=== PATIENT | female | born 1980 | race Caucasian/White ===

== ENCOUNTER 2016-10-25 11:34 | Emergency (ER) | payer MEDICARE, MEDICAID ==
[2016-10-25 11:58] VITALS: BP 125/92
--- NOTE | 2016-10-25 13:09 | UC ---
Lower Extremity/Ankle HPI - HPI Summary HPI Summary: complaint of left ankle pain after twisting it after getting off the toilet yesterday able to ambulate with tenderness last night swollen on lateral side of ankle constant aching pain that radites into her foot resting lessens the pain movement increases the pain has taken tylenol and ibuprofen with minimal relief can't fell from the waist down normally due to spinal surgery - History of Current Complaint Chief Complaint: UCLowerExtremity Stated Complaint: LEFT FOOT/ANKLE INJURY Time Seen by Provider: 10/25/16 12:58 Hx Obtained From: Patient Hx Last Menstrual Period: 10/24/16 - Allergies/Home Medications Allergies/Adverse Reactions: Allergies Allergy/AdvReac Type Severity Reaction Status Date / Time Latex Allergy Hives Verified 07/30/16 13:23 PMH/Surg Hx/FS Hx/Imm Hx Previously Healthy: Yes Endocrine History Of: Denies: Diabetes Cardiovascular History Of: Denies: Hypertension, Pacemaker/ICD GI/ History Of: Denies: Renal Disease Psychological History Of: Reports: Anxiety, Depression - Surgical History Surgical History: Yes Surgery Procedure, Year, and Place: LT HIP - A BABY -. TONSILECTOMY. C SECTION 11/06. LAMINECTOMY 02/05. BACTERIAL WASHOUT 03/08. SPINAL TUMOR REMOVAL 2014 - Family History Known Family History: Positive: None Negative: Cardiac Disease, Hypertension, Diabetes - Social History Occupation: Unemployed Lives: With Family Alcohol Use: None Substance Use Type: None Smoking Status (MU): Never Smoked Tobacco Have You Smoked in the Last Year: No Review of Systems Constitutional: Negative Skin: Negative Eyes: Negative ENT: Negative Respiratory: Negative Cardiovascular: Negative Gastrointestinal: Negative Genitourinary: Negative Motor: Negative Neurovascular: Negative Musculoskeletal: Other: - left ankle paion Neurological: Negative Psychological: Negative All Other Systems Reviewed And Are Negative: Yes Physical Exam Triage Information Reviewed: Yes Appearance: No Pain Distress, Well-Nourished, Obese Vital Signs: Initial Vital Signs Temp 97.7 F 10/25/16 11:52 Pulse 93 10/25/16 11:52 Resp 16 10/25/16 11:52 BP 125/92 10/25/16 11:52 Pulse Ox 100 10/25/16 11:52 Vital Signs Reviewed: Yes Eyes: Positive: Conjunctiva Clear ENT: Positive: Pharynx normal, TMs normal Neck: Positive: No Lymphadenopathy Respiratory: Positive: Lungs clear, Normal breath sounds, No respiratory distress Cardiovascular: Positive: RRR, No Murmur, Pulses Normal Abdomen Description: Positive: Nontender, Soft Bowel Sounds: Positive: Present Musculoskeletal: Positive: Other: - LLE- edema and tenderness inlateral side of ankle. tenderness over 5th metatarsal, pain with inversion Full ROM dorsi/ plantar flexion, inversion & eversion. Mccamey test negative.no step off in Achilles tendon but tendern to palpation Neurological: Positive: Alert Psychological Exam: Normal Skin Exam: Normal Lower Extremity Course/Dx - Differential Dx/Diagnosis Differential Diagnosis/HQI/PQRI: Fracture (Closed), Sprain, Strain Provider Diagnoses: left ankle sprain Discharge - Discharge Plan Condition: Stable Disposition: HOME Patient Education Materials: Ankle Sprain (ED), RICE Therapy (ED) Referrals: Fariha ANG,Malvin Queen [Primary Care Provider] - [facility] [Outside] Additional Instructions: ANKLE SPRAIN What is an Ankle Sprain? An ankle sprain is a partial or complete tearing of the ligaments that support the ankle joint. Most ankle sprains affect the ligaments on the outside of the joint. X-rays will not show ligament injury and are often not needed for simple sprains. Symptoms Might Include: Pain in your ankle, foot, or lower leg area Bruising and/or Swelling Possible deformity (bones not lined up as usual) Treatment Recommendations: You should prop your foot up above the level of your heart for the first 24 to 48 hours. This helps cut down on the pain and swelling. You should put an ice pack wrapped in a towel on the injured area for 15 to 20 minutes every 2 to 3 hours when you are awake for the first 2 to 3 days. A compression dressing, like a Velcro splint or Amarjit wrap, will help give support and cut down on swelling. If the wrap is too tight, it may cause numbness, tingling, paleness, or a cool feeling. If this happens, the wrap should be taken off and put back on looser. Crutches should be used if there is any pain when you put your weight on your foot. You usually only need to use crutches for the first few days. If you have a more severe sprain you might need to use them longer. As the pain gets better , try to walk without the crutches a little at a time until you can walk without any pain. When your sprain starts to get better you should start exercising. Sit with your ankle off the ground and move it around in all directions 4 to 6 times a day as long as it is not painful. When you can walk without crutches, slowly start to increase your activity by walking short distances. Remember not to overdo it. It may take 3 to 4 weeks to completely get better, even for a mild sprain. It can take much longer for more severe sprains. More severe sprains will need a splint. You will need to see a healthcare provider again in the next 2 to 3 days. [id number] anti-inflammatory medicine like ibuprofen (Motrin, Advil) or naproxen (Aleve) may help with both the pain and the swelling in your joints. You should not take these medicines if you have a history of bleeding in your stomach. The healthcare provider may give you a prescription for a narcotic pain medicine to ease the pain. Do not drive or do things that need your full attention after taking this medication. Call Your Doctor or Return Here IF: You have a lot more pain or swelling. If the pain is not getting better in 3 days. If you start to have numbness or tingling in your foot or ankle. If the injured area starts to feel cool to the touch or is pale or bluish in color. If you start to have any other symptoms that worry you.
--- NOTE | 2016-10-25 13:34 | RAD ---
INDICATION: Lateral left foot and ankle pain COMPARISON: None TECHNIQUE: AP, lateral, and oblique views were obtained. FINDINGS: There are mild hammertoe deformities. The bony structures, joint spaces, and soft tissues are otherwise normal for age. IMPRESSION: NO ACUTE BONY FINDINGS.
--- NOTE | 2016-10-25 13:35 | RAD ---
INDICATION: Lateral left foot and ankle pain COMPARISON: None TECHNIQUE: AP, lateral, and oblique views were obtained. FINDINGS: There are small heel spurs. The bony structures, joint spaces, and soft tissues are otherwise normal for age. IMPRESSION: NO ACUTE BONY FINDINGS.
== END 2016-10-25 14:19 | disposition home or self-care (01) ==
LOC: UCEAST 11:34
DX: S93.402A Sprain of unspecified ligament of left ankle, initial encounter (principal); X50.1XXA Overexertion from prolonged static or awkward postures, initial encounter; Y93.89 Activity, other specified; Y92.9 Unspecified place or not applicable; E66.9 Obesity, unspecified
CPT/HCPCS: 99213; G0463

== ENCOUNTER 2017-01-23 14:43 | Emergency (ER) | payer MEDICARE, MEDICAID ==
[2017-01-23 14:52] VITALS: BP 137/96
--- NOTE | 2017-01-23 15:26 | UC ---
Throat Pain/Nasal Torres HPI - HPI Summary HPI Summary: Patient has had increased sore throat for the past week. there is swelling of the right side of the neck, dysphagia. fever. - History of Current Complaint Chief Complaint: UCGeneralIllness Stated Complaint: FEVER,SWOLLEN THROAT Time Seen by Provider: 01/23/17 14:58 Hx Obtained From: Patient Hx Last Menstrual Period: 01/20/17 ?: No Onset/Duration: Sudden Onset, Lasting Weeks Severity: Moderate Cough: None Associated Signs & Symptoms: Positive: Dysphagia, Hoarseness, Fever - Epiglottits Risk Factors Epiglottis Risk Factors: Negative - Allergies/Home Medications Allergies/Adverse Reactions: Allergies Allergy/AdvReac Type Severity Reaction Status Date / Time Latex Allergy Hives Verified 01/23/17 14:52 Home Medications: Home Medications Ibuprofen [Advil] 800 mg PO Q6HR PRN 01/23/17 [History Confirmed 01/23/17] Interferon Beta 1a (NF) [Rebif (NF)] 0.5 ml INJ SEE INSTRUCTIONS 01/23/17 [ History Confirmed 01/23/17] PMH/Surg Hx/FS Hx/Imm Hx Previously Healthy: Yes - Surgical History Surgical History: Yes Surgery Procedure, Year, and Place: LT HIP - A BABY -. TONSILECTOMY. C SECTION 11/06. LAMINECTOMY -LSP TUMOR REMOVED 01/2015. BACTERIAL WASHOUT 03/08 - Family History Known Family History: Positive: None Negative: Cardiac Disease, Hypertension, Diabetes - Social History Alcohol Use: None Substance Use Type: None Smoking Status (MU): Never Smoked Tobacco Have You Smoked in the Last Year: No Review of Systems Constitutional: Negative Skin: Negative Eyes: Negative ENT: Sore Throat Respiratory: Negative Cardiovascular: Negative Gastrointestinal: Negative Genitourinary: Negative Motor: Negative Neurovascular: Negative Musculoskeletal: Negative Neurological: Headache Psychological: Negative All Other Systems Reviewed And Are Negative: Yes Physical Exam Triage Information Reviewed: Yes Appearance: Ill-Appearing, Pain Distress, Obese Vital Signs: Initial Vital Signs Temp 99.0 F 01/23/17 14:48 Pulse 85 01/23/17 14:48 Resp 16 01/23/17 14:48 BP 137/96 01/23/17 14:48 Pulse Ox 97 01/23/17 14:48 Vital Signs Reviewed: Yes Eye Exam: Normal ENT: Positive: Pharyngeal erythema, TMs normal, Tonsillar swelling - right side large than left, Dental Exam: Normal Neck exam: Normal Neck: Positive: Supple, Nontender, Enlarged Nodes @ - right cervical and submandibular Respiratory Exam: Normal Respiratory: Positive: Chest non-tender, Lungs clear, Normal breath sounds Cardiovascular Exam: Normal Cardiovascular: Positive: RRR, No Murmur, Pulses Normal Abdominal Exam: Normal Abdomen Description: Positive: Nontender, No Organomegaly, Soft Bowel Sounds: Positive: Present Musculoskeletal Exam: Normal Neurological Exam: Normal Psychological Exam: Normal Skin Exam: Normal Throat Pain/Nasal Course/Dx - Course Course Of Treatment: hx obtained, exam performed, meds reviewed, rapid strep negative. treated for tonsillitis, recommend follow up in the next 2 days to make sure things are improving - Differential Dx/Diagnosis Provider Diagnoses: tonsillitis Discharge - Discharge Plan Condition: Stable Disposition: HOME Prescriptions: Amoxicillin/Clavulanate TAB* [Augmentin TAB 875*] 875 mg PO BID #20 tab Patient Education Materials: Tonsillitis (ED) Referrals: Brad Wilson MD [Primary Care Provider] - Additional Instructions: 1. Take the medication as prescribed. 2. Increase fluid intake 3. I recommend follow up in the next 2 days to make sure that you are improving. 4. If you develop difficulty breathing report to ER immediately
[2017-01-23] MEDS ORDERED: Amoxicillin/Clavulanate TAB* 875 MG PO ONE (15:29)
[2017-01-23] MEDS ORDERED: methylPREDNISolone 125 MG* 2 ML VIAL IM ONE (15:29)
== END 2017-01-23 15:51 | disposition home or self-care (01) ==
LOC: UCEAST 14:43
DX: J03.90 Acute tonsillitis, unspecified (principal)
CPT/HCPCS: 87651; 96372; 99212; A9270-GY; G0463; J2930

== ENCOUNTER 2018-06-27 05:56 | Day surgery (SDC) | payer MEDICARE, MEDICAID ==
[~2018-06-27 05:56] MED LIST: Buffered Lidocaine 0.9% SYRIN* 5 ML/SYR SYRINGE INTRADERM ONE
[2018-06-27] MEDS ORDERED: Sodium Citrate/Citric Acid* 15 ML UDC PO ONE (06:00)
[2018-06-27] MEDS ORDERED: Scopolamine 1.5 mg* PATCH ONE (06:45)
[2018-06-27] MEDS ORDERED: Dexamethasone IV* 4 MG/ML 1 ML (4 MG) ONE (06:45)
[2018-06-27] MEDS ORDERED: Ondansetron INJ* 2 MG/ML VIAL ONE (06:45)
[2018-06-27] MEDS ORDERED: ceFAZolin 1 GM in Dextrose (*) 1 GM/50 ML BAG IVPB ONE (06:46)
[2018-06-27] MEDS ORDERED: Sodium Citrate/Citric Acid* 15 ML UDC ONE (06:46)
[2018-06-27] MEDS ORDERED: ceFAZolin 1 GM in Dextrose (*) 0 GM/0 ML BAG IVPB ONE (06:46)
[2018-06-27] MEDS ORDERED: ceFAZolin 2 GM PREMIX in ORs 2 GM/50 ML BAG IVPB ONE (06:46)
[2018-06-27] MEDS ORDERED: Lidocaine 1% INJ* 10 MG/ML 30 ML SDV ONE (07:13)
[2018-06-27] MEDS ORDERED: Bupivacaine 0.25% SDV PF* 10 ML VIAL INJ ONE (07:13)
[2018-06-27] MEDS ORDERED: Lidocain 1% EPI 1:100,000 * 30 ML MDV ONE (07:28)
[2018-06-27] MEDS ORDERED: Propofol* 10 MG/ML 20 ML BTL ONE ×2 (07:42→12:08)
[2018-06-27] MEDS ORDERED: Rocuronium* 10 MG/ML VIAL ONE ×2 (07:43→09:51)
[2018-06-27] MEDS ORDERED: fentaNYL* 50 MCG/ML 2 ML VIAL (100 MCG VIAL) ONE ×3 (07:48→12:54)
[2018-06-27] MEDS ORDERED: Midazolam* 1 MG/ML 2 ML VIAL (2 MG) ONE (08:09)
[2018-06-27] MEDS ORDERED: KETAMINE HCL* 50 MG/ML 10 ML VIAL ONE (08:21)
[2018-06-27] MEDS ORDERED: Acetaminophen IV 1GM/100ML * 1,000 MG/100 ML VIAL IVPB ONE (09:58)
[2018-06-27] MEDS ORDERED: DiMENhydriNATE IV* 50 MG/ML VIAL IV PUSH PRN (09:58)
[2018-06-27] MEDS ORDERED: Naloxone* 0.4 MG/ML 1 ML VIAL IV PRN (09:58)
[2018-06-27] MEDS ORDERED: Glycopyrrolate IV* 0.2 MG/ML 1 ML VIAL ONE (11:25)
[2018-06-27] MEDS ORDERED: Neostigmine Methylsulfate* 2 MG/2 ML SYRINGE ONE (11:25)
[2018-06-27] MEDS: fentaNYL* 50 MCG/ML 2 ML VIAL (100 MCG VIAL) IV PRN ×3 (12:36→13:18)
[2018-06-27] MEDS ORDERED: HYDROcodone/ACETAMIN 5-325 MG* 1 TAB ONE (14:09)
[2018-06-27 14:44] VITALS: BP 115/61
== END 2018-06-27 15:21 | disposition home or self-care (01) ==
LOC: OR 05:56
PROVIDERS: ATTEND Plastic Surgery
DX: N62 Hypertrophy of breast (principal); E66.9 Obesity, unspecified; J45.909 Unspecified asthma, uncomplicated; G35 Multiple sclerosis; Z80.3 Family history of malignant neoplasm of breast
CPT/HCPCS: 88305; A9270-GY; A9272; J0690; J1100; J2250; J2405; J2704; J3010; J3490

== ENCOUNTER 2018-08-29 11:20 | Emergency (ER) | payer MEDICARE, MEDICAID ==
--- OUTSIDE RECORDS SUMMARY | 2018-08-29 11:55 | XMS REPORT | Continuity of Care Document ---
:1980 External Reference #:[id number] Author Name CoreyAnil velazquezt Care Team Providers Name Role Phone Alondra Fisher M.D. Primary Care Physician Unavailable Payers Type Date Identification Numbers Payment Provider Subscriber Effective: Policy Number: [id number] Medicare Shani Otoole 2012 Any PayID: [id number] [address] [place] [address] Policy Number: [id number] Medicaid Shani Agarwal Group Name: 1 1 [address] PayID: [id number] [place] [address] Expires: 2010 Policy Number: [id number] [employer] [place] Shani Agarwal PayID: [id number] [address] [address] [place] [address] Effective: 2014 Policy Number: [id number] BS [employer]ets Shani Agarwal Expires: 2015 PayID: [id number] [address] [address] [place] [address] Advance Directives Description No Information Available Problems Date Description Provider Status Onset: 01/06/2015 Relapsing remitting multiple Sheeba Soto M.D. Active sclerosis Onset: 01/06/2015 Chronic retention of urine Sheeba Soto M.D. Active Onset: 01/06/2015 Migraine with aura Sheeba Soto M.D. Active Onset: 01/06/2015 Depressive disorder Sheeba Soto M.D. Active Onset: 01/10/2015 Syringomyelia and syringobulbia Fawad Victor M.D. 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 Active brain and spinal cord Note: Surgery 02/13/15: history of Keldron, complicated by MRSA.; Syringo-hydromyelia, myxopapillary ependymoma, WHO grade 1. Onset: 03/02/2016 Acute retrobulbar neuritis Leighann Villar MD Active Onset: 11/10/2016 Posttraumatic stress disorder Akhil Snow NP Active Onset: 11/10/2016 Anxiety Akhil Snow NP Active Onset: 04/05/2017 Decreased cortisol level Brad Wilson M.D.,FACP Active Note: borderline low AM cortisol Onset: 06/12/2018 Body mass index 40+ - severely Brad Wilson M.D., FACP Active obese Family History Date Family Member(s) Problem(s) Comments General Heart Disease General Diabetes General Mental Illness NOS General Asthma General Cancer Father Alive And Well Mother Asthma Mother Hypertension Mother Heart Murmur valve problems Siblings 2 First Brother Alive And Well First Sister Migraine First Sister Asthma Social History Type Date Description Comments Sex Unknown Marital Status Lives With Family Lives With Mother Lives With 11/12/2014 Son 2 y.o. on Tuesday Occupation Nurse Occupation Unemployed Work Status Not Currently Working Tobacco Use Start: Unknown Never Smoked Cigarettes Smoking Status Reviewed: 08/03/18 Never Smoked Cigarettes ETOH Use 06/12/2018 Denies alcohol use Recreational Drug Use Denies Drug Use Tobacco Use Start: Unknown Patient has never smoked Exercise Type/Frequency Exercises sporadically Allergies, Adverse Reactions, Alerts Date Description Reaction Status Severity Comments 01/06/2015 Latex Rash Active Severe 03/03/2018 Macrobid Allergic asthma, Urticaria Active Severe 11/10/2016 NKDA Inactive Medications Medication Date Status Form Strength Qnty SIG Indications Ordering Provider Doxycycline 08/03 Active Capsules 100mg 20cap 1 cap twice J Hyclate s a day for 10 Fisher, days Flonase Allergy 08/03 Active Suspension 50mcg/Act 9.900 2 sprays in Relief ml each nostril Fisher, twice a day for one week Rebif 04/26 Active Soln 44mcg/0.5 18ml administer 1 Prefill ML injection [place]y, Syringe subcutaneous M.D. ly three times a week Ventolin HFA 03/03 Active Aerosol 108(90Bas 54gm 2 puffs by e) mouth four D. [place], mcg/Act times a day M.D.,FACP as needed Flovent HFA 03/03 Active Aerosol 110mcg/Ac 12uni Take 2 Puffs t ts By Mouth D. [place], Twice A Day M.D.,FACP Propranolol HCL 11/09 Active Caps ER 80mg 90cap 1 by mouth G43.919 Sheeba 24HR s at bedtime Vijay Soto Ondansetron 01/26 Active Tablets 4mg 30tab dissolve one J02.9 Dispers s tablet GARFIELD Trujillo orally every 8 hours as needed for nausea. Rollator 12/07 Active Misc 1unit with 4 G35 s wheels, [place]y, brakes, M.D. basket and seat. dx repeat falls, multiple sclerosis, leg weakness Maxalt 02/07 Active Tablets 10mg 12tab take 1 by G43.101 s mouth as [place]y, needed M.DShanon migraine, may repeat after 2 hours; maximum 2 in 24 hours, max: 2 days a week Ibuprofen Active Cap 200mg 2 caps po bid prn Tizanidine HCL Active Tablets 4mg 90tab take 1 by Sheeba s mouth every [place]y, night at M.D. bedtime Folic Acid Active Tablets 1mg 1 by mouth / every day Calcium Active Capsule 1 cap po Unknown Carbonate/Vit daily in D Vitamin B12 Active Tab 1 tab po daily Lamictal Active Tablets 150mg 1 by mouth /0000 every day Minipress Active Capsules 2mg 2 cap po qhs / Cymbalta Active Caps DR 60mg 1 by mouth / Part every day Wellbutrin XL Active Tablets ER 300mg 1 by mouth 24HR every day Omeprazole Active Capsules DR 20mg 1 by mouth Unknown / daily Vitamin D Active Tablets 5000Units 1 by mouth 0000 every day Vesicare Active Tablets 10mg 1 daily Liothyronine Active Tablets 25mcg 1 in am Unknown Sodium Zinc Active Tablets 50mg 1 qd Trazodone HCL Active Tablets 100mg at bedtime Solu-Medrol 03/15 Hx Solution 1000mg iv in 100ml G35 Rec of normal Cowdery, - saline every M.D. 06/12 day x 3 keep iv in per protocol Doxycycline 03/03 Hx Tablets 100mg 20tab 1 by mouth Brad Fontanez s twice a day Magan Jefferson M.D.,[facility] 03/13 Penicillin V 02/23 Hx Tablets 500mg 28tab four times a Brad Andrews s day for 7 D. Steve, - days Vijay,[facility] 03/02 Acetaminophen-C 08/16 Hx Tablets 300-30mg 30tab 1-2 tab by Brad gaxiolaeindima #3 s mouth 3x a Susana Wilson, - day as Vijay,FACP 11/08 needed Doxycycline 04/05 Hx Tablets 100mg 20tab 1 by mouth Brad Fontanez s twice a day Susana Wilson, Magan Linares,[facility] 04/15 Clindamycin HCL 01/26 Hx Capsules 300mg 40cap one capsule J02.9 Luis s by mouth Ronnie, POULTRY BONER - every 6 09/12 hours for days Lidocaine 01/26 Hx Solution 2% 100un gargle with J02.9 Luis Viscous its 15ml every 4 Ronnie, POULTRY BONER - hours as 04/05 needed for throat pain. Hydrocodone-Amarjit 01/26 Hx Tablets 5-325mg 30tab take 1-2 J02.9 Luis taminophen s tablets Ronnie, POULTRY BONER - every 8 09/12 hours for pain. Augmentin 01/23 Hx Tablets 875-125mg 20tab Twice Daily s - 01/26 Cipro 11/23 Hx Tablets 250mg 10tab 1 tablet by Akhil /2016 s mouth twice [place]an, - a day x's 5 POULTRY BONER Sulfamethoxazol 11/23 Hx Tablets 800-160mg 6tabs take 1 Akhil e/Trimethoprim tablet twice [place], DS - a day for 3 POULTRY BONER Macrobid 11/10 Hx Capsules 100mg 14cap 1 cap by N39.0 s mouth q12 Venezuelan, - hours x 7 POULTRY BONER Solu-Medrol 07/27 Hx Solution 1000mg 100cc infuse in Rec 100ml of [place]y, - normal M.D. 05/11 saline iv over 1 hour everyday x 5 days. dx: multiple sclerosis (g35). may keep in iv per protocol Rebif Rebidose 05/07 Hx Solution 44mcg/0.5 12uni inject sq Auto-Inject ML ts tiw. keep Cowdery, - refrigerated M.D. 04/26 . freezing. discard syringe after 1 use Propranolol HCL 03/08 Hx Caps ER 60mg 90cap Take One G43.919 Jennifer M. ER 24HR s Capsule By Hosea, - Mouth Every M.D. 11/09 Day AT Bedtime Prednisone 03/02 Hx Tablets 20mg 21tab 3qam x3 days G35 s then 2qam x3 MD Jian - days then 07/14 1qam x3 days then 1/2qam x3 days. Take in Am with food. Avonex 02/10 Hx Kit 30mcg 12uni inject ts intramuscula Brittany, - r every week M.D. 03/08 (Pen) Fax /2016 Id# [id number] Ketorolac 12/17 Hx Tablets 10mg 21tab 1 tablet Leighann Tromethamine s every 6 MD Jian - hours as 02/26 needed for headache for 5 days max. May take 2 tabs as first dose. Prednisone 12/01 Hx Tablets 20mg 20tab take 3 po s qam x 3days, Cowdery, - then 2 po M.D. 02/26 qam x3 days then 1 po qam x3 days then 1/2 po qam x3 days (take in am with food) Solu-Medrol 11/24 Hx Solution 1000mg 100cc infuse in Rec 100ml of [place], - normal M.D. 02/26 saline iv over 1 hour everyday x 2 days. dx: optic neuritis. may keep in iv per protocol Gabapentin 01/08 Hx Capsules 300mg 60cap 1 by mouth 782.0 s twice a day. Negin POULTRY BONER - 08/12 Avonex Pen 01/08 Hx Kit 30mcg/0.5 12uni inject ML ts intramuscula Cowdery, - r every week M.D. 02/10 Relpax 01/06 Hx Tablets 40mg 12tab take 1 by 346.02 s mouth as Cowdanayy, - needed M.D. 01/22 migraine, November repeat after 2 hours, maximum two tablets a day, maximum 2 days a week Oxycodone/Aceta 08/17 Hx Tablets 5-325mg 80tab 1 or 2 Mary min s tablests po Mahesh, - every 4-6 M.D. 12/23 hours as needed for pain Lorazepam 08/02 Hx Tablets 1mg 2tabs take one Mary tablet 1 Mahesh, - hour prior M.D. 08/17 to repeat once as needed Omeprazole 00/ Hx Unknown / - 12/23 Metoprolol Hx Unknown Succinate ER / - 12/23 Lamictal Hx Unknown / - 12/23 Trazodone HCL 00 Hx Tab 50mg 1 tab po qhs Unknown /0000 prn - 05/10 Ergocalciferol 00/ Hx Unknown / - 12/23 Inland 00/00 Hx Unknown / - 12/23 Prednisone 00/ Hx Unknown / - 12/23 Hydrocodone-Amarjit Hx Tablets 5-325mg 40tab 1 by mouth Sheeba taminophen / s every 6 [place]y, - hours prn M.D. 02/13 pain Ampyra Hx Tablets ER 10mg 1 twice a Unknown /0000 12HR day - 01/06 Ondansetron 00 Hx Tablets 4mg 30tab 1 tab by Leighann /0000 Dispers s mouth every MD Jian - 6h as needed 06/30 Celebrex 00 Hx Capsules 50mg 1 by mouth Unknown /0000 every day - 01/22 Remeron 00 Hx Tablets 15mg 1 by mouth Unknown /0000 at bedtime - 05/13 Xanax 00 Hx Tablets 0.5mg by mouth Unknown /0000 three times - a day as 08/25 Imitrex Hx Solution 4mg/0.5ML inject at Unknown Statdose System /0000 Auto-Inject the onset of - migraine, 05/13 after 1 hour if needed; max 2/day, max 2days/wk Imitrex 00 Hx Tablets 100mg every 2 Unknown /0000 hours as - needed mdd2 05/13 Bactrim Hx Tablets 400-80mg 2 tab by Unknown /0000 mouth bid - 08/25 Clindamycin HCL 00 Hx Capsules 1000mg 1 tablet by Unknown /0000 mouth tid - 08/22 Lyrica Hx Capsules 50mg 1 by mouth Unknown /0000 three times - a day 11/29 Morphine 00 Hx Tablets 15mg 1 po tid Unknown Sulfate /0000 - 02/26 Hydromorphone Hx T24a 16mg 1 by mouth Unknown HCL ER /0000 every day - 10/31 Keflex Hx Capsules 500mg one tablet Unknown /0000 qd - 06/30 Levothyroxine 00 Hx Tablets 25mcg 1 by mouth Unknown Sodium /0000 every day - 06/30 Cephalexin Hx Capsules 500mg 1 by mouth Unknown /0000 qd - 01/26 Immunizations CPT Code Status Date Vaccine Reaction Lot # [id number] Given 05/15/2018 Influenza Virus Vaccine, Quadrivalent, Split, Preservative Free [id number] Given 08/16/2017 Influenza Virus Vaccine, [id number] Quadrivalent, Split, Preservative Free [id number] Given 11/10/2016 Measles Mumps And Rubella patient tolerated [id number] MMR injection w/ no complaint of pain and no immediate adverse effect Vital Signs Date Vital Result Comment 08/03/2018 10:31am Height 69 inches 5'9" Weight 350.25 lb Heart Rate 83 /min BP Systolic 100 mmHg BP Diastolic 62 mmHg Body Temperature 97.4 F O2 % BldC Oximetry 97 % BMI (Body Mass Index) 51.7 kg/m2 07/28/2018 9:21am Height 69 inches 5'9" Weight 325.00 lb Heart Rate 74 /min BP Systolic 120 mmHg BP Diastolic 88 mmHg BMI (Body Mass Index) 48.0 kg/m2 06/12/2018 11:07am Height 69 inches 5'9" Weight 362.00 lb Heart Rate 79 /min BP Systolic Sitting 155 mmHg automatic wrist cuff BP Diastolic Sitting 100 mmHg automatic wrist cuff BP Systolic Recheck 122 mmHg BP Diastolic Recheck 80 mmHg Body Temperature 97.7 F O2 % BldC Oximetry 94 % BMI (Body Mass Index) 53.5 kg/m2 03/24/2018 11:36am Height 69 inches 5'9" Weight 359.00 lb Heart Rate 72 /min BP Systolic Sitting 128 mmHg BP Diastolic Sitting 84 mmHg Respiratory Rate 16 /min BMI (Body Mass Index) 53.0 kg/m2 03/15/2018 10:16am Height 67.5 inches 5'7.50" Weight 356.00 lb Heart Rate 80 /min BP Systolic Sitting 130 mmHg BP Diastolic Sitting 88 mmHg BMI (Body Mass Index) 54.9 kg/m2 03/03/2018 2:55pm Height 67.5 inches 5'7.50" Weight 355.00 lb Heart Rate 105 /min BP Systolic Sitting 120 mmHg BP Diastolic Sitting 82 mmHg Body Temperature 98.5 F O2 % BldC Oximetry 95 % BMI (Body Mass Index) 54.8 kg/m2 11/09/2017 11:36am Height 67.5 inches 5'7.50" Weight 320.00 lb Heart Rate 74 /min BP Systolic 136 mmHg BP Diastolic 92 mmHg Respiratory Rate 16 /min BMI (Body Mass Index) 49.4 kg/m2 08/16/2017 8:25am Heart Rate 84 /min BP Systolic Sitting 124 mmHg BP Diastolic Sitting 82 mmHg Body Temperature 98.5 F O2 % BldC Oximetry 96 % 05/11/2017 10:56am Height 70 inches 5'10" Weight 347.00 lb Heart Rate 64 /min BP Systolic Sitting 120 mmHg BP Diastolic Sitting 72 mmHg Respiratory Rate 16 /min BMI (Body Mass Index) 49.8 kg/m2 04/05/2017 11:32am Weight 335.00 lb Heart Rate 83 /min BP Systolic Sitting 130 mmHg BP Diastolic Sitting 80 mmHg Body Temperature 99.1 F O2 % BldC Oximetry 94 % 01/26/2017 11:51am Heart Rate 85 /min BP Systolic Sitting 124 mmHg BP Diastolic Sitting 70 mmHg Body Temperature 97.8 F O2 % BldC Oximetry 98 % 12/01/2016 1:37pm Height 67.75 inches 5'7.75" Weight 229.00 lb Heart Rate 72 /min BP Systolic Sitting 116 mmHg BP Diastolic Sitting 80 mmHg Respiratory Rate 14 /min BMI (Body Mass Index) 35.1 kg/m2 11/10/2016 1:22pm Height 67.75 inches 5'7.75" Weight 331.50 lb Heart Rate 76 /min BP Systolic Sitting 124 mmHg BP Diastolic Sitting 92 mmHg Body Temperature 98.9 F O2 % BldC Oximetry 99 % BMI (Body Mass Index) 50.8 kg/m2 11/01/2016 11:12am Height 70 inches 5'10" Weight 238.00 lb Heart Rate 64 /min BP Systolic Sitting 130 mmHg BP Diastolic Sitting 90 mmHg Respiratory Rate 14 /min BMI (Body Mass Index) 34.1 kg/m2 10/29/2016 10:28am Height 70 inches 5'10" Weight 280.00 lb Heart Rate 67 /min BP Systolic 141 mmHg BP Diastolic 94 mmHg Respiratory Rate 18 /min Body Temperature 97.9 F Pain Level 7 BMI (Body Mass Index) 40.2 kg/m2 08/05/2016 11:11am Height 70 inches 5'10" Weight 321.00 lb Heart Rate 88 /min BP Systolic Sitting 116 mmHg BP Diastolic Sitting 84 mmHg Respiratory Rate 14 /min BMI (Body Mass Index) 46.1 kg/m2 07/15/2016 10:48am Height 70 inches 5'10" Weight 321.00 lb Heart Rate 56 /min BP Systolic Sitting 128 mmHg BP Diastolic Sitting 92 mmHg Respiratory Rate 14 /min BMI (Body Mass Index) 46.1 kg/m2 03/08/2016 3:13pm Height 70 inches 5'10" Weight 265.00 lb Heart Rate 72 /min BP Systolic Sitting 120 mmHg BP Diastolic Sitting 86 mmHg Respiratory Rate 14 /min BMI (Body Mass Index) 38.0 kg/m2 03/02/2016 9:03am Height 70 inches 5'10" Weight 265.00 lb Heart Rate 75 /min BP Systolic Sitting 118 mmHg BP Diastolic Sitting 62 mmHg Respiratory Rate 16 /min O2 % BldC Oximetry 98 % BMI (Body Mass Index) 38.0 kg/m2 12/08/2015 9:42am Height 70 inches 5'10" Weight 292.00 lb Heart Rate 80 /min BP Systolic Sitting 140 mmHg BP Diastolic Sitting 88 mmHg Respiratory Rate 16 /min BMI (Body Mass Index) 41.9 kg/m2 08/25/2015 1:22pm Height 70 inches 5'10" Weight 260.00 lb Heart Rate 68 /min BP Systolic Sitting 110 mmHg BP Diastolic Sitting 80 mmHg Respiratory Rate 16 /min BMI (Body Mass Index) 37.3 kg/m2 05/14/2015 4:32pm Height 70 inches 5'10" Weight 265.00 lb Heart Rate 84 /min BP Systolic Sitting 128 mmHg BP Diastolic Sitting 82 mmHg Respiratory Rate 14 /min BMI (Body Mass Index) 38.0 kg/m2 02/07/2015 11:25am Height 70 inches 5'10" Weight 274.00 lb Heart Rate 88 /min BP Systolic Sitting 146 mmHg BP Diastolic Sitting 88 mmHg Respiratory Rate 16 /min BMI (Body Mass Index) 39.3 kg/m2 01/10/2015 10:33am Height 70 inches 5'10" Weight 274.50 lb Heart Rate 76 /min BP Systolic Sitting 124 mmHg BP Diastolic Sitting 88 mmHg Pain Level 6 legs & feet BMI (Body Mass Index) 39.4 kg/m2 01/08/2015 11:35am Height 70 inches 5'10" Weight 240.00 lb Heart Rate 88 /min BP Systolic Sitting 136 mmHg BP Diastolic Sitting 88 mmHg Respiratory Rate 20 /min BMI (Body Mass Index) 34.4 kg/m2 01/08/2015 11:29am Height 70 inches 5'10" 01/06/2015 8:56am Height 70 inches 5'10" Weight 240.00 lb Heart Rate 80 /min BP Systolic Sitting 130 mmHg BP Diastolic Sitting 92 mmHg Respiratory Rate 16 /min BMI (Body Mass Index) 34.4 kg/m2 Results Test Date Facility Test Result H/L Range Note Type & Screen 06/20/2018 [facility] Patient Blood O Positive [address] [place] [address] [phone] Antibody Screen NEGATIVE Laboratory test 06/20/2018 [facility] Free T4 (Free 1.08 ng/dL N 0.61-1.[address] Thyroxine) [place] [address] [phone] T3 Total 131 ng/dL N 87-178 TSH (Thyroid Stim Horm) 2.06 mcIU/mL N 0.34-5.60 Vitamin D Total 25(Oh) 22.6 ng/mL N 20-50 CBC Auto Diff 06/20/2018 [facility] White Blood 6.3 10^3/uL N 3.5-10.[address] [place] [address] [phone] Red Blood Count 4.56 10^6/uL N 4.00-5.40 Hemoglobin 12.1 g/dL N 12.0-16.0 Hematocrit 37 % N 35-47 Mean Corpuscular Volume 82 fL N 80-97 Mean Corpuscular Hemoglobin 27 pg N 27-31 Mean Corpuscular HGB Conc 33 g/dL N 31-36 Red Cell Distribution Width 15 % N 10.5-15 Platelet Count 382 10^3/uL N 150-450 Mean Platelet Volume 7.5 fL N 7.4-10.4 Abs Neutrophils 4.1 10^3/uL N 1.5-7.7 Abs Lymphocytes 1.5 10^3/uL N 1.0-4.8 Abs Monocytes 0.5 10^3/uL N 0-0.8 Abs Eosinophils 0.2 10^3/uL N 0-0.6 Abs Basophils 0 10^3/uL N 0-0.2 Abs Nucleated RBC 0 10^3/uL Granulocyte % 65.1 % Lymphocyte % 24.3 % Monocyte % 7.2 % Eosinophil % 2.9 % Basophil % 0.5 % Nucleated Red Blood Cells % 0.1 Comp Metabolic Panel 03/23/2018 [facility] Sodium 136 mmol/L N 135-[address] [place] [address] [phone] Potassium 4.6 mmol/L N 3.5-5.0 Chloride 102 mmol/L N 101-111 Co2 Carbon Dioxide 29 mmol/L N 22-32 Anion Gap 5 mmol/L N 2-11 Glucose 91 mg/dL N 70-100 Blood Urea Nitrogen 13 mg/dL N 6-24 Creatinine 0.70 mg/dL N 0.51-0.95 BUN/Creatinine Ratio 18.6 N 8-20 Calcium 9.3 mg/dL N 8.6-10.3 Total Protein 6.1 g/dL Low 6.4-8.9 Albumin 3.8 g/dL N 3.2-5.2 Globulin 2.3 g/dL N 2-4 Albumin/Globulin Ratio 1.7 N 1-3 Total Bilirubin 0.60 mg/dL N 0.2-1.0 Alkaline Phosphatase 90 U/L N 34-104 Alt 13 U/L N 7-52 Ast 12 U/L Low 13-39 Egfr Non- 94.7 >60 Egfr 114.6 >60 2 CBC Auto Diff 03/23/2018 [facility] White Blood 9.8 10^3/uL N 3.5-10.[address] [place] [address] [phone] Red Blood Count 4.99 10^6/uL N 4.00-5.40 Hemoglobin 13.3 g/dL N 12.0-16.0 Hematocrit 41 % N 35-47 Mean Corpuscular Volume 82 fL N 80-97 Mean Corpuscular Hemoglobin 27 pg N 27-31 Mean Corpuscular HGB Conc 33 g/dL N 31-36 Red Cell Distribution Width 16 % High 10.5-15 Platelet Count 309 10^3/uL N 150-450 Mean Platelet Volume 8.1 um3 N 7.4-10.4 Abs Neutrophils 6.5 10^3/uL N 1.5-7.7 Abs Lymphocytes 2.5 10^3/uL N 1.0-4.8 Abs Monocytes 0.6 10^3/uL N 0-0.8 Abs Eosinophils 0.1 10^3/uL N 0-0.6 Abs Basophils 0 10^3/uL N 0-0.2 Abs Nucleated RBC 0 10^3/uL Granulocyte % 66.8 % N 38-83 Lymphocyte % 25.6 % N 25-47 Monocyte % 5.9 % N 0-7 Eosinophil % 1.5 % N 0-6 Basophil % 0.2 % N 0-2 Nucleated Red Blood Cells % 0 Liver Function 06/28/2017 [facility] Total Protein 6.6 g/dL N 6.4-8.[address] [place] [address] [phone] Albumin 4.0 g/dL N 3.2-5.2 Globulin 2.6 g/dL N 2-4 Albumin/Globulin Ratio 1.5 N 1-3 Total Bilirubin 0.40 mg/dL N 0.2-1.0 Direct Bilirubin 0.10 mg/dL N 0.03-0.18 Indirect Bilirubin 0.3 mg/dL N 0.3-1.0 Alkaline Phosphatase 104 U/L N 34-104 Alt 14 U/L N 7-52 Ast 16 U/L N 13-39 CBC Auto Diff 01/26/2017 [facility] White Blood 8.2 10^3/uL N 3.5-10.[address] [place] [address] [phone] Red Blood Count 4.38 10^6/uL N 4.0-5.4 Hemoglobin 11.0 g/dL Low 12.0-16.0 Hematocrit 35 % N 35-47 Mean Corpuscular Volume 79 fL Low 80-97 Mean Corpuscular Hemoglobin 25 pg Low 27-31 Mean Corpuscular HGB Conc 32 g/dL N 31-36 Red Cell Distribution Width 16 % High 10.5-15 Platelet Count 357 10^3/uL N 150-450 Mean Platelet Volume 8 um3 N 7.4-10.4 Abs Neutrophils 5.0 10^3/uL N 1.5-7.7 Abs Lymphocytes 2.4 10^3/uL N 1.0-4.8 Abs Monocytes 0.6 10^3/uL N 0-0.8 Abs Eosinophils 0.1 10^3/uL N 0-0.6 Abs Basophils 0.1 10^3/uL N 0-0.2 Abs Nucleated RBC 0.01 10^3/uL N Granulocyte % 61.1 % N 38-83 Lymphocyte % 29.3 % N 25-47 Monocyte % 7.9 % N 1-9 Eosinophil % 1.1 % N 0-6 Basophil % 0.6 % N 0-2 Nucleated Red Blood Cells % 0.1 N Laboratory test 01/26/2017 [facility] Monospot Negative N Negative [address] [place] [address] [phone] Laboratory test 01/17/2017 [facility] TSH (Thyroid 0.79 mcIU/mL N 0.34-5.60 4, [address] Stim Horm) [place] [address] [phone] Free T4 (Free Thyroxine) 0.61 ng/dL N 0.61-1.12 6 Cortisol 7.50 g/dL N 7 Basic Metabolic Panel 01/17/2017 [facility] Sodium 137 mmol/L N 133-[address] [place] [address] [phone] Potassium 4.3 mmol/L N 3.5-5.0 Chloride 104 mmol/L N 101-111 Co2 Carbon Dioxide 26 mmol/L N 22-32 Anion Gap 7 mmol/L N 2-11 Glucose 87 mg/dL N 70-100 Blood Urea Nitrogen 16 mg/dL N 6-24 Creatinine 0.57 mg/dL N 0.51-0.95 BUN/Creatinine Ratio 28.1 High 8-20 Calcium 9.1 mg/dL N 8.6-10.3 Egfr Non- 120.7 N >60 Egfr 155.2 N >60 8 Lipid Profile 01/17/2017 [facility] Triglycerides 72 mg/dL N 9 (Trig/Chol/HDL) [address] [place] [address] [phone] Cholesterol 169 mg/dL N 10 HDL Cholesterol 49.6 mg/dL N 11 LDL Cholesterol 105 mg/dL N 12 CBC Auto Diff 01/17/2017 [facility] White Blood 6.1 10^3/uL N 3.5-10.[address] [place] [address] [phone] Red Blood Count 4.50 10^6/uL N 4.0-5.4 Hemoglobin 11.3 g/dL Low 12.0-16.0 Hematocrit 35 % N 35-47 Mean Corpuscular Volume 79 fL Low 80-97 Mean Corpuscular Hemoglobin 25 pg Low 27-31 Mean Corpuscular HGB Conc 32 g/dL N 31-36 Red Cell Distribution Width 16 % High 10.5-15 Platelet Count 357 10^3/uL N 150-450 Mean Platelet Volume 8 um3 N 7.4-10.4 Abs Neutrophils 4.0 10^3/uL N 1.5-7.7 Abs Lymphocytes 1.5 10^3/uL N 1.0-4.8 Abs Monocytes 0.5 10^3/uL N 0-0.8 Abs Eosinophils 0.1 10^3/uL N 0-0.6 Abs Basophils 0.1 10^3/uL N 0-0.2 Abs Nucleated RBC 0 10^3/uL N Granulocyte % 64.9 % N 38-83 Lymphocyte % 24.2 % Low 25-47 Monocyte % 8.1 % N 1-9 Eosinophil % 1.8 % N 0-6 Basophil % 1.0 % N 0-2 Nucleated Red Blood Cells % 0 N Laboratory test 01/17/2017 [facility] T3 Total 1.75 ng/mL N 0.87-1.[address] [place] [address] [phone] Laboratory test 01/17/2017 [facility] T3 Free 4.20 pg/mL High 2.5-3.[address] [place] [address] [phone] Vitamin D Total 25(Oh) 37.6 ng/mL N 30-50 Copper, Serum 1.59 g/mL Abnormal 0.75-1.45 13 Zinc Serum 1.48 g/mL Abnormal 0.66-1.10 14 Ceruloplasmin 41 mg/dL N 18-53 15 Leukemia/Lymphoma 01/11/2017 [facility] Path Interpretation TNP N Phenot [address] 2-[address] [place] [address] [phone] Path Interpret > 16 Marker TNP N Path Interpret 9-15 Marker (SEE NOTE) N 16 Leukemia/Lymphoma Flow 01/11/2017 [facility] Path Interpretation TNP N [address] [place] [address] [phone] Path Interpret > 16 Marker TNP N Path Interpret 9-15 Marker (SEE NOTE) N 17 Ua Routine 11/10/2016 [facility] Ua Specific [place] 1.020 Ua PH 5 Ua Color yellow Ua Appera clear Ua WBC ++ Ua Protein trace Ua Glucose neg Ua Ketones neg Ua Bilirubin neg Ua Urobilinogen normal Ua Nitrite + Ua Occult Blood trace Urine Culture And 11/10/2016 [facility] Urine SEE RESULT 18 , [address] [place] [address] [phone] [employer] JCV 12/19/2015 [facility] JCV (SEE NOTE) N [address] [place] [address] [employer] [phone] Laboratory test 12/19/2015 [facility] Nmo Igg Negative N Negative [address] [place], [place] [id number] [phone] Creatine Kinase(CK) 35 U/L N 10-223 Laboratory test 11/24/2015 [facility] Partial 33.2 seconds N 26.0-36.[address] [place] [address] PTT [phone] Comp Metabolic 11/24/2015 [facility] Sodium 137 mmol/L N 133- [address] [place] [address] [phone] Potassium 3.5 mmol/L N 3.5-5.0 Chloride 105 mmol/L N 101-111 Co2 Carbon Dioxide 27 mmol/L N 22-32 Anion Gap 5 mmol/L N 2-11 Glucose 112 mg/dL High 70-100 Blood Urea Nitrogen 13 mg/dL N 6-24 Creatinine 0.69 mg/dL N 0.51-0.95 BUN/Creatinine Ratio 18.8 N 8-20 Calcium 9.0 mg/dL N 8.6-10.3 Total Protein 6.9 g/dL N 6.4-8.9 Albumin 4.2 g/dL N 3.2-5.2 Globulin 2.7 g/dL N 2-4 Albumin/Globulin Ratio 1.6 N 1-3 Total Bilirubin 0.50 mg/dL N 0.2-1.0 Alkaline Phosphatase 79 U/L N 34-104 Alt 9 U/L N 7-52 Ast 12 U/L Low 13-39 Egfr Non- 98.0 N >60 Egfr 126.0 N >60 22 CBC Auto Diff 11/24/2015 [facility] White Blood 5.9 10^3/uL N 3.5-10.[address] [place] [address] [phone] Red Blood Count 4.26 10^6/uL N 4.0-5.4 Hemoglobin 11.7 g/dL Low 12.0-16.0 Hematocrit 36 % N 35-47 Mean Corpuscular Volume 83 fL N 80-97 Mean Corpuscular Hemoglobin 27 pg N 27-31 Mean Corpuscular HGB Conc 33 g/dL N 31-36 Red Cell Distribution Width 15 % N 10.5-15 Platelet Count 328 10^3/uL N 150-450 Mean Platelet Volume 7 um3 Low 7.4-10.4 Abs Neutrophils 3.6 10^3/uL N 1.5-7.7 Abs Lymphocytes 1.9 10^3/uL N 1.0-4.8 Abs Monocytes 0.3 10^3/uL N 0-0.8 Abs Eosinophils 0 10^3/uL N 0-0.6 Abs Basophils 0.1 10^3/uL N 0-0.2 Abs Nucleated RBC 0 10^3/uL N Granulocyte % 61.0 % N 38-83 Lymphocyte % 31.9 % N 25-47 Monocyte % 5.4 % N 1-9 Eosinophil % 0.8 % N 0-6 Basophil % 0.9 % N 0-2 Nucleated Red Blood Cells % 0.1 N Inr/Protime 11/24/2015 [facility] Inr 1.00 N 0.89-1.[address] [place] [address] [phone] Laboratory test 11/24/2015 [facility] HCG < 0.60 N [address] mIU/[place] [address] [phone] C Reactive Protein 26.54 mg/L High < 5.00 24 Liver Function 09/03/2015 [facility] Total Protein 6.7 g/dL N 6.4-8.[address] [place] [address] [phone] Albumin 4.2 g/dL N 3.2-5.2 Globulin 2.5 g/dL N 2-4 Albumin/Globulin Ratio 1.7 N 1-3 Total Bilirubin 0.60 mg/dL N 0.2-1.0 Direct Bilirubin 0.10 mg/dL N 0.03-0.18 Indirect Bilirubin 0.5 mg/dL N 0.3-1.0 Alkaline Phosphatase 74 U/L N 34-104 Alt 11 U/L N 7-52 Ast 13 U/L N 13-39 CBC Auto Diff 09/03/2015 [facility] White Blood 7.5 10^3/uL N 3.5-10.[address] [place] [address] [phone] Red Blood Count 4.51 10^6/uL N 4.0-5.4 Hemoglobin 12.2 g/dL N 12.0-16.0 Hematocrit 37 % N 35-47 Mean Corpuscular Volume 82 fL N 80-97 Mean Corpuscular Hemoglobin 27 pg N 27-31 Mean Corpuscular HGB Conc 33 g/dL N 31-36 Red Cell Distribution Width 15 % N 10.5-15 Platelet Count 342 10^3/uL N 150-450 Mean Platelet Volume 8 um3 N 7.4-10.4 Abs Neutrophils 5.4 10^3/uL N 1.5-7.7 Abs Lymphocytes 1.6 10^3/uL N 1.0-4.8 Abs Monocytes 0.3 10^3/uL N 0-0.8 Abs Eosinophils 0.1 10^3/uL N 0-0.6 Abs Basophils 0.1 10^3/uL N 0-0.2 Abs Nucleated RBC 0 10^3/uL N Granulocyte % 72.1 % N 38-83 Lymphocyte % 21.9 % Low 25-47 Monocyte % 4.3 % N 1-9 Eosinophil % 0.7 % N 0-6 Basophil % 1.0 % N 0-2 Nucleated Red Blood Cells % 0 N Laboratory test 01/06/2015 [facility] Vitamin D 20.7 ng/mL Low 30-[address] Total 25(Oh) [place], [place] [id number] [phone] Urine Culture And Sensitivities SEE RESULT BELOW 25 Urinalysis Profile 01/06/2015 [facility] Urine Color Yellow N [address] [place] [address] [phone] Urine Appearance Cloudy N Urine Specific [place] 1.030 N 1.010-1.030 Urine pH 6.0 N 5-9 Urine Urobilinogen Positive Abnormal Negative Urine Ketones Trace Abnormal Negative Urine Protein 1+(30 mg/dL) Abnormal Negative Urine Leukocytes Trace Abnormal Negative Urine Blood 1+ Abnormal Negative Urine Nitrite Negative N Negative Urine Bilirubin Negative N Negative Urine Glucose Negative N Negative Urine White Blood Cell Trace(0-5/hpf) N Absent Urine Red Blood Cell Trace(0-2/hpf) N Absent Urine Bacteria Absent N Absent Urine Squamous Epithelial Cell Present Abnormal Absent CBC Auto Diff 01/06/2015 [facility] White Blood 8.2 10^3/uL N 4.8-10.[address] [place] [address] [phone] Red Blood Count 4.45 10^6/uL N 4.0-5.4 Hemoglobin 13.0 g/dL N 12.0-16.0 Hematocrit 40 % N 35-47 Mean Corpuscular Volume 91 fL N 80-97 Mean Corpuscular Hemoglobin 29 pg N 27-31 Mean Corpuscular HGB Conc 32 g/dL N 31-36 Red Cell Distribution Width 13 % N 10.5-15 Platelet Count 425 10^3/uL N 150-450 Mean Platelet Volume 8 um3 N 7.4-10.4 Abs Neutrophils 5.6 10^3/uL N 1.5-7.7 Abs Lymphocytes 2.0 10^3/uL N 1.0-4.8 Abs Monocytes 0.4 10^3/uL N 0-0.8 Abs Eosinophils 0.1 10^3/uL N 0-0.6 Abs Basophils 0 10^3/uL N 0-0.2 Abs Nucleated RBC 0 10^3/uL N Granulocyte % 68.8 % N 38-83 Lymphocyte % 24.3 % Low 25-47 Monocyte % 5.3 % N 1-9 Eosinophil % 1.1 % N 0-6 Basophil % 0.5 % N 0-2 Nucleated Red Blood Cells % 0.1 N Comp Metabolic Panel 01/06/2015 [facility] Sodium 139 mmol/L N 133-[address] [place] [address] [phone] Potassium 4.4 mmol/L N 3.5-5.0 Chloride 103 mmol/L N 101-111 Co2 Carbon Dioxide 30 mmol/L N 22-32 Anion Gap 6 mmol/L N 2-11 Glucose 83 mg/dL N 70-100 Blood Urea Nitrogen 13 mg/dL N 6-24 Creatinine 0.76 mg/dL N 0.51-0.95 BUN/Creatinine Ratio 17.1 N 8-20 Calcium 9.6 mg/dL N 8.6-10.3 Total Protein 6.5 g/dL N 6.4-8.9 Albumin 4.1 g/dL N 3.2-5.2 Globulin 2.4 g/dL N 2-4 Albumin/Globulin Ratio 1.7 N 1-3 Total Bilirubin 0.40 mg/dL N 0.2-1.0 Alkaline Phosphatase 77 U/L N 34-104 Alt 14 U/L N 7-52 Ast 14 U/L N 13-39 Egfr Non- 87.6 N >60 Egfr 112.7 N >60 26 1 HYPERTROPHY OF BREAST 2 Because ethnic data is not always readily available, this report includes an eGFR for both -Americans and non- Americans. The National Kidney Disease Education Program (NKDEP) does not endorse the use of the MDRD equation for patients that are not between the ages of 18 and 70, are , have extremes of body size, muscle mass, or nutritional status, or are non- or non-. According to the National Kidney Foundation, irrespective of diagnosis, the stage of the disease is based on the level of kidney function: Stage Description GFR(mL/min/1.73 m(2)) 1 Kidney damage with normal or decreased GFR 90 2 Kidney damage with mild decrease in GFR 60-89 3 Moderate decrease in GFR 30-59 4 Severe decrease in GFR 15-29 5 Kidney failure <15 (or dialysis) 3 Would you like an EBV if Monospot is Negative?: N 4 FASTING 10 HOUR 5 FASTING 10 HOUR 6 FASTING 10 HOUR 7 AM 8.7-22.4 PM <10 8 Because ethnic data is not always readily available, this report includes an eGFR for both -Americans and non- Americans. The National Kidney Disease Education Program (NKDEP) does not endorse the use of the MDRD equation for patients that are not between the ages of 18 and 70, are , have extremes of body size, muscle mass, or nutritional status, or are non- or non-. According to the National Kidney Foundation, irrespective of diagnosis, the stage of the disease is based on the level of kidney function: Stage Description GFR(mL/min/1.73 m(2)) 1 Kidney damage with normal or decreased GFR 90 2 Kidney damage with mild decrease in GFR 60-89 3 Moderate decrease in GFR 30-59 4 Severe decrease in GFR 15-29 5 Kidney failure <15 (or dialysis) 9 Desirable <150 Borderline high 150-199 High 200-499 Very High >500 10 Desirable <200 Borderline high 200-239 High >239 11 Low <40 Desirable: 40-60 High: >60 12 Desirable: <100 mg/dL Near Optimal: 100-129 mg/dL Borderline High: 130-159 mg/dL High: 160-189 mg/dL Very High: >189 mg/dL 13 ADDITIONAL INFORMATION This test was developed and its performance characteristics determined by [facility] in a manner consistent with CLIA requirements. This test has not been cleared or approved by the U.S. Food and Drug Administration. Test Performed by: [facility] [place] [id number] ADDITIONAL INFORMATION This test was developed and its performance characteristics determined by [facility] in a manner consistent with CLIA requirements. This test has not been cleared or approved by the U.S. Food and Drug Administration. Test Performed by: [facility] - [address] [address] 15 Adults: Males: 18-36 mg/dL Females: 18-53 mg/dL Pediatrics: Males (mg/dL) Females (mg/dL) 0-30 Days 8-25 3-28 31 Days-11 Month 15-48 15-43 1-3 Years 25-56 29-54 4-6 Years 29-56 26-54 7-9 Years 25-52 23-48 10-12 Years 21-51 21-48 13-15 Years 20-50 21-46 16-18 Years 20-45 22-50 The pediatric ranges are derived from the following criteria: Inderjit WELSH, Maria Luisa PORTILLO, Eleanor Faye et al Pediatric reference ranges for Qztx-8-Hxhothxavmxto and ceruloplasmin. Clin. Chem 1997; 43:S1999 Pediatric Reference Ranges, 2nd., SF Inderjitet al. editors. [employer], [place], [place] 1997. Test Performed at: [facility], [address] [place] [address] Krish Mello MD, FCAP Test Performed by: [facility] [address] [place] [address] 16 FINAL DIAGNOSIS: Specimen Source: Flow cytometry immunophenotypic analysis: No immunophenotypic abnormalities detected. Interpretative data: Lymphocytes: B-cells: Percent of lymphocytes with no evidence of light chain restriction or other immunophenotypic abnormality. T-cells/NK cells: No aberrant population detected. Markers tested: CD3, CD5, CD7, CD10, CD19, CD20, CD23, CD45, kappa surface light chains, lambda surface light chains, 7-AAD. Quality Assessment: Acceptable Viability: Acceptable Viable lymphocytes (7-AAD): 98% Specimen received within validated guidelines. A Ling-Giemsa stained slide prepared from the flow cytometry specimen was examined for quality purposes. Electronically signed by: Sudarshan Rojas MD 01/12/17 1535 Technical component performed by: [place] [address] [employer] Machine Tender: Allen Barbour II, MD, PhD. 17 FINAL DIAGNOSIS: Specimen Source: Flow cytometry immunophenotypic analysis: No immunophenotypic abnormalities detected. Interpretative data: Lymphocytes: B-cells: Percent of lymphocytes with no evidence of light chain restriction or other immunophenotypic abnormality. T-cells/NK cells: No aberrant population detected. Markers tested: CD3, CD5, CD7, CD10, CD19, CD20, CD23, CD45, kappa surface light chains, lambda surface light chains, 7-AAD. Quality Assessment: Acceptable Viability: Acceptable Viable lymphocytes (7-AAD): 98% Specimen received within validated guidelines. A Ling-Giemsa stained slide prepared from the flow cytometry specimen was examined for quality purposes. Electronically signed by: Sudarshan Rojas MD 01/12/17 1535 Technical component performed by: [address] [address] [employer] Tender: Allen Barbour II, MD, PhD. 18 [id number] 19 SEE RESULT BELOW Name: SHANI WHITNEY : [address]: Akhil Snow NP Acct: [id number] Unit: [id number] AGE: 36 Location: [facility] Re11/10/16 SEX: F Status: REG REF SPEC: [id number] AMY: 11/10/16-[address]: Akhil Snow NP REQ: [id number] RECD: 11/10/16 STATUS: RES _ SOURCE: URINE SPDESC: ORDERED: Urine Culture COMMENTS: [id number] Urine Source: Random Procedure Result Reported Site Urine Culture Preliminary 11/11/16- 141 ML Organism 1 ENTEROBACTER CLOACAE [place] Count >100,000 (Many) CFU/ML * ML - [facility] ([facility]) . END OF REPORT * ML=Testing performed at Main Lab DEPARTMENT OF PATHOLOGY, [address] [place] [address] Sudarshan Rojas M.D. Director [facility] # [id number] 20 TEST PROCEDURE TEST RESULTS STRATIFY JCV(TM) AB WITH REFLEX TO INHIBITION ASSAY JCV Antibody FINAL RSLT: POSITIVE INTERPRETATION: Indeterminate: Low level reactivity detected, see Inhibition Assay result to follow for the final antibody result. Positive: Antibodies to FELIPE virus (JCV) detected indicating the patient has been exposed to JCV at an undetermined time. Negative: Antibodies to JCV not detected. The STRATIFY JCV Antibody Test is an enzyme-linked immunoabsorbent assay (LUIS) designed to detect JCV antibodies to help identify individuals who have been exposed to the virus. Samples with low level reactivity in the detection assay are retested in a confirmation (inhibition) assay to confirm presence or absence of JCV-specific antibodies. The analytical performance characteristics of this assay have been determined by [employer]. The modifications have not been cleared or approved by the FDA. This assay has been validated pursuant to the CLIA regulations and is used for clinical purposes. Test performed at: [facility] [facility] [address] [place] [address] Director: Rodolfo Vee MD 21 Recommend repeat testing in 6 months if clinical suspicion is high. Negative result can occur in the setting of immunosuppression. Test Performed by: [address] [address] [employer] Tender: Allen Barbour II, M.D., Ph.D. 22 Because ethnic data is not always readily available, this report includes an eGFR for both -Americans and non- Americans. The National Kidney Disease Education Program (NKDEP) does not endorse the use of the MDRD equation for patients that are not between the ages of 18 and 70, are , have extremes of body size, muscle mass, or nutritional status, or are non- or non-. According to the National Kidney Foundation, irrespective of diagnosis, the stage of the disease is based on the level of kidney function: Stage Description GFR(mL/min/1.73 m(2)) 1 Kidney damage with normal or decreased GFR 90 2 Kidney damage with mild decrease in GFR 60-89 3 Moderate decrease in GFR 30-59 4 Severe decrease in GFR 15-29 5 Kidney failure <15 (or dialysis) 23 <5.0 Negative 5.0 - 25.0 Indeterminate (Repeat testing recommended after 72 hours) >25.0 Positive Perimenopausal women can display HCG levels of up to 20 mIU/mL 24 Acute inflammation: >10.00 25 SEE RESULT BELOW Name: SHANI WHITNEY : [address]: Sheeba Soto MD Acct: [id number] Unit: [id number] AGE: 35 Location: LAB Re01/06/15 SEX: F Status: REG REF SPEC: [id number] AMY: 01/06/15-105[facility] DR: Sheeba Soto MD REQ: [id number] RECD: 01/06/15-1244 STATUS: [facility] DR: Malvin Fried MD _ SOURCE: URINE [facility]: ORDERED: Urine Culture Procedure Result Verified Site Urine Culture Final 01/08/15- 1051 ML No Growth Day 2 (<1,000 CFU/mL) * ML - MAIN LAB ([facility]) . END OF REPORT * ML=Testing performed at Main Lab DEPARTMENT OF PATHOLOGY, [address] [place] [address] Sudarshan Rojas M.D. Director [facility] # [id number] 26 Because ethnic data is not always readily available, this report includes an eGFR for both -Americans and non- Americans. The National Kidney Disease Education Program (NKDEP) does not endorse the use of the MDRD equation for patients that are not between the ages of 18 and 70, are , have extremes of body size, muscle mass, or nutritional status, or are non- or non-. According to the National Kidney Foundation, irrespective of diagnosis, the stage of the disease is based on the level of kidney function: Stage Description GFR(mL/min/1.73 m(2)) 1 Kidney damage with normal or decreased GFR 90 2 Kidney damage with mild decrease in GFR 60-89 3 Moderate decrease in GFR 30-59 4 Severe decrease in GFR 15-29 5 Kidney failure <15 (or dialysis) Procedures Date Code Description Status 06/12/2018 90835 EKG Tracing & Interpretation Completed 08/24/2016 [id number] Diabetic Retinal Eye Exam Completed 12/17/2015 [id number] Diabetic Retinal Eye Exam Completed 12/02/2015 [id number] Diabetic Retinal Eye Exam Completed 07/13/2013 20302 Rad Exam; Hip Unilat Comp Completed 07/13/2013 93243 Rad Exam; Pelvis Completed 01/16/2010 35949 Rad Exam; Knee Comp Completed Encounters Type Date Location Provider Dx Diagnosis Office Visit 06/12/2018 [facility] Internal Brad Meza Z01.818 Encounter for other 11:20a Trung Wilson M.D.,FACP preprocedural Rd examination N62 Hypertrophy of breast G35 Multiple sclerosis E03.9 Hypothyroidism, unspecified E55.9 Vitamin D deficiency, unspecified Z68.43 Body mass index (BMI) 50-59.9, adult Office Visit 03/24/2018 11:00a [facility]ie [facility] Vijay sclerosis 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 Office Visit 03/15/2018 10:00a [facility]hospital[facility] M.Susana sclerosis G43.709 Chronic migraine w/o aura, not intractable, w/o stat migr H53.8 Other visual disturbances R53.83 Other fatigue R29.6 Repeated falls R53.1 Weakness Office Visit 03/03/2018 [facility] Internal Brad Meza J45.41 Moderate 3:00p Trung Wilson M.D.,FACP persistent asthma Rd with (acute) exacerbation Office Visit 11/09/2017 Edie Harper Multiple sclerosis 11:30a Neurologic MLalitha Services Of [facility] G43.709 Chronic migraine w/o aura, not intractable, w/o stat migr R29.6 Repeated falls 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 Office Visit 08/16/2017 8:10a [facility] Internal Brad Meza S22.31xA Fracture of Trung Wilson M.D.,FACP one rib, right May side, init for clos fx Z23 Encounter for immunization Office Visit 05/11/2017 11:00a [facility] Sheeba Soto, G35 Multiple [facility] Vijay sclerosis 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 G43.709 Chronic migraine w/o aura, not intractable, w/o stat migr 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 Office Visit 04/05/2017 11:30a [facility] Internal Brad Meza J20.9 Acute bronchitis, Trung Wilson M.D.,FACP unspecified May Office Visit 01/26/2017 11:40a [facility] Internal Luis Trujillo, [employer] J02.9 Acute Medicine - pharyngitis, May unspecified Office Visit 12/01/2016 1:30p [facility] Sheeba Soto, G35 Multiple [facility] Vijay sclerosis R29.6 Repeated falls R59.0 Localized enlarged lymph nodes Office Visit 11/10/2016 1:40p [facility] Internal Akhil Snow, N39.0 Urinary tract Medicine - [place] POUL[employer] BONER infection, site Rd not specified R30.0 Dysuria Z00.00 Encntr for general adult medical exam w/o abnormal findings R63.5 Abnormal weight gain Z13.1 Encounter for screening for diabetes mellitus Z13.220 Encounter for screening for lipoid disorders Z23 Encounter for immunization Office Visit 11/01/2016 [facility] Sheeba Soto, S93.402A Sprain of 11:30a Neurologic Vijay unspecified Services [facility] ligament of left ankle, init encntr G35 Multiple sclerosis R29.6 Repeated falls G43.919 Migraine, unsp, intractable, without status migrainosus E55.9 Vitamin D deficiency, unspecified M62.81 Muscle weakness (generalized) Office Visit 10/29/2016 10:00a Orthopedic Chase S93.402A Sprain of Services Of Vijay Sweet unspecified C.M.A. ligament of left ankle, init encntr Office Visit 08/05/2016 11:00a [place] Sheeba Irizarry Multiple Neurologic Vijay Soto sclerosis Services Of [facility] H53.8 Other visual disturbances Office Visit 07/15/2016 10:30a [facility] Edie Bush [facility] Vijay sclerosis G43.919 Migraine, unsp, intractable, without status migrainosus R29.6 Repeated falls H53.8 Other visual disturbances E55.9 Vitamin D deficiency, unspecified Office Visit 03/08/2016 3:15p [facility] Edie Bush [facility] Vijay sclerosis 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, right eye R29.6 Repeated falls G95.0 Syringomyelia and syringobulbia G43.919 Migraine, unsp, intractable, without status migrainosus Office Visit 03/02/2016 9:00a [facility] Edie Mahoney [facility] sclerosis 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, right eye Office Visit 12/08/2015 Neurohospitalist Sheeba Soto H46.8 Other optic 9:30a Clinic MLalitha neuritis G35 Multiple sclerosis G95.0 Syringomyelia and syringobulbia R29.6 Repeated falls R53.1 Weakness Office Visit 11/24/2015 Neurohospitalist Leighann 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 Sclerosis 346.02 Migraine W/Aura,W/Out Mention Of Intractable Migraine 782.0 Skin Sensation Disturbance 728.85 Spasm Muscle Office Visit 08/17/2013 10:15a Orthopedic Mary Aragon, 724.5 Backache Unspec Services Of C.M.A. M.D. 719.45 Pain Joint Pelvic Region & Thigh Office Visit 07/13/2013 2:45p Orthopedic Services Mary Aragon, 719.45 Pain Joint Of C.M.A. M.D. Pelvic Region & Thigh 724.5 Backache Unspec 733.49 Aseptic Necrosis Bone Other Office Visit 03/04/2010 1:00p Orthopedic Tarah, 844.9 Sprains & Services Of Lamin Qureshi Knee C.M.A. R.S.A.-O & Leg Unspec Office Visit 02/18/2010 1:00p Orthopedic Tarah 844.9 Sprains & Services Of Lamin Qureshi Knee C.M.A. R.S.A.-O & Leg Unspec Office Visit 01/28/2010 2:15p Orthopedic Tarah 844.9 Sprains & Services Of Lamin Qureshi Knee C.M.A. R.S.A.-O & Leg Unspec Office Visit 01/16/2010 2:00p Orthopedic Rut Chacon PA 844.9 Sprains & Services Of Strains Knee C.M.A. & Leg Unspec 836.0 Dislocation Knee Tear Of Medial Cartilage Or Meniscus Caleb Plan of Treatment Future Appointment(s):10/27/2018 3:00 pm - Sheeba Soto M.D. at [facility]08/03/2018 - Alondra Fisher MDJ01.90 Acute sinusitis, unspecifiedNew Medication:Doxycycline Hyclate 100 mg - 1 cap twice a day for 10 daysFlonase Allergy Relief 50 mcg/Act - 2 sprays in each nostril twice a day for one weekComments:Take Mucinex-D, do saline rinsing with neti pot, drink lots of fluidsReferral:Ric Albarran MD, Otolaryngology
[2018-08-29] MEDS ORDERED: Ciprofloxacin TAB* 500 MG PO ONE (12:05)
[2018-08-29] MEDS ORDERED: DOXYcycline CAP(*) 100 MG PO ONE (12:05)
--- NOTE | 2018-08-29 12:16 | UC ---
Skin Complaint HPI - HPI Summary HPI Summary: Patient is a 38-year-old female with hx of bilateral breast reduction on presenting with left wound dehiscence near the areola. Patient noticed the wound opening last evening as it began to drain green/white purulent material in her bra. Also noted pain with warmth and redness at this time. Patient noted pain after son had jumped on her breast yesterday, did not notice redness or discharge prior to this event. Has taken tylenol for relief. Admits to intermittent fevers and diarrhea earlier this week, at times 101-102, mostly in the evening. Denies SOB, palpitations, dizziness, fatigue, or chest pain. Breast reduction performed by Dr. Rodríguez, who has been notified of wound opening.Patient has hx of MS and MRSA on her back. Denies hx of diabetes. - History of Current Complaint Chief Complaint: EDFever Time Seen by Provider: 08/29/18 11:33 Stated Complaint: POSSIBLE INFECTIONS Hx Obtained From: Patient Hx Last Menstrual Period: 01/20/17 Onset/Duration: Sudden Onset Skin Exposure Onset/Duration: Hours Ago Onset Severity: Moderate Current Severity: Moderate Pain Intensity: 6 Pain Scale Used: 0-10 Numeric Location: Diffuse - lower left breast and areolar region Character: Pain, Redness Alleviating Factor(s): OTC Meds - tylenol Associated Signs & Symptoms: Positive: Drainage, Tenderness Related History: Trauma - Allergy/Home Medications Allergies/Adverse Reactions: Allergies Allergy/AdvReac Type Severity Reaction Status Date / Time Latex, Natural Rubber Allergy Hives Verified 08/29/18 11:31 nitrofurantoin Allergy Hives/Diff. Verified 08/29/18 11:31 [From Macrobid] Breathing/I tching Tree Nuts Allergy Rash Verified 08/29/18 11:31 Home Medications: Home Medications Ibuprofen TAB* [Motrin TAB* 800 MG] 800 mg PO Q6H PRN 08/29/18 [History Confirmed 08/29/18] Propranolol TAB* [Inderal TAB*] 80 mg PO QPM 08/29/18 [History Confirmed ] Rizatriptan ODT (NF) [Maxalt-TUFTER (NF)] 5 mg PO DAILY PRN 08/29/18 [History Confirmed 08/29/18] Solifenacin(NF) [Vesicare(NF)] 10 mg PO QPM 08/29/18 [History Confirmed 08/29/18 ] lamoTRIgine TAB(*) [LaMICtal TAB(*)] 150 mg PO BEDTIME 08/29/18 [History Confirmed 08/29/18] tiZANidine TAB* [Zanaflex TAB*] 4 mg PO QPM 08/29/18 [History Confirmed 08/29/18 ] PMH/Surg Hx/FS Hx/Imm Hx Previously Healthy: Yes Neurological History: Other - Multiple sclerosis - Surgical History Surgical History: Yes Surgery Procedure, Year, and Place: LT HIP - A BABY -. TONSILECTOMY. C SECTION 11/06. LAMINECTOMY -LSP TUMOR REMOVED 01/2015. LSP BACTERIAL WASHOUT - Family History Known Family History: Positive: None Negative: Cardiac Disease, Hypertension, Diabetes - Social History Alcohol Use: Rare Alcohol Amount: 1 per month Substance Use Type: None Smoking Status (MU): Never Smoked Tobacco Have You Smoked in the Last Year: No Review of Systems All Other Systems Reviewed And Are Negative: Yes Constitutional: Positive: Fever - intermittent for the past week, at times 101- 102, mostly in the evening, Chills Skin: Positive: Other - left wound dehiscance at lateral areola with pain, redness, heat Eyes: Positive: Negative ENT: Positive: Negative Respiratory: Positive: Negative Cardiovascular: Positive: Negative Gastrointestinal: Positive: Negative Genitourinary: Positive: Negative Neurovascular: Positive: Decreased Sensation - diminished sensation in bilateral LE due to MS Musculoskeletal: Positive: Negative Neurological: Positive: Negative Is Patient Immunocompromised?: Yes - MS Physical Exam Triage Information Reviewed: Yes Appearance: Well-Appearing, Pain Distress, Obese Vital Signs: Initial Vital Signs Temp 97.9 F 08/29/18 11:28 Pulse 84 08/29/18 11:28 Resp 16 08/29/18 11:28 BP 131/71 08/29/18 11:28 Pulse Ox 96 08/29/18 11:28 ENT: Positive: Normal ENT inspection, Hearing grossly normal Neck: Positive: Supple, Nontender, No Lymphadenopathy Respiratory: Positive: Chest non-tender, Lungs clear, Normal breath sounds Cardiovascular: Positive: RRR, No Murmur, Pulses Normal Abdominal Exam: Normal Abdomen Description: Positive: Nontender, Soft Bowel Sounds: Positive: Present Musculoskeletal Exam: Normal Musculoskeletal: Positive: Strength Intact Neurological: Positive: Alert Skin: Positive: Significant Lesion(s) - left lateral areola with approx. 1 cm x 0.75 cm ulceration with scant blood and purulent drainage., Other - Area of erythema to the lower left breast approximately the size of hand Course/Dx - Course Course Of Treatment: Nurse's note reviewed. Patient presented to the ED with left breast wound dehiscance following breast reduction on 06/27/2018. Open lesion presented near the left lateral areola with discharge, pain, heat, and redness noted last evening. Patient notes probable trauma to the area yesterday. Approximately 1 cm x 0.75 cm open lesion with scant blood and purulent drainage noted on exam with large region of erythema to the left lower breast. Patient is afebrile upon arrival to the ed without signs of sepsis. Dr. Rodríguez was present and consulted during physical exam. Wound cultures pending. Discussed with patient outpatient antibiotic treatment with ciprofloxacin and doxycyclin, and promt follow-up tomorrow with Dr. Rodríguez to monitor improvement. Will tailor antibiotic treatment as necessary when wound cultures are returned. - Differential Diagnoses - Skin Complaint Differential Diagnoses: Abscess, Cellulitis, Other - wound dehiscance - Diagnoses Provider Diagnosis: Wound dehiscence, Mastitis Discharge - Sign-Out/Discharge Documenting (check all that apply): Patient Departure Patient Received Moderate/Deep Sedation with Procedure: No - Discharge Plan Condition: Stable Disposition: HOME Prescriptions: Ciprofloxacin TAB* [Cipro 500 MG TAB*] 500 mg PO BID #14 tab Patient Education Materials: Wound Dehiscence (ED) Referrals: Alondra Fisher MD [Primary Care Provider] - Additional Instructions: Please follow up with Dr. Rodríguez Call office to make an appt Ciprofloxacin for wound If you receive a phone call this afternoon - it will mean this is MRSA positive and you will need to be placed on doxycycline as well Silvadene over the wound - Billing Disposition and Condition Condition: STABLE Disposition: Home
[2018-08-29] MEDS ORDERED: Silver Sulfadiazine 1%* 20 GM TOPICAL ONE (12:40)
[2018-08-29 13:33] VITALS: BP 118/79
== END 2018-08-29 13:45 | disposition home or self-care (01) ==
LOC: ED 11:20
DX: T81.31XA Disruption of external operation (surgical) wound, not elsewhere classified, initial encounter (principal); R50.9 Fever, unspecified; N61.0 Mastitis without abscess; Z98.86 Personal history of breast implant removal
CPT/HCPCS: 87070; 87205; 99283; A9270-GY

== ENCOUNTER 2019-09-03 10:51 | Inpatient (IN) | payer MEDICARE, MEDICAID ==
[2019-09-03] MEDS ORDERED: Morphine INJ* 10 MG/ML 1 ML CARPUJECT IV ONE (11:26)
--- OUTSIDE RECORDS SUMMARY | 2019-09-03 11:49 | XMS REPORT | Continuity of Care Document ---
:1980 External Reference #:[id number] Author Name Luis Trujillo NP (transmitted by agent of provider Kayleigh Goodwin) Address [address], [address] [place] [id number] Care Team Providers Name Role Phone [facility] - Care Team Information Pals Nurse Clinic/Center Sergio Angeles M.D. - Neurology Care Team Information Pals Nurse Jessica Delong MD - Psychiatry Care Team Information Pals Nurse Alondra Fisher M.D. - Family Medicine Care Team Information Pals Nurse [phone] Sheeba Soto MD - Neurology Care Team Information Pals Nurse [phone] Problems Active Problems Provider Date Neurogenic bowel Ashok Avila MD Onset: 02/16/2015 Note: ever since her back surgery numbness and tingling from the waist down and less sensation of defecation; straight caths 5 to 7 times a day (has not needed antibiotics since methenamine) Relapsing remitting multiple sclerosis Sheeba Soto M.D. Onset: 01/06/2015 Chronic retention of urine Sheeba Soto M.D. Onset: 01/06/2015 Note: straight caths 7x a day; many infections until methenamine per Dr Hull Migraine with aura Sheeba Soto M.D. Onset: 01/06/2015 Depressive disorder Sheeba Soto M.D. 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 Acute retrobulbar neuritis Leighann Villar MD Onset: 03/02/2016 Posttraumatic stress disorder Akhil Snow NP Onset: 11/10/2016 Note: has seen Dr Dozier for depression and PTSD since 2017 Anxiety Akhil Snow NP Onset: 11/10/2016 Decreased cortisol level Brad Wilson M.D.,FACP Onset: 04/05/2017 Note: borderline low AM cortisol Body mass index 40+ - severely obese Brad Wilson M.D.,FACP Onset: Social History Type Date Description Comments Sex Unknown Tobacco Use Start: Unknown Never Smoked Cigarettes Smoking Status Reviewed: 07/16/19 Never Smoked Cigarettes ETOH Use 06/12/2018 Denies alcohol use Recreational Drug Use Denies Drug Use Tobacco Use Start: Unknown Patient has never smoked Exercise Type/Frequency Exercises sporadically 30 minute walk daily and physical therapy exercises Allergies, Adverse Reactions, Alerts Active Allergies Reaction Severity Comments Date Latex Rash Severe 01/06/2015 Macrobid Allergic asthma, Urticaria Severe 03/03/2018 Tape 08/25/2018 Ciprofloxacin 08/25/2018 Inactive Allergies NKDA 11/10/2016 Medications Active Medications SIG Qnty Indications Ordering Date Provider Levofloxacin one by mouth daily 10tabs J18.9 Luis Trujillo NP 07/16/2019 500mg for 10 days Tablets Guaifenesin-Codeine 5-10 milliliters 237ml J18.9 Luis Trujillo NP 07/16/2019 every 6 hours as 100-10mg/5ML needed Solution Propranolol HCL ER 1 by mouth every 90caps G43.919 Sheeba Soto, 2018 night at bedtime M.D. 120mg Caps ER 24HR Ferrous Sulfate one by mouth once a 30tabs Alondra Fisher MD 04/24/2019 day, with food and 325mg Tablets vitamin c tablet at same time Fibercon one to two tablets 60tabs Ashok Hernandez 03/22/2019 625mg daily MD [place] Tablets Miralax 17 grams by mouth 200GMS Ashok Hernandez 03/22/2019 Powder every day as needed - MD [place] 1 capful every other day as needed Oxycodone HCL 1/2-1 tab by mouth 60tabs G89.4 Alondra Fisher MD 12/13/2018 10mg every 6 hours as Tablets needed for pain Methenamine take 1 tablet by 180tabs Z87.440 Tony Meza 10/18/2018 Hippurate mouth twice a day Vijay Hull 1gm Tablets Flonase Allergy 2 sprays in each 9.900ml J01.90 Alondra Fisher MD 08/03/2018 Relief nostril twice a day 50mcg/Act for one week Suspension Rebif administer 1 18ml Sheeba Soto, 04/26/2018 44mcg/0.5ML injection M.DShanon Soln Prefill subcutaneously three Syringe times a week Flovent HFA Take 2 Puffs By Mouth 12units Selena Phillips MD 03/03/2018 Twice A Day 110mcg/Act Aerosol Ventolin HFA 2 puffs by mouth four 54gm Brad Meza 03/03/2018 times a day as needed Vijay Wilson,FACP 108(90Base) mcg/Act Aerosol Ondansetron dissolve one tablet 60tabs J02.9 Sheeba Soto, 01/26/2017 4mg orally every 8 hours M.D. Tablets Dispers as needed for nausea. Rollator with 4 wheels, 1units G35 Sheeba Soto, 12/08/2015 [facility] brakes, basket and M.D. seat. dx repeat falls, multiple sclerosis, leg weakness Maxalt take 1 by mouth as 12tabs G43.101 Sheeba Soto, 02/07/2015 10mg Tablets needed migraine, may M.D. repeat after 2 hours; maximum 2 in 24 hours, max: 2 days a week Myrbetriq Take 1 Tablet By Unknown 25mg Mouth Every Day Tablets ER 24HR Trazodone HCL at bedtime Unknown 100mg Tablets Zinc 1 qd Unknown 50mg Tablets Liothyronine Sodium 1 in am Unknown 25mcg Tablets Vesicare 1 daily Unknown 10mg Tablets Vitamin D 1 by mouth every day Unknown 5000Units Tablets Omeprazole 1 by mouth daily Unknown 20mg Capsules DR Wellbutrin XL 1 by mouth every day Unknown 300mg Tablets ER 24HR Cymbalta 1 by mouth every day Unknown 60mg Caps DR Breann Minipress 2 cap po qhs Unknown 2mg Capsules Lamictal 1 by mouth every day Unknown 150mg Tablets Vitamin B12 1 tab po daily Unknown Tab Calcium 1 cap po daily Unknown Carbonate/Vitamin D Capsule Folic Acid 1 by mouth every day Unknown 1mg Tablets Tizanidine HCL take 1 by mouth every 90tabs Sheeba Soto, 4mg night at bedtime M.D. Tablets Ibuprofen 2 caps po bid prn Unknown 200mg Cap History Medications Solu-Medrol in 100 milliliters 3units H46.8 Sheeba Soto, 04/18/2019 - 1000mg normal saline iv, M.D. 05/22/2019 Solution Rec at 100ml/hour; every day for three days dx code g 35 Immunizations CPT Code Status Date Vaccine Reaction Lot # [id number] Given 05/03/2019 Influenza Virus Vaccine, Quadrivalent, Split, Im Use [id number] Given 05/15/2018 Influenza Virus Vaccine, Quadrivalent, Split, Preservative Free [id number] Given 08/16/2017 Influenza Virus Vaccine, [id number] Quadrivalent, Split, Preservative Free [id number] Given 11/10/2016 Measles Mumps And Rubella patient tolerated [id number] MMR injection w/ no complaint of pain and no immediate adverse effect Vital Signs Date Vital Result Comment 07/16/2019 4:13pm Height 70 inches 5'10" Weight 368.38 lb Heart Rate 91 /min BP Systolic 118 mmHg BP Diastolic 76 mmHg Body Temperature 97.6 F O2 % BldC Oximetry 95 % BMI (Body Mass Index) 52.9 kg/m2 06/12/2019 9:37am Height 70 inches 5'10" Weight 375.00 lb Heart Rate 79 /min BP Systolic Sitting 133 mmHg Lue lg cuff BP Diastolic Sitting 88 mmHg Lue lg cuff O2 % BldC Oximetry 97 % BMI (Body Mass Index) 53.8 kg/m2 Results Test Acquired Date Facility Test Result H/L Range Note CBC Auto 06/12/2019 [facility] White Blood 6.4 10^3/uL Normal 3.5-10.[address] [place] [address] [phone] Red Blood Count 4.66 10^6/uL Normal 3.70-4.87 Hemoglobin 12.1 g/dL Normal 12.0-16.0 Hematocrit 38 % Normal 35-47 Mean Corpuscular Volume 81 fL Normal 80-97 Mean Corpuscular Hemoglobin 26 pg Low 27-31 Mean Corpuscular HGB Conc 32 g/dL Normal 31-36 Red Cell Distribution Width 16 % High 10-15 Platelet Count 393 10^3/uL Normal 150-450 Mean Platelet Volume 7.6 fL Normal 7.4-10.4 Abs Neutrophils 3.7 10^3/uL Normal 1.5-7.7 Abs Lymphocytes 1.9 10^3/uL Normal 1.0-4.8 Abs Monocytes 0.5 10^3/uL Normal 0-0.8 Abs Eosinophils 0.2 10^3/uL Normal 0-0.6 Abs Basophils 0.1 10^3/uL Normal 0-0.2 Abs Nucleated RBC 0.0 10^3/uL Granulocyte % 58.8 % Lymphocyte % 30.2 % Monocyte % 7.5 % Eosinophil % 2.4 % Basophil % 1.1 % Nucleated Red Blood Cells % 0.1 Laboratory 06/12/2019 [facility] TSH (Thyroid 2.90 Normal 0.34 -5.60 test finding [address] Stim Horm) mcIU/mL [place], [place] [id number] [phone] Free T4 (Free Thyroxine) 0.97 ng/dL Normal 0.61-1.12 Vitamin B12 06/12/2019 [facility] Vitamin B12 511 pg/mL Normal 180-914 [address] Folate [address] [place] [address] [phone] Folic Acid (Folate) > 20.00 ng/mL >3.99 Iron & Iron Binding 06/12/2019 [facility] Iron 35 g/dL Low 50-[address] [place] [address] [phone] Unsaturated Iron Binding < 457 g/dL Total Iron Binding Capacity 472 g/dL High 250-450 % Iron Saturation 7 % Low 15-55 Laboratory test 06/12/2019 [facility] Ferritin 35.6 ng/mL Normal 11-[address] [place] [address] [phone] Transferrin 337 mg/dL Normal 203-362 CBC Auto 04/18/2019 [facility] White Blood 6.5 10^3/uL Normal 3.5-10.[address] [place] [address] [phone] Red Blood Count 4.50 10^6/uL Normal 3.70-4.87 Hemoglobin 11.7 g/dL Low 12.0-16.0 Hematocrit 36 % Normal 35-47 Mean Corpuscular Volume 79 fL Low 80-97 Mean Corpuscular Hemoglobin 26 pg Low 27-31 Mean Corpuscular HGB Conc 33 g/dL Normal 31-36 Red Cell Distribution Width 16 % High 10-15 Platelet Count 356 10^3/uL Normal 150-450 Mean Platelet Volume 7.4 fL Normal 7.4-10.4 Abs Neutrophils 4.4 10^3/uL Normal 1.5-7.7 Abs Lymphocytes 1.4 10^3/uL Normal 1.0-4.8 Abs Monocytes 0.6 10^3/uL Normal 0-0.8 Abs Eosinophils 0.2 10^3/uL Normal 0-0.6 Abs Basophils 0.1 10^3/uL Normal 0-0.2 Abs Nucleated RBC 0.0 10^3/uL Granulocyte % 67.1 % Lymphocyte % 21.0 % Monocyte % 8.5 % Eosinophil % 2.4 % Basophil % 1.0 % Nucleated Red Blood Cells % 0.0 Comp Metabolic 04/18/2019 [facility] Sodium 138 mmol/L Normal 135-[address] [place] [address] [phone] Potassium 4.3 mmol/L Normal 3.5-5.0 Chloride 104 mmol/L Normal 101-111 Co2 Carbon Dioxide 29 mmol/L Normal 22-32 Anion Gap 5 mmol/L Normal 2-11 Glucose 93 mg/dL Normal 70-100 Blood Urea Nitrogen 14 mg/dL Normal 6-24 Creatinine 0.66 mg/dL Normal 0.51-0.95 BUN/Creatinine Ratio 21.2 High 8-20 Calcium 9.1 mg/dL Normal 8.6-10.3 Total Protein 6.7 g/dL Normal 6.4-8.9 Albumin 3.8 g/dL Normal 3.2-5.2 Globulin 2.9 g/dL Normal 2-4 Albumin/Globulin Ratio 1.3 Normal 1-3 Total Bilirubin 0.30 mg/dL Normal 0.2-1.0 Alkaline Phosphatase 95 U/L Normal 34-104 Alt 14 U/L Normal 7-52 Ast 15 U/L Normal 13-39 Egfr Non- 100.8 >60 Egfr 121.9 >60 2 Lipid Profile 02/20/2019 [facility] Triglycerides 67 mg/dL 3, 4 (Trig/Chol/HDL) [address] [place] [address] [phone] Cholesterol 168 mg/dL 5 HDL Cholesterol 49.8 mg/dL 6 LDL Cholesterol 105 mg/dL 7 Laboratory test 02/20/2019 [facility] Glucose 85 mg/dL Normal 70-100 [address] [place] [address] [phone] Thyroid Panel 02/20/2019 [facility] Free T4 0.58 Low 0.61- 1.[address] (Free ng/[place] [address] Thyroxine) [phone] Thyroxine 5.88 g/dL Low 6.09-12.23 10 TSH (Thyroid Stim Horm) 0.91 mcIU/mL Normal 0.34-5.60 11 CBC Auto 02/20/2019 [facility] White Blood 8.3 10^3/uL Normal 3.5-10.[address] [place] [address] [phone] Red Blood Count 4.74 10^6/uL Normal 3.70-4.87 Hemoglobin 12.1 g/dL Normal 12.0-16.0 Hematocrit 37 % Normal 35-47 Mean Corpuscular Volume 78 fL Low 80-97 Mean Corpuscular Hemoglobin 26 pg Low 27-31 Mean Corpuscular HGB Conc 33 g/dL Normal 31-36 Red Cell Distribution Width 17 % High 10-15 Platelet Count 394 10^3/uL Normal 150-450 Mean Platelet Volume 7.4 fL Normal 7.4-10.4 Abs Neutrophils 5.2 10^3/uL Normal 1.5-7.7 Abs Lymphocytes 2.3 10^3/uL Normal 1.0-4.8 Abs Monocytes 0.6 10^3/uL Normal 0-0.8 Abs Eosinophils 0.1 10^3/uL Normal 0-0.6 Abs Basophils 0.0 10^3/uL Normal 0-0.2 Abs Nucleated RBC 0.0 10^3/uL Granulocyte % 62.3 % Lymphocyte % 27.9 % Monocyte % 7.8 % Eosinophil % 1.5 % Basophil % 0.5 % Nucleated Red Blood Cells % 0.0 Comp Metabolic 02/20/2019 [facility] Sodium 139 mmol/L Normal 135-[address] [place] [address] [phone] Potassium 4.5 mmol/L Normal 3.5-5.0 Chloride 104 mmol/L Normal 101-111 Co2 Carbon Dioxide 27 mmol/L Normal 22-32 Anion Gap 8 mmol/L Normal 2-11 Glucose 84 mg/dL Normal 70-100 Blood Urea Nitrogen 12 mg/dL Normal 6-24 Creatinine 0.70 mg/dL Normal 0.51-0.95 BUN/Creatinine Ratio 17.1 Normal 8-20 Calcium 9.5 mg/dL Normal 8.6-10.3 Total Protein 6.6 g/dL Normal 6.4-8.9 Albumin 4.1 g/dL Normal 3.2-5.2 Globulin 2.5 g/dL Normal 2-4 Albumin/Globulin Ratio 1.6 Normal 1-3 Total Bilirubin 0.50 mg/dL Normal 0.2-1.0 Alkaline Phosphatase 95 U/L Normal 34-104 Alt 15 U/L Normal 7-52 Ast 15 U/L Normal 13-39 Egfr Non- 94.2 >60 Egfr 113.9 >60 12 Varicella 02/20/2019 [facility] Varicella-Zoster IgG Positive 13 Zoster Igg AB [address] [place] [address] [phone] Varicella IgG Antibody Index 2.1 14 1 Normal Range 180 to 914 Indeterminate Range 145 to 180 Deficient Range <145 2 Because ethnic data is not always [...] 5 Kidney failure <15 (or dialysis) 3 FASTING 10 HOUR 4 Desirable: <150 Borderline High: 150-199 High: 200-499 Very High: >500 5 Desirable: <200 Borderline High: 200-239 High: >239 6 Low: <40 Desirable: 40-60 High: >60 7 Desirable: <100 Near Optimal: 100-129 Borderline High: 130-159 High: 160-189 Very High: >189 8 FASTING 10 HOUR 9 FASTING 10 HOUR 10 FASTING 10 HOUR 11 FASTING 10 HOUR 12 Because ethnic data is not always readily [...] 15-29 5 Kidney failure <15 (or dialysis) 13 Results suggest response to immunization or prior exposure to the virus. REFERENCE VALUE Vaccinated: Positive (>=1.1 AI) Unvaccinated: Negative (<=0.8 AI) 14 Test Performed by: [facility] [place] [facility] [place] [address] [place] [id number] Procedures Date Code Description Status 08/24/2016 833675143 Diabetic Retinal Eye Exam Completed 12/17/2015 459675705 Diabetic Retinal Eye Exam Completed 12/02/2015 888975179 Diabetic Retinal Eye Exam Completed Medical Devices Description No Information Available Encounters Type Date Location Provider Dx Diagnosis Office Visit 06/12/2019 [facility] Internal Jennifer Mccord, R53.83 Other fatigue 9:30a Medicine - Ccmob D64.9 Anemia, unspecified E03.9 Hypothyroidism, unspecified R29.6 Repeated falls S59.912A Unspecified injury of left forearm, initial encounter Office Visit 06/07/2019 2:00p [facility] Tony Meza Z87.440 Personal history For Infectious Vijay Hull of urinary Diseases (tract) infections R33.9 Retention of urine, unspecified Office Visit 05/23/2019 3:30p [facility] Sheeba Soto, G35 M[facility] With [facility] M.D. sclerosis G43.709 Chronic migraine w/o aura, not intractable, w/o stat migr 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 Office Visit 04/18/2019 9:30a [facility] Sheeba Soto, G35 Merged With [facility] M.D. sclerosis H46.8 Other optic neuritis 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 G43.709 Chronic migraine w/o aura, not intractable, w/o stat migr Office 03/22/2019 [facility] Gastroenterology Ashok Hernandez K59.00 Constipation, Visit 3:45p MD [place] unspecified K59.2 Neurogenic bowel, not elsewhere classified E66.9 Obesity, unspecified G89.4 Chronic pain syndrome G35 Multiple sclerosis Assessments Date Code Description Provider 07/16/2019 J18.9 Pneumonia, unspecified organism Luis Trujillo, [employer] 06/12/2019 R53.83 Other fatigue Jennifer Mccord MD 06/12/2019 D64.9 Anemia, unspecified Jennifer Mccord MD 06/12/2019 E03.9 Hypothyroidism, unspecified Jennifer Mccord MD 06/12/2019 R29.6 Repeated falls Jennifer Mccord MD 06/12/2019 S59.912A Unspecified injury of left forearm, Jennifer Mccord MD initial encounter 06/07/2019 Z87.440 Personal history of urinary (tract) Tony Hull M.D. infections 06/07/2019 R33.9 Retention of urine, unspecified Tony Hull M.D. 05/23/2019 G35 Multiple sclerosis Sheeba Soto M.D. 05/23/2019 G43.709 Chronic migraine without aura, not Sheeba Soto M.D. intractable, without status migrainosus 05/23/2019 Z86.03 Personal history of neoplasm of Sheeba Soto M.D. uncertain behavior 04/18/2019 G35 Multiple sclerosis Sheeba Soto M.D. 04/18/2019 H46.8 Other optic neuritis Sheeba Soto M.D. 04/18/2019 Z86.03 Personal history of neoplasm of Sheeba Soto M.D. uncertain behavior 04/18/2019 G43.709 Chronic migraine without aura, not Sheeba Soto M.D. intractable, without status migrainosus 03/22/2019 K59.00 Constipation, unspecified Ashok Avila MD 03/22/2019 K59.2 Neurogenic bowel, not elsewhere Ashok Avila MD classified 03/22/2019 E66.9 Obesity, unspecified Ashok Avila MD 03/22/2019 G89.4 Chronic pain syndrome Ashok Avila MD 03/22/2019 G35 Multiple sclerosis Ashok Avila MD Plan of Treatment Future Appointment(s):08/01/2019 10:30 am - Sheeba Soto M.D. at [facility]12/21/2019 8:40 am - Alondra Fisher MD at [facility] Internal Medicine-Hjyqkkrle93/23/2019 - Luis Trujillo, NPJ18.9 Pneumonia, unspecified organismNew Medication:Levofloxacin 500 mg - one by mouth daily for 10 daysGuaifenesin-Codeine 100-10 mg/5ML - 5-10 milliliters every 6 hours as neededNew Xrays:Chest PA & Lat 2 VWS, Ordered: 07/16/19Comments:Start the levofloxacin once daily.Use the cough medication at night to rest. If your symptoms are worsening or not improving at all over the next few days go to the ER.Follow up:JANE: [facility]. Functional Status Description No Information Available Mental Status Description No Information Available Referrals Description No Information Available
[2019-09-03] MEDS ORDERED: Morphine 4 MG/ML VIAL (1 ml) 4 MG/ML VIAL IV ONE (12:00)
[2019-09-03] MEDS ORDERED: Propofol* 10 MG/ML 20 ML BTL IV PUSH ONE (12:54)
[2019-09-03] MEDS ORDERED: fentaNYL* 50 MCG/ML 2 ML VIAL (100 MCG VIAL) IV SLOW PU ONE ×2 (13:16→15:10)
[2019-09-03] MEDS ORDERED: Propofol* 0 ML ONE (13:28)
--- NOTE | 2019-09-03 13:28 | ED ---
ED Sedation - Procedural Sedation/Analgesia Sedation Course: RT Present, Emergency Airway Equipment Available, Informed Consent Obtained, Time Out Completed, End-tidal Capnography Utilized Adverse Reactions Experienced by Patient: None Mallampati Classification: Class III ASA Classification: Class III: Severe Systemic Disease Diagnosis: Left ankle displaced fracture Pre-Procedural Heart: S1 and S2 Pre-Procedural Lungs: Clear Auscultation Comment/Plan of Care: Propofol was used for conscious sedation Provider Procedure Attestation: With My Signature Below, I Attest to have Personally Reviewed and Agree with the Pre-Sedation History and Pre-Service Assessment Update Cleared for Moderate Sedation: Yes Pre-Procedural Diagnosis: Left ankle displaced fracture Post-Procedural Diagnosis: Left ankle displaced fracture Procedure: Procedural sedation for ankle fracture reduction Estimated Blood Loss: None Specimen(s): None Findings: None Implants/Tubes/Drains Placed: None - Attestation Statements Document Initiated by Scribe: Yes Documenting Scribe: Sindy Silva Provider For Whom Scribe is Documenting (Include Credential): Clay Garcia MD Scribe Attestation: Sindy Robison, scribed for Clay Garcia MD on 09/05/19 at 0241. Scribe Documentation Reviewed: Yes Provider Attestation: The documentation as recorded by the Sindy richards accurately reflects the service I personally performed and the decisions made by , Clay Garcia MD Status of Scribe Document: Viewed
[2019-09-03] MEDS ORDERED: Ondansetron INJ* 2 MG/ML VIAL IV PRN (15:27)
[2019-09-03] MEDS ORDERED: Ondansetron ODT TAB* 4 MG PO PRN (15:27)
[2019-09-03] MEDS ORDERED: diPHENhydraMINE PO* 25 MG PO PRN (15:27)
[2019-09-03] MEDS ORDERED: diPHENhydraMINE IV* 50 MG/ML 1 ml VIAL (BENADRYL) IV PRN (15:27)
[2019-09-03] MEDS ORDERED: oxyCODONE TAB* 5 MG TAB PO PRN ×2 (15:27→15:54)
[2019-09-03] MEDS ORDERED: Magnesium Hydroxide LIQ* 30 ML UDC PO PRN (15:27)
[2019-09-03] MEDS ORDERED: Albuterol HFA INHALER* 8 gm MDI INH PRN ×2 (15:32→19:41)
[2019-09-03] MEDS ORDERED: Ondansetron TAB* 4 MG PO PRN (15:32)
[2019-09-03] MEDS ORDERED: Famotidine IV* 10 MG/ML 2 ML (20 mg) IV ONE (15:52)
[2019-09-03] MEDS ORDERED: Levalbuterol 0.63MG/3ML NEB* UNIT OF USE INH ONE ×2 (15:52→16:35)
[2019-09-03] MEDS ORDERED: Ondansetron ODT TAB* 4 MG PO ONE ×2 (15:52)
[2019-09-03] MEDS ORDERED: Buffered Lidocaine 1% SYRIN* 1 ML/SYRINGE INTRADERM ONE (15:52)
[2019-09-03] MEDS ORDERED: Dexamethasone IV* 4 MG/ML 1 ML (4 MG) IV SLOW PU ONE (15:52)
[2019-09-03] MEDS ORDERED: PROCHLORPERAZINE INJ 5 MG/ML 2 ML VIAL IV PRN ×2 (15:54→19:41)
[2019-09-03] MEDS ORDERED: HYDROmorphone INJ1* 1 MG/ML SYRINGE IV PRN ×2 (15:54→19:41)
[2019-09-03] MEDS ORDERED: Naloxone* 0.4 MG/ML 1 ML VIAL IV PRN ×2 (15:54→19:41)
[2019-09-03] MEDS ORDERED: DiMENhydriNATE IV* 50 MG/ML VIAL IV PUSH PRN ×2 (15:54→19:41)
[2019-09-03] MEDS ORDERED: fentaNYL* 50 MCG/ML 2 ML VIAL (100 MCG VIAL) IV PRN (15:54)
[2019-09-03] MEDS ORDERED: Rizatriptan 10 MG TAB PO SCH (16:00)
[2019-09-03] MEDS ORDERED: INTERFERON BETA SUBCUT SCH ×2 (16:00→17:00)
[2019-09-03] MEDS ORDERED: Lactated Ringers 1000 ML Bag* 1,000 ML IV SCH ×3 (16:00→17:00)
[2019-09-03] MEDS ORDERED: KETAMINE HCL* 50 MG/ML 10 ML VIAL ONE (16:10)
[2019-09-03] MEDS ORDERED: Midazolam* 1 MG/ML 5 ML VIAL (5 MG) ONE (16:10)
[2019-09-03] MEDS ORDERED: fentaNYL* 50 MCG/ML 5 ML VIAL (250 MCG VIAL) ONE (16:10)
--- NOTE | 2019-09-03 16:14 | PN ---
Progress Note - Progress Note Date of Service: 09/03/19 Note: See dictated report for full details. Patient has a left trimalleolar ankle fracture dislocation unable to be adequately closed reduced. It will require ORIF or exfix tonight by Dr. Castaneda. The patient is in agreement to this. Preop eval ordered cbc, bmp, inr, t&s, cxr, ekg. Of note she has MS with neuropahy waist distally, MRSA hx s/p spine surgery in 2014, neurogenic bladder requiring self straight cath 5-7x/day.
[2019-09-03 16:17] LABS: ABS Basophils 0.1 10^3/ul (0-0.2); ABS Eosinophils 0.1 10^3/ul (0-0.6); ABS Lymphocytes 1.6 10^3/ul (1.0-4.8); ABS Monocytes 0.6 10^3/ul (0-0.8); ABS Neutrophils 6.7 10^3/ul (1.5-7.7); Eosinophil % 1.3 %; Hematocrit 36 % (35-47); Lymphocyte % 17.8 %; Mean Corpuscular HGB Conc 33 g/dL (31-36); Mean Corpuscular Hemoglobin 27 pg (27-31); Mean Corpuscular Volume 80 fL (80-97); Mean Platelet Volume 7.2 fL (7.4-10.4); Platelet Count 357 10^3/uL (150-450); Red Cell Distribution Width 16 % (10-15); White Blood Count 9.1 10^3/uL (3.5-10.8)
[2019-09-03 16:19] LABS: INR 1.14 (0.82-1.09)
[2019-09-03] MEDS ORDERED: Dexamethasone IV* 4 MG/ML 1 ML (4 MG) ONE (16:34)
[2019-09-03] MEDS ORDERED: Famotidine IV* 10 MG/ML 2 ML (20 mg) ONE (16:35)
[2019-09-03] MEDS ORDERED: Ondansetron ODT TAB* 4 MG ONE (16:35)
--- NOTE | 2019-09-03 16:39 | ED ---
Lower Extremity - HPI Summary HPI Summary: This patient is a 39-year-old female presenting to the ED with a left ankle injury. Patient states she tripped over a snow bank, falling forward and twisting her left ankle. She felt a "pop" and has been intense was 10 pain since then. Unable to ambulate. Obvious deformity to the left lower extremity. Denies any pain to the knee or to the hip. Denies any other pain, trauma or hitting her head. Denies LOC. She was able to call the ambulance who transported her here for further evaluation. Denies any numbness or tingling. - History of Current Complaint Chief Complaint: EDExtremityLower Stated Complaint: LEFT FRACTURED ANKLE PER EMS Time Seen by Provider: 09/03/19 10:55 Hx Obtained From: Patient Hx Last Menstrual Period: 01/20/17 Mechanism Of Injury: Fall From A Standing Position Onset of Pain: Immediate Onset/Duration: Minutes Severity Initially: Severe Severity Currently: Severe Pain Intensity: 4 Pain Scale Used: 0-10 Numeric Timing: Constant Location: Is Discrete @ - left ankle Character Of Pain: Aching, Throbbing Associated Signs And Symptoms: Positive: Bruising. Negative: Swelling, Redness Aggravating Factor(s): Standing, Ambulation Alleviating Factor(s): Nothing Able to Bear Weight: No - Allergies/Home Medications Allergies/Adverse Reactions: Allergies Allergy/AdvReac Type Severity Reaction Status Date / Time Latex, Natural Rubber Allergy Hives Verified 09/03/19 11:03 nitrofurantoin Allergy Hives/Diff. Verified 09/03/19 11:03 [From Macrobid] Breathing/I tching Tree Nuts Allergy Rash Verified 09/03/19 11:03 Home Medications: Home Medications Bupropion XL* [Wellbutrin XL *] 300 mg PO DAILY 09/03/19 [History Confirmed 05/13] Calcium Carbonate/Vitamin D3 [Calcium/Vitamin D] 1 cap PO DAILY 09/03/19 [ History Confirmed 09/03/19] Calcium Polycarbophil TAB* [Fibercon TAB*] 625 - 1,250 mg PO DAILY 09/03/19 [ History Confirmed 09/03/19] Cholecalciferol TAB* [Vitamin D TAB*] 5,000 units PO DAILY 09/03/19 [History Confirmed 09/03/19] Cyanocobalamin TAB* [Vitamin B12 TAB*] 500 mcg PO DAILY 09/03/19 [History Confirmed 09/03/19] Dalfampridine [Dalfampridine ER] 10 mg PO BID 09/03/19 [History Confirmed ] Ferrous Sulfate TAB* 325 mg PO DAILY 09/03/19 [History Confirmed 09/03/19] Fluticasone NASAL SPRAY 50MCG* [Flonase NASAL SPRAY 50MCG*] 2 spray BOTH NARES BID 09/03/19 [History Confirmed 09/03/19] Folic Acid TAB* [Folvite TAB*] 1 mg PO DAILY 09/03/19 [History Confirmed ] Ibuprofen TAB* [Advil TAB*] 400 mg PO BID PRN 09/03/19 [History Confirmed ] Liothyronine TAB* [Cytomel TAB*] 25 mcg PO DAILY 09/03/19 [History Confirmed 05/13] Methenamine Hippurate TAB* [Hiprex TAB*] 1 gm PO BID 09/03/19 [History Confirmed 09/03/19] Omeprazole CAP (NF) [Prilosec CAP* 20 MG] 20 mg PO DAILY 09/03/19 [History Confirmed 09/03/19] Ondansetron TAB* [Zofran 4 MG Tab*] 4 mg PO Q8H PRN 09/03/19 [History Confirmed 09/03/19] Polyethylene Glycol 3350* [Miralax (17 GM DOSE ASHWINI)] 17 gm PO DAILY PRN [History Confirmed 09/03/19] oxyCODONE TAB* [Roxycodone TAB 5 mg*] 5 - 10 mg PO Q6H PRN 09/03/19 [History Confirmed 09/03/19] PMH/Surg Hx/FS Hx/Imm Hx Previously Healthy: Yes Endocrine/Hematology History: Denies: Hx Diabetes Cardiovascular History: Denies: Hx Hypertension, Hx Pacemaker/ICD Respiratory History: Reports: Hx Asthma - since childhhod Denies: Other Respiratory Problems/Disorders GI History: Reports: Other GI Disorders - bowel regime after spinal surgery History: Reports: Other Problems/Disorders - self cath 6 x per day Denies: Hx Dialysis, Hx Renal Disease Musculoskeletal History: Reports: Other Musculoskeletal History - hip dusplasia , tumor removed from back benign Sensory History: Denies: Hx Hearing Aid Comment Only: Hx Contacts or Glasses - WEARS GLASSES. Opthamlomology History: Comment Only: Hx Contacts or Glasses - WEARS GLASSES. Neurological History: Reports: Hx Headaches - r/t ms, Hx Migraine - 3 per month , Other Neuro Impairments/Disorders - MS Psychiatric History: Reports: Hx Anxiety, Hx Depression Denies: Hx Panic Disorder - Surgical History Surgery Procedure, Year, and Place: 06/2018 BREAST REDUCTION. LT HIP - A BABY -. TONSILECTOMY. C SECTION 11/06. LAMINECTOMY -LSP TUMOR REMOVED 01/2015. LSP BACTERIAL WASHOUT 03/08 Hx Anesthesia Reactions: Yes - wakes up slow - Immunization History Hx Pertussis Vaccination: No Immunizations Up to Date: Yes Infectious Disease History: No Infectious Disease History: Reports: Hx of Known/Suspected MRSA - SPINE 02/2015 Denies: Traveled Outside the [place] in Last 30 Days - Family History Known Family History: Positive: None Negative: Cardiac Disease, Hypertension, Diabetes - Social History Occupation: Unemployed Lives: Alone Alcohol Use: None Alcohol Amount: 1 per month Hx Substance Use: No Substance Use Type: Reports: None Smoking Status (MU): Never Smoked Tobacco Have You Smoked in the Last Year: No Review of Systems Negative: Fever, Chills, Fatigue, Skin Diaphoresis Negative: Palpitations, Chest Pain Negative: Shortness Of Breath, Cough Genitourinary: Negative Positive: no symptoms reported, see HPI Positive: Arthralgia All Other Systems Reviewed And Are Negative: Yes Physical Exam Triage Information Reviewed: Yes Vital Signs On Initial Exam: Initial Vitals Temp Pulse Resp BP Pulse Ox 98.8 F 81 20 166/95 97 09/03/19 11:00 09/03/19 11:00 09/03/19 11:00 09/03/19 11:09/03/19 11:00 Vital Signs Reviewed: Yes Appearance: Positive: Well-Appearing, Well-Nourished Skin: Positive: Warm, Skin Color Reflects Adequate Perfusion Head/Face: Positive: Normal Head/Face Inspection Eyes: Positive: Conjunctiva Clear Neck: Positive: Supple, No Lymphadenopathy Respiratory/Lung Sounds: Positive: Clear to Auscultation, Breath Sounds Present Cardiovascular: Positive: Pulses are Symmetrical in both Upper and Lower Extremities Musculoskeletal: Positive: Pain @ - left ankle with deformity Neurological: Positive: Speech Normal Psychiatric: Positive: Affect/Mood Appropriate Procedures - Sedation Patient Received Moderate/Deep Sedation with Procedure: Yes Are You The Provider Who Administered The Sedation: [place] of Provider Whom Sedated Patient: Clay Garcia - see separate note Diagnostics - Vital Signs Vital Signs Temp Pulse Resp BP Pulse Ox 09/03/19 16:22 98.0 F 76 18 105/102 99 09/03/19 15:48 150/102 09/03/19 15:18 73 159/86 99 09/03/19 15:16 25 09/03/19 14:47 77 145/89 99 09/03/19 14:17 75 149/86 97 09/03/19 14:00 74 99 09/03/19 13:45 75 129/77 100 09/03/19 13:43 24 09/03/19 13:40 74 109/64 99 09/03/19 13:34 78 133/101 100 09/03/19 13:32 82 132/89 100 09/03/19 13:30 79 142/99 100 09/03/19 13:20 77 157/122 100 09/03/19 13:02 86 146/105 96 09/03/19 13:00 83 99 09/03/19 12:03 80 129/97 99 09/03/19 12:01 80 100 09/03/19 11:40 20 09/03/19 11:32 85 130/100 100 09/03/19 11:03 87 99 09/03/19 11:02 85 166/95 98 09/03/19 11:00 98.8 F 81 20 166/95 97 - Laboratory Lab Results: Lab Results 09/03/19 09/03/19 09/03/19 Range/Units 15:52 16:01 16:01 WBC 9.1 (3.5-10.8) 10^3/uL RBC 4.50 (3.70-4.87) 10^6 /uL Hgb 12.0 (12.0-16.0) g/dL Hct 36 (35-47) % MCV 80 (80-97) fL MCH 27 (27-31) pg MCHC 33 (31-36) g/dL RDW 16 H (10-15) % Plt Count 357 (150-450) 10^3/uL MPV 7.2 L (7.4-10.4) fL Neut % (Auto) 73.1 % Lymph % (Auto) 17.8 % [place] % (Auto) 7.1 % Eos % (Auto) 1.3 % Baso % (Auto) 0.7 % Absolute Neuts (auto) 6.7 (1.5-7.7) 10^3/ul Absolute Lymphs (auto) 1.6 (1.0-4.8) 10^3/ul Absolute Monos (auto) 0.6 (0-0.8) 10^3/ul Absolute Eos (auto) 0.1 (0-0.6) 10^3/ul Absolute Basos (auto) 0.1 (0-0.2) 10^3/ul Absolute Nucleated RBC 0.0 10^3/ul Nucleated RBC % 0.0 INR (Anticoag Therapy) 1.14 H (0.82-1.09) Blood Type O Positive Antibody Screen Pending Result Diagrams: 09/03/19 16:01 Lab Statement: Any lab studies that have been ordered have been reviewed, and results considered in the medical decision making process. Lower Extremity Course/Dx - Course Course Of Treatment: Physical examination, there is obvious deformity to the left ankle. Slight tint to the medial ankle with ecchymosis. Slight swelling noted. No pain to the LLE otherwise. Severe pain to the bilateral sides of the ankle. Pt was given 100 mg fentanyl en route. Given another 75mg on arrival and subsequently givne 8mg morphine. This without much effect. Xray obtained which shows comminuted fracture of the ankle. Discussed with patient the need for reduction. Patient refuses without sedation. Dr. Garcia to provide sedation. The ankle was distracted and reduced to the best position. Pt did not tolerate well and continued to move the extremity. Plaster splint applied with extra padding to the ankle. Reduced tinting. Follow up xrays shows improvement with continued posterior and lateral dislocated talus. CT obtained per orthopedics - discussed case with Dr. Sherman who will take to the OR. - Diagnoses Differential Diagnosis/HQI/PQRI: Positive: Fracture (Closed), Other - dislocation Provider Diagnoses: Trimalleolar fracture of ankle, closed Discharge ED - Sign-Out/Discharge Documenting (check all that apply): Patient Departure - Discharge Plan Condition: Fair Disposition: ADMITTED TO [facility] Referrals: Alondra Fisher MD [Primary Care Provider] - - Billing Disposition and Condition Condition: FAIR Disposition: Admitted to [facility]
[2019-09-03] MEDS ORDERED: HYDROmorphone INJ1* 1 MG/ML SYRINGE ONE (16:54)
[2019-09-03 17:00] LABS: BUN/Creatinine Ratio 14.3 (8-20); Calcium 9.4 mg/dL (8.6-10.3); EGFR African American 128.7 (>60); EGFR Non-African American 106.3 (>60); Potassium 4.1 mmol/L (3.5-5.0)
[2019-09-03] MEDS ORDERED: Vancomycin(*) 1,500 MG in NS 0.9% 250 ML* 250 ML IVPB ONE (17:00)
[2019-09-03] MEDS ORDERED: Rizatriptan 10 MG TAB PO PRN (17:00)
--- NOTE | 2019-09-03 18:18 | HP ---
AMENDED REPORT NOW INCLUDES DESIGNATED COSIGNER - ESIGNED BEFORE ADJUSTMENTS ADMISSION HISTORY AND PHYSICAL: DATE OF ADMISSION: 09/03/19 ATTENDING ORTHOPEDIC PROVIDER: Dr. Shen Castaneda.* (DICTATED BY SOPHIA STATON) PRIMARY CARE PHYSICIAN: Dr. Fisher. NEUROLOGIST: Dr. Soto. CHIEF COMPLAINT: Left ankle fracture dislocation. HISTORY OF PRESENT ILLNESS: The patient is a 39-year-old female who suffered a mechanical fall earlier today resulting in a left trimalleolar ankle fracture dislocation with attempted reduction under conscious sedation in the emergency room, though with insufficient reduction. Injury occurred while the patient was walking over a snowbank. She misstepped and fell to the ground. She has neuropathy from the waist distally due to diagnosis of MS and spinal tumor removal in 2014 which left her with severely decreased sensation distal to the waist. Today, she has 9/10 pain in the left ankle. Ankle is splinted. Pain radiates up to leg. She has no pain elsewhere. She did not hit her head or lose consciousness when she fell. Pain is sharp and severe, worsen with any movement. Her past medical history is significant for multiple sclerosis with associated neurogenic bladder and fecal incontinence, migraines and depression. She has no history of heart attack, stroke, blood clot. She has had surgery in the past which she has tolerated well without any problems with anesthesia. She has been n.p.o. since this morning at 0900 when she had unsweetened iced tea and seltzer. She has not eaten anything since last night. PAST MEDICAL HISTORY: Depression, migraines, multiple sclerosis, neurogenic bladder, fecal incontinence. MEDICATIONS: Medication reconciliation is underway by nurses. DRUG ALLERGIES: MACROBID which causes boils. CIPRO which interacts with MS medications, not a true allergy. LATEX and ADHESIVE TAPE. SOCIAL HISTORY: The patient lives with her mother and her son. She is on disability due to MS. She is a former nurse. At baseline, she walks without an assistive device, though she is supposed to be using a walker. She does not smoke, drink alcohol or use any drugs. REVIEW OF SYSTEMS: General: No fever, chills, recent illness. HEENT: No headache or change in vision. Denies any head trauma. Cardio: No chest pain. No history of FL. Respiratory: No history of shortness of breath. GI: No abdominal pain, nausea, vomiting, diarrhea. : No dysuria. The patient does have a neurogenic bladder. She straight caths 5 to 7 times per day. Musculoskeletal: Positive pain in the left ankle. No other musculoskeletal pain. Neuro: Neuropathy from the waist down due to MS and status post spinal tumor removal in 2015. PHYSICAL EXAMINATION GENERAL: Obese female, appears well, in no acute distress. VITAL SIGNS: Temperature 98.8, pulse rate 81, respiratory rate 20, oxygen saturation 97%, blood pressure 166/95. HEENT: Normocephalic, atraumatic. Extraocular movements are intact. RESPIRATORY: Clear to auscultation bilaterally. CARDIAC: S1, S2. No irregular rhythm. No murmur. ABDOMEN: Obese abdomen, nondistended, nontender. Bowel sounds normoactive. MUSCULOSKELETAL: Bilateral upper extremities and right lower extremity with skin envelope intact. Able to flex and extend all joints actively without any pain. She is nontender to palpation. Negative log roll at the right hip. Left lower extremity: She has a lower leg splint on the knee in place. She is nontender to palpation throughout the exposed portion of the extremity though she does have some severe neuropathy. The skin envelope is intact. She has very little sensation from waist distally which is baseline. She reports inability to wiggle her toes which is a change from baseline though there is very slight movement at MTPs and no pain with passive stretch. Exposed portion of calf is compressible Toes are warm and well perfused. Capillary refill less than 2 seconds distally. DIAGNOSTIC STUDIES/LAB DATA: Trimalleolar fracture of the left ankle with posterior dislocation of the talus. Chest x-ray and EKG are underway. Laboratory studies: CBC, BMP, INR have all been ordered and type and screen have all been ordered. ASSESSMENT: Closed left trimalleolar ankle fracture dislocation. PLAN: The patient will be on bedrest. She will be nonweightbearing on the left lower extremity, keep that extremity elevated on at least 4 pillows and ice until time of surgery to help reduce swelling. I have ordered an EKG, chest x-ray, preop labs. Dr. Castaneda will be taking her to the operating room for an ORIF versus an ex-fix of the left ankle. RCRI score is 0 as this is not high risk surgery, The patient has no history of ischemic heart disease, no congestive heart failure, no cerebrovascular disease, no preop treatment with insulin. Creatinine done in March of 2019 was 0.66. She will have a repeat creatinine today prior to surgery. As she has a hx MRSA recommend vanco as preop abx. SOPHIA STATON [id number]/[facility] #: [id number] [facility]
[2019-09-03] MEDS ORDERED: Sugammadex * 500 MG/5 ML VIAL IV PUSH ONE (19:16)
[2019-09-03] MEDS ORDERED: Propofol* 10 MG/ML 20 ML BTL ONE (19:19)
[2019-09-03] MEDS ORDERED: Lidocaine 2% PF * 5 ML VIAL ONE (19:20)
[2019-09-03] MEDS: fentaNYL* 50 MCG/ML 2 ML VIAL (100 MCG VIAL) IV PRN ×2 (19:50→20:01)
[2019-09-03] MEDS ORDERED: Vancomycin per Pharmacy* NOTE FOLLOW UP SCH (20:00)
[2019-09-03] MEDS ORDERED: oxyCODONE TAB* 5 MG TAB ONE (20:05)
[2019-09-03] MEDS: oxyCODONE TAB* 5 MG TAB PO PRN ×2 (20:06→20:15)
[2019-09-03] MEDS ORDERED: fentaNYL* 50 MCG/ML 2 ML VIAL (100 MCG VIAL) ONE (20:25)
[2019-09-03] MEDS ORDERED: Methenamine Hippurate TAB* 1 GM TAB PO SCH (21:00)
[2019-09-03] MEDS ORDERED: Fluticasone HFA 110 mcg(NF) MDI INH SCH (21:00)
[2019-09-03] MEDS ORDERED: DALFAMPRIDINE 10 MG PO SCH (21:00)
[2019-09-03] MEDS ORDERED: Fluticasone NASAL SPRAY 50MCG* 16 gm SPRAY BTL BOTH NARES SCH (21:00)
[2019-09-03] MEDS ORDERED: Propranolol TAB* 80 MG PO SCH (21:00)
[2019-09-03] MEDS: traMADol TAB* 50 MG PO PRN (22:41)
[2019-09-03] MEDS: Cyclobenzaprine TAB* 10 MG PO PRN (22:41)
[2019-09-03] MEDS: Docusate CAP* 100 MG PO SCH (22:41)
[2019-09-03] MEDS: traZODone TAB* 50 MG TAB PO SCH (22:41)
[2019-09-03] MEDS: Propranolol TAB* 80 MG PO SCH (22:43)
[2019-09-03] MEDS: Magnesium Hydroxide LIQ* 30 ML UDC PO SCH (22:45)
[2019-09-03] MEDS: Methenamine Hippurate TAB* 1 GM TAB PO SCH (22:46)
[2019-09-03] MEDS: DALFAMPRIDINE 10 MG PO SCH (22:47)
[2019-09-03] MEDS: Acetaminophen TAB* 325 MG PO SCH (22:50)
[2019-09-03] MEDS: Mometasone 220 MCG MDI INH SCH (22:53)
[2019-09-03] MEDS: Fluticasone NASAL SPRAY 50MCG* 16 gm SPRAY BTL BOTH NARES SCH (22:55)
[2019-09-03] MEDS: Morphine INJ* 2 MG/ML 1 ML SYRINGE (TWO MG - NEW SYRINGE VERSION) IV PRN (23:21)
[2019-09-03] MEDS: Vancomycin(*) 1,500 MG in NS 0.9% 250 ML* 250 ML IVPB SCH (23:37)
[2019-09-04] MEDS: oxyCODONE TAB* 5 MG TAB PO PRN ×5 (01:49→21:35)
--- NOTE | 2019-09-04 02:13 | OP ---
DATE OF OPERATION: 09/03/19 - ROOM #339 DATE OF : 84 SURGEON: Shen Castaneda MD INDUSTRIAL ECOLOGIST: SOPHIA Umanzor. A physician financial planning assistant was required for the length of the procedure for patient positioning, instrumentation, and manipulation. ANESTHESIOLOGIST: Dr. Maciel Keith. ANESTHESIA: General anesthesia. PRE-OP DIAGNOSIS: Left ankle trimalleolar fracture dislocation. POST-OP DIAGNOSIS: Left ankle trimalleolar fracture dislocation. OPERATIVE PROCEDURE: Closed relocation and external fixation of left ankle trimalleolar fracture dislocation. INDICATIONS: The patient is a 39-year-old woman with multiple sclerosis with some baseline neuropathy, along with a history of surgery for neoplasm about the spine, who has an elevated BMI, who misstepped earlier on the day of surgery and felt a snap, pain and deformity to the left ankle and presented to the emergency room at [facility] with a grossly dislocated left ankle with trimalleolar fracture fragments visible. Under conscious sedation, reduction maneuver was attempted in the emergency room , but was unsuccessful. CT scan was obtained which demonstrated posterior medial and lateral malleolus fractures. Met the patient and her mother in preoperative holding. Discussed the significance of this injury, especially with regards to infection and wound breakdown, but discussing all standard risks and potential complications of surgery. The risks are certainly heightened given the patient's history of neuropathy and history of multiple prior postoperative infections throughout the body including spine and breasts. Discussed 2 potential treatments this evening, either definitive open reduction and internal fixation of all 3 of the malleoli or possibly just of the posterior and lateral malleoli. Alternatively, closed reduction or relocation followed by external fixation. Discussed that this decision would be made based on the integrity of the soft tissues. ANTIBIOTICS: Vancomycin 1.5 g IV. IV FLUIDS: See Anesthesia note. POSITIONING: Supine. [id number] TIME: Approximately 50 minutes. TOURNIQUET TIME: Zero minutes. SPECIMEN: None. IMPLANTS: Synthes large external fixator set, 2 pins placed bicortical on the tibia shaft and 1 pin placed in the calcaneus. COMPLICATIONS: None. ESTIMATED BLOOD LOSS: Minimal. DESCRIPTION OF PROCEDURE: In preoperative holding, the patient signed a written consent. Operative extremity was marked in the preoperative holding. The patient was taken back to the operating room and placed supine on the operating room table. Sedated and intubated. The patient was strapped down well to the table. A Contreras catheter was placed. The left ankle splint was removed. Soft tissues were inspected. There appeared to be much ecchymosis and swelling about the medial ankle. There was no clear skin compromise. Relocated the ankle and reassessed. Medial skin was not appropriate for surgery. That was instantly appreciated. However, I considered performing the posterolateral approach for posterior and lateral plates. However, there was ecchymosis or some subtle blue coloration of the skin about the posterolateral ankle and therefore, I decided that it would be safer to allow these soft tissues to declare themselves and to only proceed with definitive fixation and open incision when I could be more certain of the status of the soft tissues. Therefore, decision was to proceed in the supine position with closed reduction and external fixation. A mini time-out had been performed prior to the first closed reduction maneuver with C-arm demonstrating excellent reduction through closed means. The left lower extremity was prepped and draped after a tourniquet was applied to the left thigh. The tourniquet was never elevated. A large blanket bump was placed under the left hemipelvis to bring that left lower extremity into neutral. Formal surgical time-out was performed. I brought C-arm in. I determined how far proximal, the proximal most component of fixation, for definitive surgery would go and I moved well proximal to that area and made a liz in the skin just medial to the anterior ridge of the tibial shaft. Spread with a hemostat down to bone. Drilled from anterior to posterior with a 3.5- mm drill bicortically and then placed my ex-fix pin bicortically. Lateral x-ray view showed it to be just through the second cortex. I used a guide to then determine where I would drill next and drilled and then placed a second pin. I next moved down to the foot. Eyeballed the correct position medially for my pin. Confirmed it with radiograph. Made a skin incision and spread through the subcutaneous tissue to bone and placed my pin from medial to lateral through the posteroinferior calcaneus. Applied external fixator, set all appropriate rods and capture devices. Performed reduction maneuver. This was more difficult than it typically is likely because of how unstable this fracture was. The talus really wanted to displace posteriorly, but we countered that tendency and obtained excellent reduction of fracture fragments and excellent relocation of ankle joint. We tightened all hardware. We put together a kick stand for the inferior aspect of the external fix device. Again, we confirmed full tightening of all components of the external fixator. I placed Xeroform, then 4x4s, then Kerlix, then Amarjit bandage about the ex-fix. Dropped drape and brought the patient to the PACU. DISPOSITION: The patient will be admitted to the orthopedic service postoperatively. She will be on strict elevation, multiple pillows, such as 8- pillow elevation to minimize the soft tissue edema that is incurred. We will continue her prophylactically on vancomycin given the presence of external fixator pins and the patient's history of a MRSA infection postoperatively after another unrelated procedure. Just as a precaution, we will get an Infectious Disease consult. According to the patient's mother, Dr. Hull is well aware of the patient given her history of infections and her neuropathy. Our plan will be to operate, definitively, open reduction and internal fixation trimalleolar facture, when the soft tissues are appropriate for this. I told the family that this could be anywhere from 2 days from now to 2 weeks from now or 2-1/2 weeks from now depending on the status of the soft tissues, the amount of swelling, the wrinkling of the skin, and the formation of any blisters. X- rays in the PACU show anatomic or near anatomic reduction of fracture fragments in ankle, which should help the swelling be kept to a minimum. I should state that in preoperative holding, the patient to move her toes much. I thought this was likely due to pain. She had moved them in the ER according to other members of our team. The toes have been warm and well perfused and I palpated her dorsalis pedis pulse in the preop. In the PACU, the patient's toes were again warm and well perfused. She is able to flex and extend the great toe, but did not do so with the lesser toes. Sensation was noted to be intact and similar to the right foot, by the patient, although it is decreased as compared to other body parts, which is her baseline. [id number]/[facility] #: [id number] [facility]
[2019-09-04] MEDS: Acetaminophen TAB* 325 MG PO SCH ×3 (04:40→22:02)
[2019-09-04] MEDS: traMADol TAB* 50 MG PO PRN ×3 (04:41→16:09)
[2019-09-04] MEDS: Liothyronine TAB* 25 MCG PO SCH (04:42)
[2019-09-04] MEDS: Cyclobenzaprine TAB* 10 MG PO PRN ×3 (04:42→16:09)
[2019-09-04 05:15] LABS: Hematocrit 36 % (35-47); Hemoglobin 12.2 g/dL (12.0-16.0); Mean Platelet Volume 6.9 fL (7.4-10.4); Platelet Count 315 10^3/uL (150-450)
[2019-09-04 05:31] LABS: BUN/Creatinine Ratio 10.6 (8-20); Calcium 8.8 mg/dL (8.6-10.3); EGFR African American 121.9 (>60); EGFR Non-African American 100.8 (>60); Potassium 4.3 mmol/L (3.5-5.0)
[2019-09-04 05:43] LABS: Vancomycin Trough 13.4 mcg/mL
[2019-09-04] MEDS: Ketorolac INJ* 30 MG/ML 1 ML VIAL IV PRN ×3 (08:39→19:55)
[2019-09-04] MEDS: Vancomycin(*) 1,500 MG in NS 0.9% 250 ML* 250 ML IVPB SCH ×2 (08:44→17:17)
[2019-09-04] MEDS: Docusate CAP* 100 MG PO SCH ×2 (08:45→21:35)
[2019-09-04] MEDS: Pantoprazole TAB * 40 MG TAB PO SCH (08:46)
[2019-09-04] MEDS: Calcium/Vitamin D TAB 250/125* TAB PO SCH (08:46)
[2019-09-04] MEDS: BuPROPion XL* 300 MG TAB.XL PO SCH (08:46)
[2019-09-04] MEDS: DULoxetine DR CAP* 60 MG CAP.DR PO SCH (08:46)
[2019-09-04] MEDS: Ferrous Sulfate TAB* 325 MG PO SCH (08:46)
[2019-09-04] MEDS: Cholecalciferol TAB* 1000 UNITS PO SCH (08:46)
[2019-09-04] MEDS: Folic Acid TAB* 1 MG PO SCH (08:46)
[2019-09-04] MEDS: Vitamin THERAPEUTIC TAB PO SCH (08:47)
[2019-09-04] MEDS: Cyanocobalamin TAB* 500 MCG PO SCH (08:47)
[2019-09-04] MEDS: lamoTRIgine TAB(*) 100 MG PO SCH (08:47)
[2019-09-04] MEDS: Methenamine Hippurate TAB* 1 GM TAB PO SCH ×2 (08:48→21:38)
[2019-09-04] MEDS: SOLIFENACIN 10 MG PO SCH (08:48)
[2019-09-04] MEDS: Magnesium Hydroxide LIQ* 30 ML UDC PO SCH ×2 (08:51→21:35)
[2019-09-04] MEDS: Fluticasone NASAL SPRAY 50MCG* 16 gm SPRAY BTL BOTH NARES SCH ×2 (08:53→21:47)
[2019-09-04] MEDS: Calcium Polycarbophil TAB* 625 MG PO SCH (08:53)
[2019-09-04] MEDS ORDERED: VITAMIN D3 PO SCH (09:00)
[2019-09-04] MEDS ORDERED: DULoxetine DR CAP* 60 MG CAP.DR PO SCH (09:00)
[2019-09-04] MEDS ORDERED: Cholecalciferol TAB* 1000 UNITS PO SCH (09:00)
[2019-09-04] MEDS ORDERED: Cyanocobalamin TAB* 500 MCG PO SCH (09:00)
[2019-09-04] MEDS ORDERED: Solifenacin(NF) 10 MG TAB PO SCH (09:00)
[2019-09-04] MEDS ORDERED: BuPROPion XL* 150 MG TAB.XL PO SCH (09:00)
[2019-09-04] MEDS ORDERED: lamoTRIgine TAB(*) 100 MG PO SCH (09:00)
[2019-09-04] MEDS ORDERED: Mirabegron (NF) 25 MG TAB PO SCH (09:00)
[2019-09-04] MEDS ORDERED: CALCIUM CARBONATE PO SCH (09:00)
[2019-09-04] MEDS ORDERED: Calcium Polycarbophil TAB* 625 MG PO SCH (09:00)
[2019-09-04] MEDS ORDERED: Heparin VIAL(*) 5000 UNITS/ML VIAL (FIVE THOUSAND) IV SCH (09:00)
[2019-09-04] MEDS ORDERED: Liothyronine TAB* 25 MCG PO SCH (09:00)
[2019-09-04] MEDS ORDERED: ZINC 50 MG PO SCH (09:00)
[2019-09-04] MEDS: Heparin VIAL(*) 5000 UNITS/ML VIAL (FIVE THOUSAND) SUBCUT SCH ×3 (09:14→21:41)
[2019-09-04] MEDS: INTERFERON BETA SUBCUT SCH (11:12)
[2019-09-04] MEDS: DALFAMPRIDINE 10 MG PO SCH ×2 (11:12→21:49)
[2019-09-04] MEDS: ZINC 50 MG PO SCH (11:13)
[2019-09-04] MEDS: Mirabegron (NF) 25 MG TAB PO SCH (11:13)
[2019-09-04] MEDS: Morphine INJ* 2 MG/ML 1 ML SYRINGE (TWO MG - NEW SYRINGE VERSION) IV PRN (11:24)
--- NOTE | 2019-09-04 12:33 | PN ---
Progress Note - Progress Note Date of Service: 09/04/19 SOAP: Subjective: []Pt seen and examined at bedside today. Her pain left ankle is better controlled but still present. Objective: []Gen: NAD, appears well LLE: pin care with 1:1 saline and peroxide completed, redressed with xeroform, kerlix, tg. Pin sites CDI no discharge or erythema. Skin without blistering. Moderate to severe swelling of ankle without wrinkling, all compartments of lower leg remain compressible. Able to f/e MTPs of digits 1-2. Lacks sensation throughout LE which is baseline. Foot and toes warm and well perfused cap refill less than two seconds distally, DP2+. + tender over proximal fibula Calves supple without palpable cords Assessment: []POD 1 sp ex-fix L ankle trimalleolar fracture dislocation Plan: []NWB LLE Heparin DVT prophylaxis, will stop midnight prior to surgery Keep leg on 8 pillows with ice to reduce swelling ID consulted for abx mgmt due to hx MRSA without active infection. She is currently on vancomycin Tentative plan is for surgery Tuesday Laboratory Last Values WBC 9.1 10^3/uL (3.5-10.8) 09/03/19 16:01 RBC 4.50 10^6 /uL (3.70-4.87) 09/03/19 16:01 Hgb 12.2 g/dL (12.0-16.0) 09/04/19 05:05 Hct 36 % (35-47) 09/04/19 05:05 MCV 80 fL (80-97) 09/03/19 16:01 MCH 27 pg (27-31) 09/03/19 16:01 MCHC 33 g/dL (31-36) 09/03/19 16:01 RDW 16 % (10-15) H 09/03/19 16:01 Plt Count 315 10^3/uL (150-450) 09/04/19 05:05 MPV 6.9 fL (7.4-10.4) L 09/04/19 05:05 Neut % (Auto) 73.1 % 09/03/19 16:01 Lymph % (Auto) 17.8 % 09/03/19 16:01 Harney % (Auto) 7.1 % 09/03/19 16:01 Eos % (Auto) 1.3 % 09/03/19 16:01 Baso % (Auto) 0.7 % 09/03/19 16:01 Absolute Neuts (auto) 6.7 10^3/ul (1.5-7.7) 09/03/19 16:01 Absolute Lymphs (auto) 1.6 10^3/ul (1.0-4.8) 09/03/19 16:01 Absolute Monos (auto) 0.6 10^3/ul (0-0.8) 09/03/19 16:01 Absolute Eos (auto) 0.1 10^3/ul (0-0.6) 09/03/19 16:01 Absolute Basos (auto) 0.1 10^3/ul (0-0.2) 09/03/19 16:01 Absolute Nucleated RBC 0.0 10^3/ul 09/03/19 16:01 Nucleated RBC % 0.0 09/03/19 16:01 INR (Anticoag Therapy) 1.14 (0.82-1.09) H 09/03/19 16:01 Sodium 137 mmol/L (135-145) 09/04/19 05:05 Potassium 4.3 mmol/L (3.5-5.0) 09/04/19 05:05 Chloride 104 mmol/L (101-111) 09/04/19 05:05 Carbon Dioxide 27 mmol/L (22-32) 09/04/19 05:05 Anion Gap 6 mmol/L (2-11) 09/04/19 05:05 BUN 7 mg/dL (6-24) 09/04/19 05:05 Creatinine 0.66 mg/dL (0.51-0.95) 09/04/19 05:05 Est GFR ( Amer) 121.9 (>60) 09/04/19 05:05 Est GFR (Non-Af Amer) 100.8 (>60) 09/04/19 05:05 BUN/Creatinine Ratio 10.6 (8-20) 09/04/19 05:05 Glucose 189 mg/dL (70-100) H 09/04/19 05:05 Calcium 8.8 mg/dL (8.6-10.3) 09/04/19 05:05 Vancomycin Trough 13.4 mcg/mL 09/04/19 05:05 Blood Type O Positive 09/03/19 15:52 Antibody Screen Negative 09/03/19 15:52 Vital Signs Temp 98.4 F 09/04/19 11:23 Pulse 82 09/04/19 11:23 Resp 20 09/04/19 11:24 BP 130/64 09/04/19 11:23 Pulse Ox 91 09/04/19 11:23 Intake & Output 09/03/19 09/04/19 09/04/19 18:59 06:59 18:59 Intake Total 2280 360 Output Total 2350 600 Balance -70 -240 Weight 380 lb 9.6 oz 380 lb Intake: IV Fluids 1800 LR 1800 Oral 480 360 Output: Contreras 2350 600 <Crystal Mcclendon - Last Filed: 09/04/19 12:33> - Progress Note SOAP: Subjective: Pain reduced. Baseline has some alerted lower extremity sensation since her lumbar spine surgery. Objective: LLE - Left ankle ex-fix in place - Much swelling ankle, and some early bruising medial ankle - Can flex/extend great toe, but no flexion/extension lesser toes - Sensation intact plantar dorsal foot, but reduced laterally X-rays in PACU show near-anatomic reduction of trimall fracture lines and ankle joint Assessment: POD 1 ex-fix of L ankle trimall fracture dislocation Plan: - Continue extreme (8 pillow) elevation - We will follow the ankle exam to determine timing of ORIF definitive surgery. Could be 3-10 days from now. - Discussed case with ID service - History of MRSA infected spine hardware. For now, we will use as prophylaxis Vancomycin. - DVT prophylaxis heparin. <Shen Castaneda - Last Filed: 09/04/19 19:30>
--- NOTE | 2019-09-04 15:08 | CONS ---
CONSULTATION REPORT: DATE OF CONSULT: 09/04/19 PRIMARY CARE PROVIDER: Dr. Alondra Fisher. PROVIDER REQUESTING CONSULTATION: SOPHIA Umanzor CONSULTING SERVICE: Infectious Disease. PROVIDER: Nancy Luna NP ATTENDING PROVIDER: Dr. Tony Hull.* (DCTATE BY NANCY LUNA, [employer]) REASON FOR CONSULT: History of MRSA, now with an external fixator in place. IMPRESSION: 1. Left ankle trimalleolar dislocated fracture. Status post closed reduction and external fixator placement, postop day #1. She is afebrile. No leukocytosis yesterday. She is currently receiving vancomycin per orthopedics. 2. Recurrent urinary tract infections. In the setting of a neurogenic bladder after back surgery and secondary to multiple sclerosis. The patient follows with Dr. Hull outpatient regarding this. She is currently on Hiprex and has not had recurrent urinary tract infections since starting the medication. 3. History of methicillin-resistant Staphylococcus aureus infection. This occurred after a back surgery for a tumor in the past. 4. Multiple sclerosis. 5. Morbid obesity. RECOMMENDATIONS/PLAN: Continue vancomycin for now, trough goal 10-15. We will continue to followup along, final recommendations based on clinical course. HISTORY OF PRESENT ILLNESS: Ms. Agarwal is a 39-year-old female with past medical history significant for depression, migraines, multiple sclerosis, neurogenic bladder and morbid obesity, who presented to the hospital after a mechanical fall resulting in a left trimalleolar ankle dislocated fracture. She was unable to have closed reduction under conscious sedation in the emergency room due to insufficient reduction. She was taken to the operating room by Dr. Castaneda last night and underwent a closed reduction with placement of an external fixator and has been on vancomycin. The patient states that she has been in her usual health with the exception in the past week that she has felt as though she has had intermittent fevers and she has a son who is ill with similar symptoms. While in the hospital, she has been afebrile, although she did feel feverish last evening. She has no leukocytosis. She denies any chills, joint pain, muscle pain other than left ankle pain secondary to her fracture, recent travel , urinary symptoms, though she has decreased sensation below the waist secondary to neuropathy from her multiple sclerosis. She reports some intermittent nausea. She does have baseline neurogenic bladder and straight caths at home. PAST MEDICAL HISTORY: 1. Depression. 2. Migraine. 3. Multiple sclerosis. 4. Neurogenic bladder. 5. Fecal incontinence. 6. Neuropathy from the waist down. 7. Recurrent urinary tract infections. 8. PTSD. PAST SURGICAL HISTORY: 1. Status post bilateral reduction mammoplasty. 2. Status post excision of the back; laminectomy; hydromyelia, myxopapillary ependymoma, WHO grade 1. 3. Status post I and D of her back. 4. Status post hip dysplasia surgery as a child. 5. Status post tonsillectomy. 6. Status post section. MEDICATIONS: Home medications: 1. Ibuprofen 400 mg by mouth twice daily as needed for pain. 2. Tizanidine 4 mg by mouth daily at bedtime. 3. Folic acid 1 mg by mouth daily. 4. Calcium/vitamin D 1 capsule by mouth daily. 5. Lamictal 150 mg by mouth daily. 6. Minipress 4 mg by mouth at bedtime. 7. Vitamin B12 500 mcg by mouth daily. 8. Duloxetine 600 mg by mouth daily. 9. Bupropion XL 300 mg by mouth daily. 10. Omeprazole 20 mg by mouth daily. 11. Vitamin D 5000 units by mouth daily. 12. VESIcare 10 mg by mouth daily. 13. Trazodone 100 mg by mouth at bedtime. 14. Zinc 50 mg by mouth daily. 15. Cytomel 25 mcg by mouth daily. 16. Mirabegron 25 mg by mouth daily. 17. Dalfampridine 10 mg by mouth twice daily. 18. Rizatriptan 10 mg by mouth once as needed for headaches. 19. Zofran 4 mg by mouth every 8 hours as needed for nausea. 20. Interferon beta-1a 0.5 mL injection 3 times weekly. 21. Flovent HFA inhaler 110 mcg 2 puffs inhalation twice daily. 22. Albuterol HFA inhaler 2 puffs inhalation 4 times daily as needed for shortness of breath or wheeze. 23. Fluticasone 50 mcg 2 sprays to both nares twice daily. 24. Oxycodone 5 to 10 mg by mouth every 6 hours as needed for pain. 25. Hiprex 1 g by mouth twice daily. 26. MiraLAX 17 g by mouth daily as needed for constipation. 27. FiberCon 625 to 1250 mg by mouth daily. 28. Ferrous sulfate 325 mg by mouth daily. 29. Propranolol 120 mg by mouth daily at bedtime. Hospital medications: 1. Acetaminophen 975 mg by mouth every 8 hours. 2. Albuterol HFA inhaler 2 puffs inhalation 4 times daily as needed for shortness of breath or wheeze. 3. Dulcolax suppository 10 mg per rectum daily as needed for constipation. 4. Bupropion 300 mg by mouth daily. 5. FiberCon 625 mg by mouth daily. 6. Os-Sam D 1 tablet by mouth daily. 7. Vitamin D 5000 units by mouth daily. 8. Vitamin B12 500 mcg by mouth daily. 9. Cyclobenzaprine 10 mg by mouth every 6 hours as needed for muscle spasms. 10. Benadryl 25 mg IV or p.o. every 6 hours as needed for itching. 11. Colace 100 mg by mouth twice daily. 12. Cymbalta 60 mg by mouth daily. 13. Ferrous sulfate 325 mg by mouth daily. 14. Flonase nasal spray 50 mcg 2 sprays to both nares twice daily. 15. Folic acid 1 mg by mouth daily. 16. Heparin sodium 5000 units subcutaneous every 8 hours. 17. Interferon beta-1a 44 mcg subcutaneous on Tuesday, Tuesday, . 18. Toradol 30 mg IV every 6 hours as needed for pain. 19. Lactated Ringer's 100 mL intravenously an hour. 20. Lactulose 30 mL by mouth twice daily as needed for constipation. 21. Lamictal 150 mg by mouth daily. 22. Cytomel 25 mcg by mouth daily. 23. Milk of magnesia 30 mL by mouth twice daily until bowel movement, followed by 30 mL by mouth every 6 hours as needed for constipation. 24. Hiprex 1 g by mouth twice daily. 25. Mirabegron 25 mg by mouth daily. 26. Asmanex 220 mcg 2 puffs inhalation at bedtime. 27. Morphine sulfate 2 mg IV every 2 hours as needed for pain. 28. Multivitamin 1 tablet by mouth daily. 29. Dalfampridine 10 mg by mouth twice daily. 30. Zinc 50 mg by mouth daily. 31. Zofran 4 mg IV or p.o. every 6 hours as needed for nausea. 32. Oxycodone 5 to 10 mg by mouth every 4 hours as needed for pain. 33. Pantoprazole 40 mg by mouth daily. 34. MiraLAX 17 g by mouth daily as needed for constipation. 35. Minipress 4 mg by mouth at bedtime. 36. Propranolol 120 mg by mouth daily. 37. Rizatriptan 10 mg by mouth daily as needed for migraine. 38. VESIcare 10 mg by mouth daily. 39. Tramadol 50 mg by mouth every 6 hours as needed for pain. 40. Trazodone 100 mg by mouth daily at bedtime. 41. Vancomycin 1500 mg IV every 8 hours. ALLERGIES: LATEX; NITROFURANTOIN caused hives, difficulty breathing, and itching; TREE NUTS; and CIPRO, adverse effects due to interaction with medications. FAMILY HISTORY: Reports both grandmothers with a history of recurrent/ resistant infections. Paternal grandpas and mother with a history of heart disease. Maternal grandmother with a history of diabetes. Maternal grandmother with a history of multiple cancers. Father with a history of heart disease. SOCIAL HISTORY: Denies alcohol, tobacco, or recreational drug use. REVIEW OF SYSTEMS: I performed a 10-point review of systems. All the pertinent positives and negatives are mentioned in the history of present illness. The remaining review of systems are negative. PHYSICAL EXAM: Vital Signs: Temperature 97.7, heart rate 66, respiratory rate 16, O2 sat 96% on room air, blood pressure 132/58. General Appearance: The patient appears to be in no acute distress, lying in bed. Head: Normocephalic , atraumatic. EENT: Extraocular movements are intact. No subconjunctival hemorrhage. Moist mucous membranes. Neurological: Alert and oriented. Moves all extremities. Cardiovascular: Regular rate and rhythm. S1 and S2 present. No murmurs, rubs, or gallops heard. Respiratory: No accessory muscle use. The lungs are clear to auscultation bilaterally. Abdomen: Bowel sounds present. Abdomen is soft, obese, and nontender. Extremities: No lower extremity edema. Musculoskeletal: No clubbing or cyanosis. Exhibits equal strength in all extremities. Psychological: Calm and cooperative. Skin: No rashes or abnormalities seen on the exposed skin. She does have an external fixator in place to the left lower extremity, covered in an Amarjit wrap dressing. DIAGNOSTIC STUDIES/LAB DATA: Sodium 137, potassium 4.3, chloride 104, CO2 of 27 , BUN 7, creatinine 0.66, glucose 189. CBC from yesterday: White blood cell count 9.1, hemoglobin 12.6, hematocrit 36, platelet count 357. Please see impression and recommendations outlined above. Recommendations have been discussed with SOPHIA Umanzor. Thank you for asking us to see Ms. Agarwal in consultation. The case has been reviewed with my attending, Dr. Tony Hull, who agrees with the plan. Reviewed by ZAID LEIVA-Angel 09/05/19 1646 [id number]/[facility] #: [id number] MTDD
[2019-09-04] MEDS ORDERED: Vancomycin Trough Check NOTE FOLLOW UP ONE (15:30)
[2019-09-04] MEDS: Mometasone 220 MCG MDI INH SCH (18:37)
[2019-09-04] MEDS: traZODone TAB* 50 MG TAB PO SCH (21:35)
[2019-09-04] MEDS: Propranolol TAB* 80 MG PO SCH (21:40)
[2019-09-04] MEDS: tiZANidine TAB* 2 MG PO PRN (23:22)
[2019-09-05] MEDS: Vancomycin(*) 1,500 MG in NS 0.9% 250 ML* 250 ML IVPB SCH ×3 (00:31→16:02)
[2019-09-05] MEDS: Ketorolac INJ* 30 MG/ML 1 ML VIAL IV PRN ×2 (05:33→17:36)
[2019-09-05] MEDS: Heparin VIAL(*) 5000 UNITS/ML VIAL (FIVE THOUSAND) SUBCUT SCH ×3 (05:33→22:32)
[2019-09-05] MEDS: Liothyronine TAB* 25 MCG PO SCH (05:33)
[2019-09-05] MEDS: Acetaminophen TAB* 325 MG PO SCH ×3 (05:34→22:32)
[2019-09-05] MEDS ORDERED: NS 0.9% 250 ML* 250 ML ONE ×2 (09:00→15:55)
[2019-09-05] MEDS: Fluticasone NASAL SPRAY 50MCG* 16 gm SPRAY BTL BOTH NARES SCH ×2 (09:11→21:54)
[2019-09-05] MEDS: BuPROPion XL* 300 MG TAB.XL PO SCH (09:12)
[2019-09-05] MEDS: Folic Acid TAB* 1 MG PO SCH (09:12)
[2019-09-05] MEDS: DULoxetine DR CAP* 60 MG CAP.DR PO SCH (09:12)
[2019-09-05] MEDS: Calcium Polycarbophil TAB* 625 MG PO SCH (09:12)
[2019-09-05] MEDS: Cholecalciferol TAB* 1000 UNITS PO SCH (09:12)
[2019-09-05] MEDS: Vitamin THERAPEUTIC TAB PO SCH (09:13)
[2019-09-05] MEDS: Cyanocobalamin TAB* 500 MCG PO SCH (09:13)
[2019-09-05] MEDS: Pantoprazole TAB * 40 MG TAB PO SCH (09:13)
[2019-09-05] MEDS: Calcium/Vitamin D TAB 250/125* TAB PO SCH (09:13)
[2019-09-05] MEDS: Docusate CAP* 100 MG PO SCH ×2 (09:13→22:09)
[2019-09-05] MEDS: Ferrous Sulfate TAB* 325 MG PO SCH (09:13)
[2019-09-05] MEDS: lamoTRIgine TAB(*) 100 MG PO SCH (09:15)
[2019-09-05] MEDS: SOLIFENACIN 10 MG PO SCH (09:15)
[2019-09-05] MEDS: Methenamine Hippurate TAB* 1 GM TAB PO SCH ×2 (09:16→21:53)
[2019-09-05] MEDS: Mirabegron (NF) 25 MG TAB PO SCH (09:17)
[2019-09-05] MEDS: ZINC 50 MG PO SCH (09:17)
[2019-09-05] MEDS: DALFAMPRIDINE 10 MG PO SCH ×2 (09:18→22:09)
[2019-09-05] MEDS: Magnesium Hydroxide LIQ* 30 ML UDC PO SCH ×2 (09:19→21:52)
[2019-09-05] MEDS: Cyclobenzaprine TAB* 10 MG PO PRN ×2 (10:11→16:00)
[2019-09-05] MEDS: traMADol TAB* 50 MG PO PRN (12:25)
[2019-09-05] MEDS: oxyCODONE TAB* 5 MG TAB PO PRN ×3 (14:24→21:52)
--- NOTE | 2019-09-05 15:31 | PN ---
Progress Note - Progress Note Date of Service: 09/05/19 SOAP: Subjective: []Pt seen and examined at bedside. Her ankle pain is improving, does have some shooting nerve pain into the plantar aspect of the foot which is something she gtes at baseline but seems to be aggravated by elevating the leg. Objective: []Gen: NAD, appears well LLE: pin care with 1:1 saline and peroxide completed, redressed with xeroform, kerlix, tg. Pin sites CDI no discharge or erythema. Skin without blistering. Moderate swelling of ankle without wrinkling, improved from yesterday, all compartments of lower leg remain compressible. Significant ecchymosis of medial and also lateral ankle, though less so on the lateral side. Able to f/e MTPs of digits 1-2 with improved ease from yesterday. Lacks sensation throughout LE which is baseline. Foot and toes warm and well perfused cap refill less than two seconds distally, DP2+. Calves supple without palpable cords Assessment: []POD 2 sp ex-fix L ankle trimalleolar fracture dislocation Plan: []NWB LLE Heparin DVT prophylaxis, will stop midnight prior to surgery Keep leg on 8 pillows with ice to reduce swelling. Ok to elevate RLE as well as patient feels this would be more comfortable. 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 She is currently on vancomycin Tentative plan is for surgery Tuesday Vital Signs Temp 97.0 F 09/05/19 12:00 Pulse 65 09/05/19 12:00 Resp 15 09/05/19 14:24 BP 119/65 09/05/19 12:00 Pulse Ox 94 09/05/19 12:00 Intake & Output 09/04/19 09/05/19 09/05/19 18:59 06:59 18:59 Intake Total 1341 1500 1030 Output Total 750 450 400 Balance 591 1050 630 Intake: IV Fluids 336 LR 336 IVPB 285 580 Vancomycin 285 580 Oral 601 457 7972 Output: Contreras 750 450 400 Other: # Bowel Movements 0 0 Laboratory Last Values WBC 9.1 10^3/uL (3.5-10.8) 09/03/19 16:01 RBC 4.50 10^6 /uL (3.70-4.87) 09/03/19 16:01 Hgb 12.2 g/dL (12.0-16.0) 09/04/19 05:05 Hct 36 % (35-47) 09/04/19 05:05 MCV 80 fL (80-97) 09/03/19 16:01 MCH 27 pg (27-31) 09/03/19 16:01 MCHC 33 g/dL (31-36) 09/03/19 16:01 RDW 16 % (10-15) H 09/03/19 16:01 Plt Count 315 10^3/uL (150-450) 09/04/19 05:05 MPV 6.9 fL (7.4-10.4) L 09/04/19 05:05 Neut % (Auto) 73.1 % 09/03/19 16:01 Lymph % (Auto) 17.8 % 09/03/19 16:01 Grundy % (Auto) 7.1 % 09/03/19 16:01 Eos % (Auto) 1.3 % 09/03/19 16:01 Baso % (Auto) 0.7 % 09/03/19 16:01 Absolute Neuts (auto) 6.7 10^3/ul (1.5-7.7) 09/03/19 16:01 Absolute Lymphs (auto) 1.6 10^3/ul (1.0-4.8) 09/03/19 16:01 Absolute Monos (auto) 0.6 10^3/ul (0-0.8) 09/03/19 16:01 Absolute Eos (auto) 0.1 10^3/ul (0-0.6) 09/03/19 16:01 Absolute Basos (auto) 0.1 10^3/ul (0-0.2) 09/03/19 16:01 Absolute Nucleated RBC 0.0 10^3/ul 09/03/19 16:01 Nucleated RBC % 0.0 09/03/19 16:01 INR (Anticoag Therapy) 1.14 (0.82-1.09) H 09/03/19 16:01 Sodium 137 mmol/L (135-145) 09/04/19 05:05 Potassium 4.3 mmol/L (3.5-5.0) 09/04/19 05:05 Chloride 104 mmol/L (101-111) 09/04/19 05:05 Carbon Dioxide 27 mmol/L (22-32) 09/04/19 05:05 Anion Gap 6 mmol/L (2-11) 09/04/19 05:05 BUN 7 mg/dL (6-24) 09/04/19 05:05 Creatinine 0.66 mg/dL (0.51-0.95) 09/04/19 05:05 Est GFR ( Amer) 121.9 (>60) 09/04/19 05:05 Est GFR (Non-Af Amer) 100.8 (>60) 09/04/19 05:05 BUN/Creatinine Ratio 10.6 (8-20) 09/04/19 05:05 Glucose 189 mg/dL (70-100) H 09/04/19 05:05 Calcium 8.8 mg/dL (8.6-10.3) 09/04/19 05:05 Vancomycin Trough 15.5 mcg/mL 09/04/19 15:53 Blood Type O Positive 09/03/19 15:52 Antibody Screen Negative 09/03/19 15:52 <Crystal Mcclendon - Last Filed: 09/05/19 15:31> - Progress Note SOAP: S: Patient's LLE was dropped during a transfer today and since then increased pain. Otherwise, she is doing well. O: Ex-fix was still tight. I tighten it a bit more with a wrench. Left ankle no wrinkling lateral. Bruising medial. No blisters. Still some palsy of the toes, which is new from her fracture dislocation. She is able to flex and extend great toe but not lesser toes. Sensation decreased over lateral foot. No change since yesterday. A/P: Discussed patient timeline to surgery ORIF. In order to minimize risk of infection and wound breakdown, we need to wait until there is some wrinkling. More likely to be next week. Since reduction of fractures is anatomic or nearly anatomic, there is no clear current indication to surgically explore for nerve injury. <Shen Castaneda - Last Filed: 09/05/19 18:57>
[2019-09-05] MEDS: Mometasone 220 MCG MDI INH SCH (17:37)
[2019-09-05] MEDS: traZODone TAB* 50 MG TAB PO SCH (21:52)
[2019-09-05] MEDS: Propranolol TAB* 80 MG PO SCH (21:54)
[2019-09-06] MEDS: Vancomycin(*) 1,500 MG in NS 0.9% 250 ML* 250 ML IVPB SCH ×2 (00:27→08:36)
[2019-09-06] MEDS: Cyclobenzaprine TAB* 10 MG PO PRN (02:34)
[2019-09-06] MEDS: oxyCODONE TAB* 5 MG TAB PO PRN ×3 (02:34→21:43)
[2019-09-06] MEDS: Liothyronine TAB* 25 MCG PO SCH (06:02)
[2019-09-06] MEDS: Acetaminophen TAB* 325 MG PO SCH ×3 (06:02→22:18)
[2019-09-06] MEDS: Heparin VIAL(*) 5000 UNITS/ML VIAL (FIVE THOUSAND) SUBCUT SCH ×3 (06:02→22:19)
[2019-09-06] MEDS: Methenamine Hippurate TAB* 1 GM TAB PO SCH ×2 (08:36→21:46)
[2019-09-06] MEDS: SOLIFENACIN 10 MG PO SCH (08:36)
[2019-09-06] MEDS: Fluticasone NASAL SPRAY 50MCG* 16 gm SPRAY BTL BOTH NARES SCH ×2 (08:37→21:50)
[2019-09-06] MEDS: Ferrous Sulfate TAB* 325 MG PO SCH (08:38)
[2019-09-06] MEDS: Docusate CAP* 100 MG PO SCH ×2 (08:38→21:44)
[2019-09-06] MEDS: Cholecalciferol TAB* 1000 UNITS PO SCH (08:38)
[2019-09-06] MEDS: Folic Acid TAB* 1 MG PO SCH (08:38)
[2019-09-06] MEDS: BuPROPion XL* 300 MG TAB.XL PO SCH (08:38)
[2019-09-06] MEDS: Magnesium Hydroxide LIQ* 30 ML UDC PO SCH ×2 (08:38→21:46)
[2019-09-06] MEDS: Cyanocobalamin TAB* 500 MCG PO SCH (08:39)
[2019-09-06] MEDS: DULoxetine DR CAP* 60 MG CAP.DR PO SCH (08:39)
[2019-09-06] MEDS: Calcium Polycarbophil TAB* 625 MG PO SCH (08:39)
[2019-09-06] MEDS: Pantoprazole TAB * 40 MG TAB PO SCH (08:40)
[2019-09-06] MEDS: lamoTRIgine TAB(*) 100 MG PO SCH (08:40)
[2019-09-06] MEDS: Calcium/Vitamin D TAB 250/125* TAB PO SCH (08:54)
[2019-09-06] MEDS: Mirabegron (NF) 25 MG TAB PO SCH (09:12)
[2019-09-06] MEDS: DALFAMPRIDINE 10 MG PO SCH ×2 (09:12→21:43)
[2019-09-06] MEDS: Vitamin THERAPEUTIC TAB PO SCH (09:13)
[2019-09-06] MEDS: ZINC 50 MG PO SCH (10:21)
[2019-09-06] MEDS: INTERFERON BETA SUBCUT SCH (10:21)
--- NOTE | 2019-09-06 11:57 | PN ---
Progress Note - Progress Note Date of Service: 09/06/19 SOAP: Subjective: []Pt seen at bedside. Her pain is controlled today. Denies CP, SOB, dizziness, nausea. Has been working to move her toes, takes a great deal of concentration but able to move L 1st and 2nd digit, unable to move 3-5. Dr Castaneda tightened nuts on ex-fix last night. Objective: []Gen: NAD, appears well LLE: pin care with 1:1 saline and peroxide completed, redressed with xeroform, kerlix, tg. Pin sites CDI no discharge or erythema. Skin without blistering. Moderate swelling of ankle without wrinkling, unchanged from yesterday, all compartments of lower leg remain compressible. Significant ecchymosis of medial ankle. Able to f/e MTPs of digits 1-2 with improved ease from yesterday. Lacks sensation throughout LE which is baseline. Foot and toes warm and well perfused cap refill less than two seconds distally, DP2+. Calves supple without palpable cords Assessment: []POD 3 sp ex-fix L ankle trimalleolar fracture dislocation Plan: []NWB LLE Heparin DVT prophylaxis, will stop midnight prior to surgery Keep leg on 8 pillows ( elevated as high as she can tolerate) with ice to reduce swelling. Ok to elevate RLE as well as patient feels this would be more comfortable. 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 She is currently on vancomycin Tentative plan is for surgery Tuesday vs next week, will discuss plan with Dr Castaneda today Vital Signs Temp 98.6 F 09/06/19 11:13 Pulse 64 09/06/19 11:13 Resp 16 09/06/19 11:13 BP 118/70 09/06/19 11:13 Pulse Ox 98 09/06/19 11:13 Intake & Output 09/05/19 09/06/19 09/06/19 18:59 06:59 18:59 Intake Total 1350 1155 1019 Output Total 400 750 500 Balance 950 405 519 Intake: IV Fluids 50 29 NS (0.9%) 50 29 IVPB 270 255 250 Vancomycin 270 255 250 Oral 1030 900 740 Output: Urine 500 Contreras 400 750 Laboratory Last Values WBC 9.1 10^3/uL (3.5-10.8) 09/03/19 16:01 RBC 4.50 10^6 /uL (3.70-4.87) 09/03/19 16:01 Hgb 12.2 g/dL (12.0-16.0) 09/04/19 05:05 Hct 36 % (35-47) 09/04/19 05:05 MCV 80 fL (80-97) 09/03/19 16:01 MCH 27 pg (27-31) 09/03/19 16:01 MCHC 33 g/dL (31-36) 09/03/19 16:01 RDW 16 % (10-15) H 09/03/19 16:01 Plt Count 315 10^3/uL (150-450) 09/04/19 05:05 MPV 6.9 fL (7.4-10.4) L 09/04/19 05:05 Neut % (Auto) 73.1 % 09/03/19 16:01 Lymph % (Auto) 17.8 % 09/03/19 16:01 Pierce % (Auto) 7.1 % 09/03/19 16:01 Eos % (Auto) 1.3 % 09/03/19 16:01 Baso % (Auto) 0.7 % 09/03/19 16:01 Absolute Neuts (auto) 6.7 10^3/ul (1.5-7.7) 09/03/19 16:01 Absolute Lymphs (auto) 1.6 10^3/ul (1.0-4.8) 09/03/19 16:01 Absolute Monos (auto) 0.6 10^3/ul (0-0.8) 09/03/19 16:01 Absolute Eos (auto) 0.1 10^3/ul (0-0.6) 09/03/19 16:01 Absolute Basos (auto) 0.1 10^3/ul (0-0.2) 09/03/19 16:01 Absolute Nucleated RBC 0.0 10^3/ul 09/03/19 16:01 Nucleated RBC % 0.0 09/03/19 16:01 INR (Anticoag Therapy) 1.14 (0.82-1.09) H 09/03/19 16:01 Sodium 137 mmol/L (135-145) 09/04/19 05:05 Potassium 4.3 mmol/L (3.5-5.0) 09/04/19 05:05 Chloride 104 mmol/L (101-111) 09/04/19 05:05 Carbon Dioxide 27 mmol/L (22-32) 09/04/19 05:05 Anion Gap 6 mmol/L (2-11) 09/04/19 05:05 BUN 7 mg/dL (6-24) 09/04/19 05:05 Creatinine 0.66 mg/dL (0.51-0.95) 09/04/19 05:05 Est GFR ( Amer) 121.9 (>60) 09/04/19 05:05 Est GFR (Non-Af Amer) 100.8 (>60) 09/04/19 05:05 BUN/Creatinine Ratio 10.6 (8-20) 09/04/19 05:05 Glucose 189 mg/dL (70-100) H 09/04/19 05:05 Calcium 8.8 mg/dL (8.6-10.3) 09/04/19 05:05 Vancomycin Trough 15.5 mcg/mL 09/04/19 15:53 Blood Type O Positive 09/03/19 15:52 Antibody Screen Negative 09/03/19 15:52
[2019-09-06] MEDS ORDERED: SUMAtriptan TAB* 25 MG PO PRN (13:33)
[2019-09-06] MEDS: Ketorolac INJ* 30 MG/ML 1 ML VIAL IV PRN (14:29)
[2019-09-06] MEDS: Mometasone 220 MCG MDI INH SCH (17:41)
[2019-09-06] MEDS: traZODone TAB* 50 MG TAB PO SCH (21:44)
[2019-09-06] MEDS: Propranolol TAB* 80 MG PO SCH (21:45)
[2019-09-06] MEDS: Vancomycin(*) 1,000 MG in NS 0.9% 250 ML* 250 ML IV SCH (22:17)
[2019-09-07] MEDS: Vancomycin(*) 1,000 MG in NS 0.9% 250 ML* 250 ML IV SCH ×3 (06:10→22:48)
[2019-09-07] MEDS: Heparin VIAL(*) 5000 UNITS/ML VIAL (FIVE THOUSAND) SUBCUT SCH ×3 (06:11→22:48)
[2019-09-07] MEDS: Acetaminophen TAB* 325 MG PO SCH ×3 (06:11→22:48)
[2019-09-07] MEDS: Liothyronine TAB* 25 MCG PO SCH (06:17)
[2019-09-07] MEDS: oxyCODONE TAB* 5 MG TAB PO PRN ×3 (07:33→22:56)
[2019-09-07] MEDS: Fluticasone NASAL SPRAY 50MCG* 16 gm SPRAY BTL BOTH NARES SCH ×2 (08:50→20:58)
[2019-09-07] MEDS: Magnesium Hydroxide LIQ* 30 ML UDC PO SCH ×2 (08:53→20:54)
[2019-09-07] MEDS: Cholecalciferol TAB* 1000 UNITS PO SCH (08:54)
[2019-09-07] MEDS: Methenamine Hippurate TAB* 1 GM TAB PO SCH ×2 (08:54→20:59)
[2019-09-07] MEDS: SOLIFENACIN 10 MG PO SCH (08:54)
[2019-09-07] MEDS: Cyclobenzaprine TAB* 10 MG PO PRN ×2 (08:55→15:57)
[2019-09-07] MEDS: Calcium Polycarbophil TAB* 625 MG PO SCH (08:55)
[2019-09-07] MEDS: Docusate CAP* 100 MG PO SCH ×2 (08:56→20:58)
[2019-09-07] MEDS: BuPROPion XL* 300 MG TAB.XL PO SCH (08:56)
[2019-09-07] MEDS: Vitamin THERAPEUTIC TAB PO SCH (08:56)
[2019-09-07] MEDS: Ferrous Sulfate TAB* 325 MG PO SCH (08:57)
[2019-09-07] MEDS: Folic Acid TAB* 1 MG PO SCH (08:57)
[2019-09-07] MEDS: Calcium/Vitamin D TAB 250/125* TAB PO SCH (08:57)
[2019-09-07] MEDS: DULoxetine DR CAP* 60 MG CAP.DR PO SCH (08:57)
[2019-09-07] MEDS: Pantoprazole TAB * 40 MG TAB PO SCH (08:57)
[2019-09-07] MEDS: Cyanocobalamin TAB* 500 MCG PO SCH (08:58)
[2019-09-07] MEDS: lamoTRIgine TAB(*) 100 MG PO SCH (08:58)
[2019-09-07] MEDS: DALFAMPRIDINE 10 MG PO SCH ×2 (09:11→20:58)
[2019-09-07] MEDS: Mirabegron (NF) 25 MG TAB PO SCH (09:11)
[2019-09-07 11:21] LABS: EGFR African American 110.3 (>60); EGFR Non-African American 91.1 (>60)
[2019-09-07] MEDS: Polyethylene Glycol 3350* 17 GM PACKET PO PRN (13:53)
--- NOTE | 2019-09-07 15:24 | PN ---
Progress Note - Progress Note Date of Service: 09/07/19 SOAP: Subjective: [Pt seen at bedside. Her pain is controlled today. Denies CP, SOB, dizziness, nausea. Has been working to move her toes, takes a great deal of concentration but able to move L 1st and 2nd digit, unable to move 3-5. Objective: []Gen: NAD, appears well LLE: pin care with 1:1 saline and peroxide completed, redressed with xeroform, kerlix, tg. Pin sites CDI no discharge or erythema. Skin without blistering. Moderate swelling of ankle without wrinkling, unchanged from yesterday, all compartments of lower leg remain compressible. Significant ecchymosis of medial ankle. Able to f/e MTPs of digits 1-2 with improved ease from yesterday. Lacks sensation throughout LE which is baseline. Foot and toes warm and well perfused cap refill less than two seconds distally, DP2+. One of the kickstand bolts medially is pushing into skin. Dr. Castaneda will assess later today. Calves supple without palpable cords Vital Signs Temp 98.3 F 09/07/19 12:03 Pulse 78 09/07/19 12:03 Resp 16 09/07/19 14:47 BP 122/68 09/07/19 12:03 Pulse Ox 90 09/07/19 12:03 Intake & Output 09/06/19 09/07/19 09/07/19 18:59 06:59 18:59 Intake Total 1019 975 415 Output Total 2300 1450 950 Balance -4055 -055 -067 Intake: IV Fluids 29 30 NS (0.9%) 29 30 IVPB 250 255 265 Vancomycin 250 255 265 Oral 740 720 120 Output: Urine 500 Contreras 1800 1450 950 Other: # Bowel Movements 0 1 0 Estimated Stool Amount Medium Medium Assessment: []POD 4 sp ex-fix L ankle trimalleolar fracture dislocation Plan: []NWB LLE Heparin DVT prophylaxis, will stop midnight prior to surgery Keep leg on 8 pillows ( elevated as high as she can tolerate) with ice to reduce swelling. Ok to elevate RLE as well as patient feels this would be more comfortable. 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 She is currently on vancomycin Tentative plan is for surgery next week as pt continues to be very swollen.
[2019-09-07] MEDS: traMADol TAB* 50 MG PO PRN (15:57)
[2019-09-07] MEDS: Mometasone 220 MCG MDI INH SCH (17:21)
[2019-09-07] MEDS: Ketorolac INJ* 30 MG/ML 1 ML VIAL IV PRN (20:55)
[2019-09-07] MEDS: traZODone TAB* 50 MG TAB PO SCH (20:56)
[2019-09-07] MEDS: tiZANidine TAB* 2 MG PO PRN (20:56)
[2019-09-07] MEDS: Propranolol TAB* 80 MG PO SCH (20:57)
[2019-09-08] MEDS ORDERED: Vancomycin Trough Check NOTE FOLLOW UP ONE (06:00)
[2019-09-08] MEDS: Vancomycin(*) 1,000 MG in NS 0.9% 250 ML* 250 ML IV SCH ×3 (06:38→21:51)
[2019-09-08] MEDS: Liothyronine TAB* 25 MCG PO SCH (06:39)
[2019-09-08] MEDS: Acetaminophen TAB* 325 MG PO SCH ×3 (06:39→21:51)
[2019-09-08] MEDS: Heparin VIAL(*) 5000 UNITS/ML VIAL (FIVE THOUSAND) SUBCUT SCH ×3 (06:39→21:50)
[2019-09-08] MEDS: oxyCODONE TAB* 5 MG TAB PO PRN ×4 (06:39→20:52)
[2019-09-08] MEDS: Magnesium Hydroxide LIQ* 30 ML UDC PO SCH ×2 (10:31→20:55)
[2019-09-08] MEDS: DULoxetine DR CAP* 60 MG CAP.DR PO SCH (10:32)
[2019-09-08] MEDS: Folic Acid TAB* 1 MG PO SCH (10:32)
[2019-09-08] MEDS: Calcium Polycarbophil TAB* 625 MG PO SCH (10:32)
[2019-09-08] MEDS: Cholecalciferol TAB* 1000 UNITS PO SCH (10:32)
[2019-09-08] MEDS: Ferrous Sulfate TAB* 325 MG PO SCH (10:32)
[2019-09-08] MEDS: lamoTRIgine TAB(*) 100 MG PO SCH (10:33)
[2019-09-08] MEDS: Calcium/Vitamin D TAB 250/125* TAB PO SCH (10:34)
[2019-09-08] MEDS: SOLIFENACIN 10 MG PO SCH (10:35)
[2019-09-08] MEDS: BuPROPion XL* 300 MG TAB.XL PO SCH (10:35)
[2019-09-08] MEDS: Pantoprazole TAB * 40 MG TAB PO SCH (10:35)
[2019-09-08] MEDS: Vitamin THERAPEUTIC TAB PO SCH (10:35)
[2019-09-08] MEDS: Methenamine Hippurate TAB* 1 GM TAB PO SCH ×2 (10:35→20:56)
[2019-09-08] MEDS: Cyanocobalamin TAB* 500 MCG PO SCH (10:35)
[2019-09-08] MEDS: Docusate CAP* 100 MG PO SCH ×2 (10:44→20:55)
[2019-09-08] MEDS: DALFAMPRIDINE 10 MG PO SCH ×2 (10:44→20:49)
[2019-09-08] MEDS: Fluticasone NASAL SPRAY 50MCG* 16 gm SPRAY BTL BOTH NARES SCH ×2 (10:46→20:54)
[2019-09-08] MEDS: Mirabegron (NF) 25 MG TAB PO SCH (10:51)
--- NOTE | 2019-09-08 11:59 | PN ---
Progress Note - Progress Note Date of Service: 09/08/19 Note: POD 4 : s/p ex-fix L ankle trimalleolar fracture dislocation Pt resting comfortably in bed with pain well controlled. Denies CP, SOB, dizziness, nausea. Ankle is elevated and she has been working to move her toes. She can move all digits today. LLE: Pin care performed with 1:1 saline and peroxide, then redressed with xeroform, kerlix, and Amarjit. Pin sites are CDI without discharge or erythema. Skin without blistering. Moderate edema about the foot and ankle with maturing ecchymosis medially. Able to flex and extend the digits. Absent sensation of lower leg and foot at baseline. Foot and toes warm and well perfused, with brisk cap refill. DP2+. Calves supple and non-tender. Patient to remain NWB LLE. Heparin DVT prophylaxis to be stopped midnight prior to surgery. Keep leg on 8 pillows (elevated as high as tolerated) with ice to reduce swelling. Ok to elevate RLE as well as patient feels this would be more comfortable. 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 She is currently on vancomycin. Tentative plan is for surgery next week as pt continues to be very swollen.
[2019-09-08] MEDS: Mometasone 220 MCG MDI INH SCH (18:30)
[2019-09-08] MEDS: Propranolol TAB* 80 MG PO SCH (20:56)
[2019-09-08] MEDS: traZODone TAB* 50 MG TAB PO SCH (20:56)
[2019-09-09] MEDS: oxyCODONE TAB* 5 MG TAB PO PRN ×3 (04:04→20:12)
[2019-09-09] MEDS: Acetaminophen TAB* 325 MG PO SCH ×3 (05:57→22:17)
[2019-09-09] MEDS: Liothyronine TAB* 25 MCG PO SCH (05:57)
[2019-09-09] MEDS: Vancomycin(*) 1,000 MG in NS 0.9% 250 ML* 250 ML IV SCH ×3 (05:57→22:17)
[2019-09-09] MEDS: Heparin VIAL(*) 5000 UNITS/ML VIAL (FIVE THOUSAND) SUBCUT SCH ×3 (05:58→22:18)
[2019-09-09] MEDS: Methenamine Hippurate TAB* 1 GM TAB PO SCH ×2 (08:41→20:12)
[2019-09-09] MEDS: Magnesium Hydroxide LIQ* 30 ML UDC PO SCH ×2 (08:42→20:13)
[2019-09-09] MEDS: Fluticasone NASAL SPRAY 50MCG* 16 gm SPRAY BTL BOTH NARES SCH ×2 (08:42→20:14)
[2019-09-09] MEDS: SOLIFENACIN 10 MG PO SCH (08:42)
[2019-09-09] MEDS: Calcium/Vitamin D TAB 250/125* TAB PO SCH (08:42)
[2019-09-09] MEDS: Cholecalciferol TAB* 1000 UNITS PO SCH (08:42)
[2019-09-09] MEDS: Vitamin THERAPEUTIC TAB PO SCH (08:43)
[2019-09-09] MEDS: DULoxetine DR CAP* 60 MG CAP.DR PO SCH (08:43)
[2019-09-09] MEDS: Calcium Polycarbophil TAB* 625 MG PO SCH (08:43)
[2019-09-09] MEDS: Docusate CAP* 100 MG PO SCH ×2 (08:43→20:11)
[2019-09-09] MEDS: Pantoprazole TAB * 40 MG TAB PO SCH (08:43)
[2019-09-09] MEDS: Ferrous Sulfate TAB* 325 MG PO SCH (08:43)
[2019-09-09] MEDS: Folic Acid TAB* 1 MG PO SCH (08:43)
[2019-09-09] MEDS: Cyanocobalamin TAB* 500 MCG PO SCH (08:44)
[2019-09-09] MEDS: lamoTRIgine TAB(*) 100 MG PO SCH (08:44)
[2019-09-09] MEDS: BuPROPion XL* 300 MG TAB.XL PO SCH (09:00)
--- NOTE | 2019-09-09 10:18 | PN ---
Progress Note - Progress Note Date of Service: 09/09/19 Note: POD 5 : s/p ex-fix L ankle trimalleolar fracture dislocation Pt resting comfortably in bed with pain well controlled. She had some intermittent overnight pain that disturbed her sleep, but it has resolved. Denies CP, SOB, dizziness, nausea. Ankle is elevated and she has been working to move her toes. LLE: Pin care performed with 1:1 saline and peroxide, then redressed with xeroform, kerlix, and Amarjit. Pin sites are CDI without discharge or erythema. Skin without blistering. Moderate edema about the foot and ankle with maturing ecchymosis medially. Able to flex and extend the digits against resistance. Absent sensation of lower leg and foot at baseline. Foot and toes warm and well perfused, with brisk cap refill. DP2+. Calves supple and non-tender. Patient to remain NWB LLE. Heparin DVT prophylaxis to be stopped midnight prior to surgery. Continue elevation of leg on pillows as tolerated with ice to reduce swelling. Continue vancomycin and pain management. Tentative plan for surgery this week depending on swelling.
[2019-09-09] MEDS: DALFAMPRIDINE 10 MG PO SCH ×2 (10:44→20:13)
[2019-09-09] MEDS: Mirabegron (NF) 25 MG TAB PO SCH (10:44)
[2019-09-09] MEDS: INTERFERON BETA SUBCUT SCH (10:44)
--- NOTE | 2019-09-09 16:00 | PN ---
Progress Note - Progress Note Date of Service: 09/09/19 SOAP: Subjective: 39 yo W who weighs 380 lbs, BMI 380 with some degree of neuropathy from lumbar spine surgery versus MS, who is now POD 6 from ex-fix of left ankle trimall fx dislocation. Pain decreasing. Elevated on 6+ pillows in bed left lower extremity. Objective: L ankle: - No pin site drainage or erythema - Still moderate swelling ankle. No blisters. - No wrinkling skin posterolateral ankle - No wrinkling skin medial ankle and some ecchymosis present there - Sensation reduced lateral foot, but improving - Patient able to flex and extend 1st and 2nd toes, improved. Toes clawed more in left foot than right. Selected Entries 09/09/19 08:30 Temperature 98.1 F Pulse Rate 78 Respiratory 16 Rate Blood Pressure 112/60 (mmHg) O2 Sat by Pulse 93 Oximetry Assessment: POD 6 ex-fix left ankle trimall fracture dislocation Plan: - Relatively quick time from injury to anatomic reduction in the OR coupled with excellent lower extremity elevation have prevents fracture blistering, surely a concern in a fracture that was as displaced as this patient's at the time of presentation. - Ankle is still too swollen for surgery - Discussed surgery Tuesday, Tuesday, or next week for definitive ORIF, depending on skin condition - Continue ex-fix, pin site care, extreme left lower extremity elevation, NWB left lower extremity - Anticoagulation with heparin - Prophylaxis with Vanc per ID service
[2019-09-09] MEDS: Mometasone 220 MCG MDI INH SCH (18:01)
[2019-09-09] MEDS: traZODone TAB* 50 MG TAB PO SCH (20:11)
[2019-09-09] MEDS: Propranolol TAB* 80 MG PO SCH (20:16)
[2019-09-09] MEDS: tiZANidine TAB* 2 MG PO PRN (22:17)
[2019-09-09] MEDS: traMADol TAB* 50 MG PO PRN (22:18)
[2019-09-10] MEDS: oxyCODONE TAB* 5 MG TAB PO PRN ×4 (05:47→22:02)
[2019-09-10] MEDS: Liothyronine TAB* 25 MCG PO SCH (05:48)
[2019-09-10] MEDS: Acetaminophen TAB* 325 MG PO SCH ×3 (05:48→22:02)
[2019-09-10] MEDS: Vancomycin(*) 1,000 MG in NS 0.9% 250 ML* 250 ML IV SCH ×3 (05:50→22:04)
[2019-09-10] MEDS: Heparin VIAL(*) 5000 UNITS/ML VIAL (FIVE THOUSAND) SUBCUT SCH ×3 (05:52→22:03)
[2019-09-10] MEDS: Cholecalciferol TAB* 1000 UNITS PO SCH (10:34)
[2019-09-10] MEDS: Docusate CAP* 100 MG PO SCH ×2 (10:34→21:00)
[2019-09-10] MEDS: BuPROPion XL* 300 MG TAB.XL PO SCH (10:37)
[2019-09-10] MEDS: Folic Acid TAB* 1 MG PO SCH (10:37)
[2019-09-10] MEDS: Calcium Polycarbophil TAB* 625 MG PO SCH (10:38)
[2019-09-10] MEDS: Vitamin THERAPEUTIC TAB PO SCH (10:39)
[2019-09-10] MEDS: DULoxetine DR CAP* 60 MG CAP.DR PO SCH (10:39)
[2019-09-10] MEDS: Ferrous Sulfate TAB* 325 MG PO SCH (10:39)
[2019-09-10] MEDS: Fluticasone NASAL SPRAY 50MCG* 16 gm SPRAY BTL BOTH NARES SCH ×2 (10:40→21:02)
[2019-09-10] MEDS: lamoTRIgine TAB(*) 100 MG PO SCH (10:40)
[2019-09-10] MEDS: Calcium/Vitamin D TAB 250/125* TAB PO SCH (10:41)
[2019-09-10] MEDS: Pantoprazole TAB * 40 MG TAB PO SCH (10:42)
[2019-09-10] MEDS: Magnesium Hydroxide LIQ* 30 ML UDC PO SCH ×2 (10:42→21:01)
[2019-09-10] MEDS: Cyanocobalamin TAB* 500 MCG PO SCH (10:42)
[2019-09-10] MEDS: DALFAMPRIDINE 10 MG PO SCH ×2 (10:43→20:55)
[2019-09-10] MEDS: Methenamine Hippurate TAB* 1 GM TAB PO SCH ×2 (10:43→21:01)
[2019-09-10] MEDS: SOLIFENACIN 10 MG PO SCH (10:45)
[2019-09-10] MEDS: Mirabegron (NF) 25 MG TAB PO SCH (10:45)
[2019-09-10] MEDS: traMADol TAB* 50 MG PO PRN (13:02)
--- NOTE | 2019-09-10 16:35 | PN ---
Progress Note - Progress Note Date of Service: 09/10/19 SOAP: Subjective: []Pt seen and examined at bedside. She is feeling well without CP, SOB, dizziness or nausea. Pain of LLE improving. She has developed a cough with mucus production. Objective: []Gen: NAD, nontoxic appearing L ankle: Pin site care with 1:1 peroxide, saline. - No pin site drainage or erythema - Still moderate swelling ankle without blistering - No wrinkling skin posterolateral ankle - No wrinkling skin medial ankle and some ecchymosis remains present there - Patient able to flex and extend 1st, 2nd, 3rd toes, improved. Toes remain clawed more in left foot than right. Selected Entries 09/09/19 08:30 Temperature 98.1 F Pulse Rate 78 Respiratory 16 Rate Blood Pressure 112/60 (mmHg) O2 Sat by Pulse 93 Oximetry Assessment: POD 7 ex-fix left ankle trimall fracture dislocation Plan: Cont vancomycin Cont heparin DVT prophy Contreras cath removed today, patient will resume straight cathing herself now that pain is tolerable for her to be able to do so Incentive spirometer - if any SOB, decreased O2 sats, worsening cough will CXR Plan for OR Tuesday Dr Castaneda CT scan ordered today, Dr Castaneda to review Vital Signs Temp 98.5 F 09/10/19 15:30 Pulse 64 09/10/19 15:30 Resp 18 09/10/19 15:30 BP 126/84 09/10/19 15:30 Pulse Ox 94 09/10/19 15:30 Intake & Output 09/09/19 09/10/19 09/10/19 18:59 06:59 18:59 Intake Total 350 350 Output Total 1500 1450 300 Balance -1500 -1100 50 Intake: IVPB 250 Vancomycin 250 Oral 100 350 Output: Contreras 1500 1450 300 Other: # Bowel Movements 1 0 Estimated Stool Amount Medium # Voids 0 Laboratory Last Values WBC 9.1 10^3/uL (3.5-10.8) 09/03/19 16:01 RBC 4.50 10^6 /uL (3.70-4.87) 09/03/19 16:01 Hgb 12.2 g/dL (12.0-16.0) 09/04/19 05:05 Hct 36 % (35-47) 09/04/19 05:05 MCV 80 fL (80-97) 09/03/19 16:01 MCH 27 pg (27-31) 09/03/19 16:01 MCHC 33 g/dL (31-36) 09/03/19 16:01 RDW 16 % (10-15) H 09/03/19 16:01 Plt Count 315 10^3/uL (150-450) 09/04/19 05:05 MPV 6.9 fL (7.4-10.4) L 09/04/19 05:05 Neut % (Auto) 73.1 % 09/03/19 16:01 Lymph % (Auto) 17.8 % 09/03/19 16:01 [place] % (Auto) 7.1 % 09/03/19 16:01 Eos % (Auto) 1.3 % 09/03/19 16:01 Baso % (Auto) 0.7 % 09/03/19 16:01 Absolute Neuts (auto) 6.7 10^3/ul (1.5-7.7) 09/03/19 16:01 Absolute Lymphs (auto) 1.6 10^3/ul (1.0-4.8) 09/03/19 16:01 Absolute Monos (auto) 0.6 10^3/ul (0-0.8) 09/03/19 16:01 Absolute Eos (auto) 0.1 10^3/ul (0-0.6) 09/03/19 16:01 Absolute Basos (auto) 0.1 10^3/ul (0-0.2) 09/03/19 16:01 Absolute Nucleated RBC 0.0 10^3/ul 09/03/19 16:01 Nucleated RBC % 0.0 09/03/19 16:01 INR (Anticoag Therapy) 1.14 (0.82-1.09) H 09/03/19 16:01 Sodium 137 mmol/L (135-145) 09/04/19 05:05 Potassium 4.3 mmol/L (3.5-5.0) 09/04/19 05:05 Chloride 104 mmol/L (101-111) 09/04/19 05:05 Carbon Dioxide 27 mmol/L (22-32) 09/04/19 05:05 Anion Gap 6 mmol/L (2-11) 09/04/19 05:05 BUN 7 mg/dL (6-24) 09/04/19 05:05 Creatinine 0.72 mg/dL (0.51-0.95) 09/07/19 10:45 Est GFR ( Amer) 110.3 (>60) 09/07/19 10:45 Est GFR (Non-Af Amer) 91.1 (>60) 09/07/19 10:45 BUN/Creatinine Ratio 10.6 (8-20) 09/04/19 05:05 Glucose 189 mg/dL (70-100) H 09/04/19 05:05 Calcium 8.8 mg/dL (8.6-10.3) 09/04/19 05:05 Vancomycin Trough 12.6 mcg/mL 09/08/19 04:53 Random Vancomycin 22.6 mcg/mL 09/06/19 14:20 Blood Type O Positive 09/03/19 15:52 Antibody Screen Negative 09/03/19 15:52
[2019-09-10] MEDS ORDERED: oxyCODONE TAB* 5 MG TAB PO PRN (17:31)
[2019-09-10] MEDS: tiZANidine TAB* 2 MG PO PRN (19:40)
[2019-09-10] MEDS: Mometasone 220 MCG MDI INH SCH ×2 (19:57→20:02)
[2019-09-10] MEDS: traZODone TAB* 50 MG TAB PO SCH (20:59)
[2019-09-10] MEDS: Propranolol TAB* 80 MG PO SCH (20:59)
[2019-09-11] MEDS ORDERED: Vancomycin Trough Check NOTE FOLLOW UP ONE (05:30)
[2019-09-11 05:36] LABS: EGFR African American 121.9 (>60); EGFR Non-African American 100.8 (>60)
[2019-09-11 05:41] LABS: Vancomycin Trough 12.5 mcg/mL
[2019-09-11] MEDS: oxyCODONE TAB* 5 MG TAB PO PRN ×4 (05:57→18:57)
[2019-09-11] MEDS: Liothyronine TAB* 25 MCG PO SCH (05:57)
[2019-09-11] MEDS: Acetaminophen TAB* 325 MG PO SCH ×3 (05:57→22:05)
[2019-09-11] MEDS: Heparin VIAL(*) 5000 UNITS/ML VIAL (FIVE THOUSAND) SUBCUT SCH ×3 (05:58→22:06)
[2019-09-11] MEDS: Vancomycin(*) 1,000 MG in NS 0.9% 250 ML* 250 ML IV SCH ×3 (05:59→22:06)
[2019-09-11] MEDS: DALFAMPRIDINE 10 MG PO SCH ×2 (07:45→21:13)
[2019-09-11] MEDS: Mirabegron (NF) 25 MG TAB PO SCH (07:46)
[2019-09-11] MEDS: Magnesium Hydroxide LIQ* 30 ML UDC PO SCH ×2 (07:46→21:05)
[2019-09-11] MEDS: Cholecalciferol TAB* 1000 UNITS PO SCH (08:30)
[2019-09-11] MEDS: Folic Acid TAB* 1 MG PO SCH (08:30)
[2019-09-11] MEDS: Fluticasone NASAL SPRAY 50MCG* 16 gm SPRAY BTL BOTH NARES SCH ×2 (08:30→21:05)
[2019-09-11] MEDS: Cyanocobalamin TAB* 500 MCG PO SCH (08:30)
[2019-09-11] MEDS: BuPROPion XL* 300 MG TAB.XL PO SCH (08:30)
[2019-09-11] MEDS: Pantoprazole TAB * 40 MG TAB PO SCH (08:31)
[2019-09-11] MEDS: Calcium Polycarbophil TAB* 625 MG PO SCH (08:31)
[2019-09-11] MEDS: DULoxetine DR CAP* 60 MG CAP.DR PO SCH (08:31)
[2019-09-11] MEDS: Vitamin THERAPEUTIC TAB PO SCH (08:31)
[2019-09-11] MEDS: Calcium/Vitamin D TAB 250/125* TAB PO SCH (08:31)
[2019-09-11] MEDS: lamoTRIgine TAB(*) 100 MG PO SCH (08:31)
[2019-09-11] MEDS: Ferrous Sulfate TAB* 325 MG PO SCH (08:31)
[2019-09-11] MEDS: Docusate CAP* 100 MG PO SCH ×2 (08:32→21:04)
[2019-09-11] MEDS: SOLIFENACIN 10 MG PO SCH (08:32)
[2019-09-11] MEDS: Methenamine Hippurate TAB* 1 GM TAB PO SCH ×2 (08:32→21:04)
[2019-09-11] MEDS: Mometasone 220 MCG MDI INH SCH (19:47)
[2019-09-11] MEDS: INTERFERON BETA SUBCUT SCH (20:24)
[2019-09-11] MEDS: traZODone TAB* 50 MG TAB PO SCH (21:04)
[2019-09-11] MEDS: Propranolol TAB* 80 MG PO SCH (21:04)
[2019-09-12] MEDS: oxyCODONE TAB* 5 MG TAB PO PRN ×4 (00:28→21:18)
[2019-09-12 06:10] LABS: Hematocrit 34 % (35-47); Mean Corpuscular HGB Conc 33 g/dL (31-36); Mean Corpuscular Hemoglobin 26 pg (27-31); Mean Corpuscular Volume 81 fL (80-97); Mean Platelet Volume 6.9 fL (7.4-10.4); Platelet Count 335 10^3/uL (150-450); Red Blood Count 4.16 10^6 /uL (3.70-4.87); Red Cell Distribution Width 16 % (10-15); White Blood Count 6.4 10^3/uL (3.5-10.8)
[2019-09-12 06:26] LABS: BUN/Creatinine Ratio 11.4 (8-20); EGFR African American 113.9 (>60); EGFR Non-African American 94.2 (>60); Potassium 4.3 mmol/L (3.5-5.0)
[2019-09-12] MEDS: Liothyronine TAB* 25 MCG PO SCH (06:27)
[2019-09-12] MEDS: Acetaminophen TAB* 325 MG PO SCH ×3 (06:27→21:16)
[2019-09-12] MEDS: Heparin VIAL(*) 5000 UNITS/ML VIAL (FIVE THOUSAND) SUBCUT SCH ×3 (06:27→21:20)
[2019-09-12] MEDS: Vancomycin(*) 1,000 MG in NS 0.9% 250 ML* 250 ML IV SCH (06:51)
[2019-09-12 07:34] LABS: ABS Basophils 0.1 10^3/ul (0-0.2); ABS Eosinophils 0.3 10^3/ul (0-0.6); ABS Monocytes 0.7 10^3/ul (0-0.8); ABS Neutrophils 4.3 10^3/ul (1.5-7.7); Eosinophil % 5.3 %; Lymphocyte % 15.2 %; Nucleated Red Blood Cells % 0.1
[2019-09-12] MEDS: Fluticasone NASAL SPRAY 50MCG* 16 gm SPRAY BTL BOTH NARES SCH ×2 (09:32→21:13)
[2019-09-12] MEDS: DALFAMPRIDINE 10 MG PO SCH ×2 (09:32→21:38)
[2019-09-12] MEDS: Mirabegron (NF) 25 MG TAB PO SCH (09:32)
[2019-09-12] MEDS: Magnesium Hydroxide LIQ* 30 ML UDC PO SCH ×2 (09:33→20:56)
[2019-09-12] MEDS: Methenamine Hippurate TAB* 1 GM TAB PO SCH ×2 (09:33→21:17)
[2019-09-12] MEDS: Cyanocobalamin TAB* 500 MCG PO SCH (09:34)
[2019-09-12] MEDS: Calcium/Vitamin D TAB 250/125* TAB PO SCH (09:34)
[2019-09-12] MEDS: Cholecalciferol TAB* 1000 UNITS PO SCH (09:34)
[2019-09-12] MEDS: BuPROPion XL* 300 MG TAB.XL PO SCH (09:34)
[2019-09-12] MEDS: Vitamin THERAPEUTIC TAB PO SCH (09:34)
[2019-09-12] MEDS: Docusate CAP* 100 MG PO SCH ×2 (09:34→21:15)
[2019-09-12] MEDS: Calcium Polycarbophil TAB* 625 MG PO SCH (09:34)
[2019-09-12] MEDS: DULoxetine DR CAP* 60 MG CAP.DR PO SCH (09:34)
[2019-09-12] MEDS: Folic Acid TAB* 1 MG PO SCH (09:35)
[2019-09-12] MEDS: lamoTRIgine TAB(*) 100 MG PO SCH (09:35)
[2019-09-12] MEDS: Pantoprazole TAB * 40 MG TAB PO SCH (09:35)
[2019-09-12] MEDS: Ferrous Sulfate TAB* 325 MG PO SCH (09:35)
[2019-09-12] MEDS: SOLIFENACIN 10 MG PO SCH (09:35)
--- NOTE | 2019-09-12 10:50 | PN ---
Progress Note - Progress Note Date of Service: 09/12/19 SOAP: Subjective: []Pt seen and examined at bedside. Pain is well controlled. Numbness of plantar foot has resolved and sensation is back to baseline. Cough unchanged, no CP or SOB. Objective: [] Gen: NAD, nontoxic appearing L ankle: Pin site care completed with 1:1 peroxide, saline. No pin site drainage or erythema. Still moderate swelling ankle without b Calves supple and nontender Assessment: []SP Ex Fix L ankle Plan: []NWB LLE heparin 5000 u sq qd q 8 hr. Stop midnight prior to surgery Plan for surgery Tuesday, ORIF Per ID vanco stopped today, will make Dr Castaneda aware Cont daily pin care Vital Signs Temp 98.3 F 09/12/19 08:41 Pulse 72 09/12/19 08:41 Resp 18 09/12/19 09:45 BP 130/65 09/12/19 08:41 Pulse Ox 92 09/12/19 08:41 Intake & Output 09/11/19 09/12/19 09/12/19 18:59 06:59 18:59 Intake Total 1055 1760 660 Output Total 1400 1050 675 Balance -345 710 -15 Intake: IV Fluids 309 300 NS (0.9%) 20 20 Vancomycin 289 280 IVPB 266 Vancomycin 266 Oral 480 1760 360 Output: Urine 900 500 Straight Cath 500 550 675 Other: Estimated Void Medium # Bowel Movements 0 # Voids 1 Laboratory Last Values WBC 6.4 10^3/uL (3.5-10.8) 09/12/19 05:55 RBC 4.16 10^6 /uL (3.70-4.87) 09/12/19 05:55 Hgb 11.0 g/dL (12.0-16.0) L 09/12/19 05:55 Hct 34 % (35-47) L 09/12/19 05:55 MCV 81 fL (80-97) 09/12/19 05:55 MCH 26 pg (27-31) L 09/12/19 05:55 MCHC 33 g/dL (31-36) 09/12/19 05:55 RDW 16 % (10-15) H 09/12/19 05:55 Plt Count 335 10^3/uL (150-450) 09/12/19 05:55 MPV 6.9 fL (7.4-10.4) L 09/12/19 05:55 Neut % (Auto) 67.5 % 09/12/19 05:55 Lymph % (Auto) 15.2 % 09/12/19 05:55 [place] % (Auto) 11.2 % 09/12/19 05:55 Eos % (Auto) 5.3 % 09/12/19 05:55 Baso % (Auto) 0.8 % 09/12/19 05:55 Absolute Neuts (auto) 4.3 10^3/ul (1.5-7.7) 09/12/19 05:55 Absolute Lymphs (auto) 1.0 10^3/ul (1.0-4.8) 09/12/19 05:55 Absolute Monos (auto) 0.7 10^3/ul (0-0.8) 09/12/19 05:55 Absolute Eos (auto) 0.3 10^3/ul (0-0.6) 09/12/19 05:55 Absolute Basos (auto) 0.1 10^3/ul (0-0.2) 09/12/19 05:55 Absolute Nucleated RBC 0.0 10^3/ul 09/12/19 05:55 Neutrophils % 67.0 % 09/12/19 05:55 Lymphocytes % 17.0 % 09/12/19 05:55 Monocytes % 13.0 % 09/12/19 05:55 Eosinophils % 3.0 % 09/12/19 05:55 Nucleated RBC % 0.1 09/12/19 05:55 Normal RBC Morphology Normal (Normal) 09/12/19 05:55 INR (Anticoag Therapy) 1.14 (0.82-1.09) H 09/03/19 16:01 Sodium 137 mmol/L (135-145) 09/12/19 05:55 Potassium 4.3 mmol/L (3.5-5.0) 09/12/19 05:55 Chloride 101 mmol/L (101-111) 09/12/19 05:55 Carbon Dioxide 30 mmol/L (22-32) 09/12/19 05:55 Anion Gap 6 mmol/L (2-11) 09/12/19 05:55 BUN 8 mg/dL (6-24) 09/12/19 05:55 Creatinine 0.70 mg/dL (0.51-0.95) 09/12/19 05:55 Est GFR ( Amer) 113.9 (>60) 09/12/19 05:55 Est GFR (Non-Af Amer) 94.2 (>60) 09/12/19 05:55 BUN/Creatinine Ratio 11.4 (8-20) 09/12/19 05:55 Glucose 87 mg/dL (70-100) 09/12/19 05:55 Calcium 9.0 mg/dL (8.6-10.3) 09/12/19 05:55 Vancomycin Trough 12.5 mcg/mL 09/11/19 05:13 Random Vancomycin 22.6 mcg/mL 09/06/19 14:20 Blood Type O Positive 09/03/19 15:52 Antibody Screen Negative 09/03/19 15:52
[2019-09-12] MEDS: Polyethylene Glycol 3350* 17 GM PACKET PO PRN (12:05)
[2019-09-12] MEDS: Mometasone 220 MCG MDI INH SCH (19:25)
[2019-09-12] MEDS: traZODone TAB* 50 MG TAB PO SCH (21:15)
[2019-09-12] MEDS: Propranolol TAB* 80 MG PO SCH (21:16)
[2019-09-13] MEDS: Liothyronine TAB* 25 MCG PO SCH (06:38)
[2019-09-13] MEDS: Acetaminophen TAB* 325 MG PO SCH ×3 (06:38→21:29)
[2019-09-13] MEDS: Heparin VIAL(*) 5000 UNITS/ML VIAL (FIVE THOUSAND) SUBCUT SCH ×3 (06:39→21:36)
--- NOTE | 2019-09-13 09:02 | PN ---
Progress Note - Progress Note Date of Service: 09/13/19 SOAP: Subjective: []Pt seen and examined at bedside. She feels well without complaints. No CP, SOB , dizziness, nausea. Cough has resolved. Objective: [] Gen: NAD, nontoxic appearing L ankle: Pin site care completed with 1:1 peroxide, saline. No pin site drainage or erythema. Still moderate swelling ankle, mild ecchymosis remains. Sensation has returned to baseline. Able to f/e all MTPs. Cap refill less than two seconds distally, dp2+ Calves supple and nontender Assessment: []SP Ex Fix L ankle Plan: []NWB LLE heparin 5000 u sq qd q 8 hr. Stop midnight for surgery tomorrow. Anticipate she can be on lovenox rather after surgery Plan for surgery tomorrow, ORIF Off of vanco for now, will need pre/post op vanco Cont daily pin care Vital Signs Temp 97.5 F 09/13/19 08:03 Pulse 75 09/13/19 08:03 Resp 18 09/13/19 08:03 BP 125/60 09/13/19 08:03 Pulse Ox 95 09/13/19 08:03 Intake & Output 09/12/19 09/13/19 09/13/19 18:59 06:59 18:59 Intake Total 1459 1860 Output Total 20040 Balance -545 510 Intake: IV Fluids 300 NS (0.9%) 20 Vancomycin 280 Oral 1160 1860 Output: Urine 1100 0 Straight Cath 905 1350 Other: Estimated Void Medium Date of Last Bowel 09/12/19 Movement # Bowel Movements 1 Estimated Stool Amount Large # Voids 1 Laboratory Last Values WBC 6.4 10^3/uL (3.5-10.8) 09/12/19 05:55 RBC 4.16 10^6 /uL (3.70-4.87) 09/12/19 05:55 Hgb 11.0 g/dL (12.0-16.0) L 09/12/19 05:55 Hct 34 % (35-47) L 09/12/19 05:55 MCV 81 fL (80-97) 09/12/19 05:55 MCH 26 pg (27-31) L 09/12/19 05:55 MCHC 33 g/dL (31-36) 09/12/19 05:55 RDW 16 % (10-15) H 09/12/19 05:55 Plt Count 335 10^3/uL (150-450) 09/12/19 05:55 MPV 6.9 fL (7.4-10.4) L 09/12/19 05:55 Neut % (Auto) 67.5 % 09/12/19 05:55 Lymph % (Auto) 15.2 % 09/12/19 05:55 [place] % (Auto) 11.2 % 09/12/19 05:55 Eos % (Auto) 5.3 % 09/12/19 05:55 Baso % (Auto) 0.8 % 09/12/19 05:55 Absolute Neuts (auto) 4.3 10^3/ul (1.5-7.7) 09/12/19 05:55 Absolute Lymphs (auto) 1.0 10^3/ul (1.0-4.8) 09/12/19 05:55 Absolute Monos (auto) 0.7 10^3/ul (0-0.8) 09/12/19 05:55 Absolute Eos (auto) 0.3 10^3/ul (0-0.6) 09/12/19 05:55 Absolute Basos (auto) 0.1 10^3/ul (0-0.2) 09/12/19 05:55 Absolute Nucleated RBC 0.0 10^3/ul 09/12/19 05:55 Neutrophils % 67.0 % 09/12/19 05:55 Lymphocytes % 17.0 % 09/12/19 05:55 Monocytes % 13.0 % 09/12/19 05:55 Eosinophils % 3.0 % 09/12/19 05:55 Nucleated RBC % 0.1 09/12/19 05:55 Normal RBC Morphology Normal (Normal) 09/12/19 05:55 INR (Anticoag Therapy) 1.14 (0.82-1.09) H 09/03/19 16:01 Sodium 137 mmol/L (135-145) 09/12/19 05:55 Potassium 4.3 mmol/L (3.5-5.0) 09/12/19 05:55 Chloride 101 mmol/L (101-111) 09/12/19 05:55 Carbon Dioxide 30 mmol/L (22-32) 09/12/19 05:55 Anion Gap 6 mmol/L (2-11) 09/12/19 05:55 BUN 8 mg/dL (6-24) 09/12/19 05:55 Creatinine 0.70 mg/dL (0.51-0.95) 09/12/19 05:55 Est GFR ( Amer) 113.9 (>60) 09/12/19 05:55 Est GFR (Non-Af Amer) 94.2 (>60) 09/12/19 05:55 BUN/Creatinine Ratio 11.4 (8-20) 09/12/19 05:55 Glucose 87 mg/dL (70-100) 09/12/19 05:55 Calcium 9.0 mg/dL (8.6-10.3) 09/12/19 05:55 Vancomycin Trough 12.5 mcg/mL 09/11/19 05:13 Random Vancomycin 22.6 mcg/mL 09/06/19 14:20 Blood Type O Positive 09/03/19 15:52 Antibody Screen Negative 09/03/19 15:52 <Crystal Mcclendon - Last Filed: 09/13/19 08:57> - Progress Note SOAP: Subjective: Patient reports decreased pain. Objective: LLE: - Reduced soft tissue swelling, but still moderate swelling about the ankle - I was able to wrinkle somewhat the skin medially and posterolaterally Assessment: 1. POD 10 s/p ex-fix L ankle trimalleolar fracture dislocation. 2. 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 Morbid obesity 4. Nerve palsy with ankle injury with reduced flexion/extension toes and clawing of the toes Plan: - To the OR tomorrow for ORIF trimalleolar fracture with medial, lateral, posterior fixation - NPO after midnight <Shen Castaneda - Last Filed: 09/13/19 20:29>
[2019-09-13] MEDS: Magnesium Hydroxide LIQ* 30 ML UDC PO SCH ×2 (09:13→22:07)
[2019-09-13] MEDS: Fluticasone NASAL SPRAY 50MCG* 16 gm SPRAY BTL BOTH NARES SCH ×2 (09:13→21:26)
[2019-09-13] MEDS: Methenamine Hippurate TAB* 1 GM TAB PO SCH ×2 (09:14→21:29)
[2019-09-13] MEDS: SOLIFENACIN 10 MG PO SCH (09:14)
[2019-09-13] MEDS: BuPROPion XL* 300 MG TAB.XL PO SCH (09:14)
[2019-09-13] MEDS: Folic Acid TAB* 1 MG PO SCH (09:14)
[2019-09-13] MEDS: Pantoprazole TAB * 40 MG TAB PO SCH (09:14)
[2019-09-13] MEDS: Vitamin THERAPEUTIC TAB PO SCH (09:14)
[2019-09-13] MEDS: Cholecalciferol TAB* 1000 UNITS PO SCH (09:14)
[2019-09-13] MEDS: lamoTRIgine TAB(*) 100 MG PO SCH (09:14)
[2019-09-13] MEDS: DULoxetine DR CAP* 60 MG CAP.DR PO SCH (09:15)
[2019-09-13] MEDS: Docusate CAP* 100 MG PO SCH ×2 (09:15→21:30)
[2019-09-13] MEDS: Cyanocobalamin TAB* 500 MCG PO SCH (09:15)
[2019-09-13] MEDS: Calcium Polycarbophil TAB* 625 MG PO SCH (09:15)
[2019-09-13] MEDS: Ferrous Sulfate TAB* 325 MG PO SCH (09:15)
[2019-09-13] MEDS: Calcium/Vitamin D TAB 250/125* TAB PO SCH (09:16)
[2019-09-13] MEDS: oxyCODONE TAB* 5 MG TAB PO PRN ×2 (09:16→17:24)
[2019-09-13] MEDS: DALFAMPRIDINE 10 MG PO SCH ×2 (09:21→22:07)
[2019-09-13] MEDS: Mirabegron (NF) 25 MG TAB PO SCH (09:22)
[2019-09-13] MEDS ORDERED: Buffered Lidocaine 1% SYRIN* 1 ML/SYRINGE INTRADERM ONE (12:50)
[2019-09-13] MEDS: Mometasone 220 MCG MDI INH SCH (19:15)
[2019-09-13] MEDS: traZODone TAB* 50 MG TAB PO SCH (21:27)
[2019-09-13] MEDS: Propranolol TAB* 80 MG PO SCH (21:27)
[2019-09-13] MEDS: INTERFERON BETA SUBCUT SCH (21:32)
[2019-09-14] MEDS ORDERED: Vancomycin Trough Check NOTE FOLLOW UP ONE (05:30)
[2019-09-14 05:47] LABS: INR 1.05 (0.82-1.09)
[2019-09-14] MEDS: Acetaminophen TAB* 325 MG PO SCH ×3 (05:48→22:00)
[2019-09-14] MEDS: Liothyronine TAB* 25 MCG PO SCH (05:48)
[2019-09-14] MEDS: Lactated Ringers 1000 ML Bag* 1,000 ML IV SCH ×2 (05:48→21:30)
[2019-09-14] MEDS: oxyCODONE TAB* 5 MG TAB PO PRN ×5 (05:49→23:26)
[2019-09-14 06:24] LABS: ABS Eosinophils 0.2 10^3/ul (0-0.6); ABS Lymphocytes 1.3 10^3/ul (1.0-4.8); ABS Monocytes 0.7 10^3/ul (0-0.8); ABS Neutrophils 3.5 10^3/ul (1.5-7.7); Eosinophil % 3.9 %; Hematocrit 35 % (35-47); Hemoglobin 11.6 g/dL (12.0-16.0); Lymphocyte % 22.4 %; Mean Corpuscular HGB Conc 33 g/dL (31-36); Mean Corpuscular Hemoglobin 27 pg (27-31); Mean Corpuscular Volume 81 fL (80-97); Mean Platelet Volume 7.2 fL (7.4-10.4); Platelet Count 341 10^3/uL (150-450); Red Blood Count 4.33 10^6 /uL (3.70-4.87); Red Cell Distribution Width 17 % (10-15); White Blood Count 5.8 10^3/uL (3.5-10.8)
[2019-09-14 06:28] LABS: Vancomycin Trough < 2.0 mcg/mL
[2019-09-14 06:45] LABS: BUN/Creatinine Ratio 14.9 (8-20); Calcium 9.6 mg/dL (8.6-10.3); EGFR African American 119.8 (>60); Potassium 4.2 mmol/L (3.5-5.0)
[2019-09-14 07:13] LABS: Blood Urea Nitrogen 10 mg/dL (6-24); EGFR African American 94.9 (>60); EGFR Non-African American 78.4 (>60)
[2019-09-14] MEDS: Calcium Polycarbophil TAB* 625 MG PO SCH (10:09)
[2019-09-14] MEDS: Cholecalciferol TAB* 1000 UNITS PO SCH (10:09)
[2019-09-14] MEDS: Docusate CAP* 100 MG PO SCH ×2 (10:09→22:00)
[2019-09-14] MEDS: lamoTRIgine TAB(*) 100 MG PO SCH (10:09)
[2019-09-14] MEDS: DULoxetine DR CAP* 60 MG CAP.DR PO SCH (10:10)
[2019-09-14] MEDS: Vitamin THERAPEUTIC TAB PO SCH (10:10)
[2019-09-14] MEDS: BuPROPion XL* 300 MG TAB.XL PO SCH (10:11)
[2019-09-14] MEDS: Calcium/Vitamin D TAB 250/125* TAB PO SCH (10:11)
[2019-09-14] MEDS: Cyanocobalamin TAB* 500 MCG PO SCH (10:11)
[2019-09-14] MEDS: Pantoprazole TAB * 40 MG TAB PO SCH (10:11)
[2019-09-14] MEDS: Ferrous Sulfate TAB* 325 MG PO SCH (10:11)
[2019-09-14] MEDS: Folic Acid TAB* 1 MG PO SCH (10:13)
[2019-09-14] MEDS: Fluticasone NASAL SPRAY 50MCG* 16 gm SPRAY BTL BOTH NARES SCH ×2 (10:14→22:00)
[2019-09-14] MEDS: DALFAMPRIDINE 10 MG PO SCH ×2 (10:14→22:03)
[2019-09-14] MEDS: Magnesium Hydroxide LIQ* 30 ML UDC PO SCH ×2 (10:14→22:14)
[2019-09-14] MEDS: Methenamine Hippurate TAB* 1 GM TAB PO SCH ×2 (10:15→21:59)
[2019-09-14] MEDS: Mirabegron (NF) 25 MG TAB PO SCH (10:15)
[2019-09-14] MEDS: SOLIFENACIN 10 MG PO SCH (10:15)
[2019-09-14] MEDS ORDERED: Buffered Lidocaine 1% SYRIN* 1 ML/SYRINGE INTRADERM ONE (12:17)
[2019-09-14] MEDS ORDERED: Bupivacaine 0.5% W/EPI SDV* 10 ML VIAL INJ ONE (12:22)
[2019-09-14] MEDS ORDERED: ceFAZolin 1 GM ADVAN(*) 1 GM ADDV.VIAL IVPB ONE (12:33)
[2019-09-14] MEDS ORDERED: ceFAZolin 2 GM in NS PREMIX(*) 2 GM/100 ML BAG IVPB ONE (12:34)
[2019-09-14] MEDS ORDERED: Midazolam* 1 MG/ML 2 ML VIAL (2 MG) ONE (13:07)
[2019-09-14] MEDS ORDERED: Rocuronium* 10 MG/ML VIAL ONE (13:07)
[2019-09-14] MEDS ORDERED: Ondansetron INJ* 2 MG/ML VIAL ONE (13:07)
[2019-09-14] MEDS ORDERED: Propofol* 10 MG/ML 20 ML BTL ONE ×2 (13:07→17:20)
[2019-09-14] MEDS ORDERED: fentaNYL* 50 MCG/ML 2 ML VIAL (100 MCG VIAL) ONE (13:07)
[2019-09-14] MEDS ORDERED: Dexamethasone IV* 4 MG/ML 1 ML (4 MG) ONE ×2 (13:08)
[2019-09-14] MEDS ORDERED: Glycopyrrolate IV* 0.2 MG/ML 1 ML VIAL ONE (13:08)
[2019-09-14] MEDS ORDERED: Sevoflurane* BOTTLE ONE (14:29)
[2019-09-14] MEDS ORDERED: Acetaminophen IV 1GM/100ML * 100 ML ONE (14:29)
[2019-09-14] MEDS ORDERED: Naloxone* 0.4 MG/ML 1 ML VIAL IV PRN (15:36)
[2019-09-14] MEDS ORDERED: DiMENhydriNATE IV* 50 MG/ML VIAL IV PUSH PRN (15:36)
[2019-09-14] MEDS ORDERED: HYDROmorphone INJ1* 1 MG/ML SYRINGE ONE ×3 (17:17→19:16)
[2019-09-14] MEDS ORDERED: Vancomycin per Pharmacy* NOTE FOLLOW UP PRN (18:13)
[2019-09-14] MEDS ORDERED: oxyCODONE TAB* 5 MG TAB ONE ×2 (18:24→18:52)
[2019-09-14] MEDS: HYDROmorphone INJ1* 1 MG/ML SYRINGE IV PRN ×5 (18:39→19:08)
[2019-09-14] MEDS ORDERED: Vancomycin(*) 1,000 MG in NS 0.9% 250 ML* 250 ML IV SCH (19:00)
[2019-09-14] MEDS ORDERED: Ketorolac INJ* 30 MG/ML 1 ML VIAL ONE (19:16)
[2019-09-14] MEDS: Vancomycin(*) 1,000 MG in NS 0.9% 250 ML* 250 ML IV SCH (21:30)
[2019-09-14] MEDS: Propranolol TAB* 80 MG PO SCH (21:59)
[2019-09-14] MEDS: traZODone TAB* 50 MG TAB PO SCH (22:00)
[2019-09-14] MEDS: Mometasone 220 MCG MDI INH SCH (22:04)
[2019-09-15] MEDS: oxyCODONE TAB* 5 MG TAB PO PRN ×4 (04:53→20:18)
[2019-09-15] MEDS: Liothyronine TAB* 25 MCG PO SCH (05:43)
[2019-09-15] MEDS: Acetaminophen TAB* 325 MG PO SCH ×3 (05:43→21:56)
[2019-09-15] MEDS: Vancomycin(*) 1,000 MG in NS 0.9% 250 ML* 250 ML IV SCH ×3 (05:43→21:56)
[2019-09-15 05:56] LABS: Hematocrit 31 % (35-47); Hemoglobin 10.2 g/dL (12.0-16.0)
[2019-09-15 06:06] LABS: INR 1.09 (0.82-1.09)
[2019-09-15 06:11] LABS: Calcium 9.2 mg/dL (8.6-10.3); EGFR African American 144.4 (>60); EGFR Non-African American 119.3 (>60); Potassium 4.2 mmol/L (3.5-5.0)
[2019-09-15] MEDS: Cyclobenzaprine TAB* 10 MG PO PRN ×2 (08:10→17:11)
[2019-09-15] MEDS: Lactated Ringers 1000 ML Bag* 1,000 ML IV SCH ×2 (10:23→21:56)
--- NOTE | 2019-09-15 10:25 | PN ---
Progress Note - Progress Note Date of Service: 09/15/19 SOAP: Subjective: Has some L ankle pain. Has some new decreased sensation in left toes but also in left thigh proximal to splint. Objective: LLE: - Splint intact - CR less than 2 seconds toes - Mild discomfort with PROM toes - Sensation decreased in toes (but this was also the case pre-op so difficult to distinguish magnitude) Selected Entries 09/15/19 07:37 Temperature 96.5 F Pulse Rate 63 Respiratory 16 Rate Blood Pressure 130/78 (mmHg) O2 Sat by Pulse 98 Oximetry Laboratory Tests 09/12/19 09/14/19 09/15/19 05:55 05:51 05:21 Hct 34 L 35 31 L Assessment: POD 1 ORIF L ankle trimalleolar fracture dislocation, removal of external fixator Plan: - Non weight bearing left lower extremity - Elevation left lower extremity, especially in the first 4 days post-op - Lovenox 40 SQ daily to start 09/16/19 - I will see the patient in the office ~1 week postop for wound check and conversion into a short leg cast. If the patient is still here Tuesday and supplies are available, we may do a wound check and conversion to cast then. - Pain control
[2019-09-15] MEDS: Methenamine Hippurate TAB* 1 GM TAB PO SCH ×2 (10:56→21:37)
[2019-09-15] MEDS: Folic Acid TAB* 1 MG PO SCH (10:57)
[2019-09-15] MEDS: Ferrous Sulfate TAB* 325 MG PO SCH (10:57)
[2019-09-15] MEDS: Docusate CAP* 100 MG PO SCH ×2 (10:58→21:33)
[2019-09-15] MEDS: Cyanocobalamin TAB* 500 MCG PO SCH (10:58)
[2019-09-15] MEDS: Calcium/Vitamin D TAB 250/125* TAB PO SCH (10:58)
[2019-09-15] MEDS: Pantoprazole TAB * 40 MG TAB PO SCH (10:58)
[2019-09-15] MEDS: DULoxetine DR CAP* 60 MG CAP.DR PO SCH (10:59)
[2019-09-15] MEDS: BuPROPion XL* 300 MG TAB.XL PO SCH (10:59)
[2019-09-15] MEDS: Vitamin THERAPEUTIC TAB PO SCH (10:59)
[2019-09-15] MEDS: Cholecalciferol TAB* 1000 UNITS PO SCH (11:00)
[2019-09-15] MEDS: lamoTRIgine TAB(*) 100 MG PO SCH (11:00)
[2019-09-15] MEDS: Calcium Polycarbophil TAB* 625 MG PO SCH (11:02)
[2019-09-15] MEDS: Fluticasone NASAL SPRAY 50MCG* 16 gm SPRAY BTL BOTH NARES SCH ×2 (11:03→21:34)
[2019-09-15] MEDS: Magnesium Hydroxide LIQ* 30 ML UDC PO SCH ×2 (11:05→21:39)
[2019-09-15] MEDS: Mirabegron (NF) 25 MG TAB PO SCH (11:06)
[2019-09-15] MEDS: SOLIFENACIN 10 MG PO SCH (11:06)
[2019-09-15] MEDS: DALFAMPRIDINE 10 MG PO SCH ×2 (11:06→21:34)
[2019-09-15] MEDS: Morphine INJ* 2 MG/ML 1 ML SYRINGE (TWO MG - NEW SYRINGE VERSION) IV PRN ×4 (11:11→21:35)
[2019-09-15] MEDS: PTO: Mirabegron (NF) 25 MG TAB PO SCH (13:05)
[2019-09-15] MEDS: PTO: Solifenacin(NF) 10 MG TAB PO SCH (13:06)
[2019-09-15] MEDS: Mometasone 220 MCG MDI INH SCH ×2 (19:10→19:22)
[2019-09-15] MEDS: traZODone TAB* 50 MG TAB PO SCH (21:33)
[2019-09-15] MEDS: Propranolol TAB* 80 MG PO SCH (21:34)
--- NOTE | 2019-09-16 03:50 | OP ---
OPERATIVE REPORT: DATE OF OPERATION: 09/14/19. DATE OF : 84. SURGEON: Shen Castaneda MD. HELPDESK MANAGER: SOPHIA John. A physician personal assistant was required for the length of the procedure for assistance with patient positioning, retraction, instrumentation and closure. ANESTHESIOLOGIST: Dr. Eliazar Romeo. ANESTHESIA: General anesthesia. PRE-OP DIAGNOSES: 1. Left ankle trimalleolar fracture dislocation. 2. Status post closed relocation and external fixation of left ankle trimalleolar fracture dislocation on 09/03/19. 3. Morbid obesity with a weight of 380 pounds and BMI of 54.5. 4. Multiple sclerosis and a history of lumbar spine tumor excision surgery with a baseline bilateral lower extremity, peripheral neuropathy. 5. New onset left foot motor and sensory palsy with fracture dislocation injury. POST-OP DIAGNOSES: 1. Left ankle trimalleolar fracture dislocation. 2. Status post closed relocation and external fixation of left ankle trimalleolar fracture dislocation on 09/03/19. 3. Morbid obesity with a weight of 380 pounds and BMI of 54.5. 4. Multiple sclerosis and a history of lumbar spine tumor excision surgery with a baseline bilateral lower extremity, peripheral neuropathy. 5. New onset left foot motor and sensory palsy with fracture dislocation injury. OPERATIVE PROCEDURE: 1. Open reduction and internal fixation, left ankle trimalleolar fracture dislocation with medial and lateral and posterior fixation. 2. Removal of external fixator, left ankle. 3. Modifier 22 for unusual or complex procedure given the nature of this procedure in an obese patient requiring additional positioning considerations, given the significant preoperative soft tissue swelling about the ankle, and given the bothersome, time-consuming amount of intraoperative bleeding, despite appropriate hold preop of heparin anticoagulation PATIENT POSITIONING: Lateral decubitus on a beanbag. ANTIBIOTICS: Ancef 3 g IV. IV FLUIDS: See Anesthesia note. ESTIMATED BLOOD LOSS: Less than 200 cc. [id number] TIME: 154 minutes. TOURNIQUET TIME: 118 minutes of left thigh tourniquet at 300 and then 350 mmHg. Within these 118 minutes, I dropped the tourniquet for a period of time, so was not continuously up for 118 minutes. SPECIMEN: None. IMPLANTS: Posteriorly, I placed a Synthes 5-hole one-third tubular plate, then I flattened. I placed 4 screws through that plate, 3.5 mm cortical, partially or fully threaded. Laterally, I placed a Synthes one-third tubular plate. Approximately, 8 holes. Through that, I placed 2 nonlocking 3.5 mm screws and 4 locking cortical screws. I placed 1 nonlocking and 2 locking screws on either side of the fracture. Across the fracture of the lateral malleolus itself, I placed a 2.7 mm fully threaded cortical screw from posteroinferior to anterior and proximal placed using lag technique. Medially, I placed a Synthes 4.0 mm partially threaded cannulated screws. One of the screws was placed with a washer. COMPLICATIONS: None. INDICATIONS FOR PROCEDURE: The patient is a 39-year-old woman, with multiple medical problems mentioned above, who tripped and fell on 09/03/19. She presented to the emergency room at [facility] [place] where x-rays indicated a left ankle trimalleolar fracture with significant dislocation of the ankle joint and significant deformity of the ankle fracture fragments. A reduction was attempted by emergency room staff, which improved the x-ray, but still showed a terrific amount of dislocation. I brought the patient at the earliest possible convenience that date to the operating room. She already had too much soft tissue swelling to perform open reduction and internal fixation surgery, and so I performed an external fixation of the left ankle. I was able to get excellent reduction intraoperatively that I was very happy with. After that first procedure, we admitted the patient postoperatively for pain control and because she was nonweightbearing left lower extremity. From immediately postoperative, I put the patient's left lower extremity under severe elevation conditions with 6 to 8 pillows under that left lower extremity. Especially given the significant high energy nature of her dislocation and the significant swelling and bruising that she developed, I knew that extremes of elevation were required prior to allow that soft tissue swelling to go down enough for definitive surgery. The patient was not appropriate for discharge from the hospital and so she stayed for 11 days until a surgery, definitive was appropriate. I followed along the patient, who was admitted to my service. I had checked in with the patient's personal assistant each day regarding the status of the patient's ankle soft tissues and I saw her every several days to assess them. Several times, we considered surgery sooner, but as the skin did not yet wrinkle, I delayed surgery. Appropriate pin site care was being provided and there was no sign of an infection at any of the patient's pin sites. The patient was on vancomycin for a long period of time just as prophylaxis and I obtained an ID consult by Dr. Hull. 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 I repeatedly found this patient with 6 to 8 pillows under that left ankle with the left ankle elevated well above the heart. I was surprised that how slowly her soft tissue swelling regressed, but figured that this was likely due to her neuropathy. Given the patient's immobility, we had her on heparin subcu. We had her on every 8 hours dosing given her obesity. Prior to surgery at about 10 days postoperatively noted the soft tissues could wrinkle posterolaterally and medially at the sites of my planned incisions. There was just the thinnest amount of very narrow 1 mm blisters directly posterior, but no other fracture blisters present about any of the planned incision sites. The skin integrity looked good. Therefore, I decided to perform the surgery 11 days after the external fixator had been placed. I should state that about 1 week after the external fixator was placed, I obtained a new CT scan to just check in on the exact nature in the reduction of all the patient's fracture fragments. I did this because I considered definitive treatment with an external fixator. Given the patient's higher than average risk of postoperative infection and wound breakdown, I felt that definitive external fixator treatment could be reasonable. However, while the reduction looked to be good, and reasonable on x-ray, CT revealed that there was still significant displacement at the fracture sites that warranted an attempted anatomic or near anatomic reduction especially given this patient's young age and her heavy weight. The day that I met the patient prior to the external fixator placement as well as after that operation as well as multiple times in the future, I spoke with the patient and her mother about the severity of this injury. I spoke that all the risks of surgery including bleeding, infection, nerve or blood vessel injury , nonunion, malunion, failure of hardware, need for removal of hardware, blood clots. Development of ankle osteoarthritis. Decreased mobility. In particular, I talked to them about wound to breakdown and wound infection as being things that we are particularly concerned about with ankle surgery. Given this patient's neuropathy whether it is due to multiple sclerosis or her spinal surgery, she is at an elevated risk of wound breakdown and infection. Certainly, her weight makes her at a higher risk of failure of hardware. I obtained an infectious disease consult and infectious disease team felt that her risk of infection was not as high as in patient with diabetic neuropathy and they proposed that it was not much higher than in a patient without neuropathy. I took their opinions under my assessment. I needed to spend sometime speaking with Anesthesia about plan for intraoperative positioning given the patient's large size. We determined that it would be safest for the patient's general medical health to make her lateral decubitus and not prone. DESCRIPTION OF PROCEDURE: The patient was made n.p.o. after midnight. Her heparin was held after midnight. The procedure proceeded after noon the following day, so the patient was off of subcutaneous heparin for at least 12 hours preoperatively. In preoperative holding, the patient signed a written consent. Operative extremity was marked in the preoperative holding. The patient was taken back to the operating room and placed supine on the operating room table. Sedated and intubated. Axillary roll was placed. The patient was converted to lateral decubitus position. Beanbag was hardened. I flexed the contralateral right hip. I moved the right lower extremity more anterior. The left lower extremity, I could not more posterior and placed on a bone foam device. We placed a tourniquet about the left thigh. It was put under appropriate tension. A mini time-out was performed. I next proceeded to remove all the external fixation hardware. I cut the calcaneal pin before moving it to minimize the amount of outside pin moving through the patient's heel before exiting. There was no significant drainage from any of the pin sites in the skin. The patient's left lower extremity was prepped with Betadine and then draped. A surgical time-out was performed. Esmarch was applied tightly and tourniquet was elevated to 300 mmHg. I made a posterolateral skin incision, I centered about 1/[address] from the posterior malleolus to the Achilles tendon. I started dissecting through subcutaneous tissue. One notable finding was the patient's general oozing of blood. No clear medium or large vessels were ever encountered in this case. However, the patient had oozing of blood from just about everywhere about the subcutaneous tissue. I used Bovie electrocautery to stop this bleeding. I got down to the peroneal tendon fascia and still there was this bleeding. I spent some time stemming the bleeding. I dropped the tourniquet and the bleeding reduced significantly leading me to believe that I had a venous tourniquet. I left the tourniquet down for a while. Unsure of how long it was down for, however, looking at my times I suspect it was down for something like 20 minutes. Incised peroneal fascia. Retracted peroneal tendons anteriorly. I released some peroneal retinaculum as well distally. Encountered FHL fascia. Incised that longitudinally and retracted the FHL muscle medially. At some point, the oozing returned and so I decided to re-elevate the tourniquet. At this point, I changed the setting to 350 mmHg and that is where it stayed for the reminder of the tourniquet time. Identified posterior malleolar fracture. On preoperative CT scan, it had appeared to be noncomminuted. However, it was clearly comminuted. I opened it up slightly to debride. The proximal most comminuted bone segment was anatomically reduced, looked visibly excellent. However, it appeared at the most medial aspect of the visible fracture line that there was perhaps a 1 mm step off. It was hard to know if this was an area of comminution or of residual displacement. I used a bone pusher to maintain an excellent reduction and then I placed K-wires from posterior to anterior, 1.2-cm K-wires. These were for provisional fixation. I flattened out a 1/3rd tubular plate, contoured it slightly then placed it. I sealed it up with screws in 4 of the 5 holes, partially threaded screws distally and fully threaded screws proximally. I obtained images with large C-arm, which showed excellent alignment of the subchondral bone, anatomic or near anatomic reduction and good hardware placement. I removed K-wires. I moved to the lateral malleolus. I debrided the fracture site. I placed bone clamp. I achieved reduction. There was a small fragment of bone comminution about the anterior aspect of the fracture, which has just a tiny bit of articular cartilage on it that I removed from the wound as it was too small to fix. I performed excellent reduction maneuver and clamped bone. I placed a 2.7 mm fully threaded cortical screw using lag technique from inferior and posterior to superior and anterior. This held reduction nicely. I picked an 8- hole 1/3rd tubular plate. I fixed it to bone first with nonlocking screws one proximal and distal. C-arm imaging showed excellent placement of plate and excellent reduction. I filled up the screw distally and proximally with locking screws. Due to general ooziness throughout the procedure and the patient's general soft tissue swelling, I certainly had the status of the soft tissues in my mind during the case. I wanted to make sure that the posterior lateral wound was closable prior to making a medial incision. Therefore, I closed fully the posterolateral wound before moving medially. I closed the FHL fascia with [id number] stitches using Vicryl 2-0 suture. That brought together that fascia very nicely. The peroneals were in place. I closed the peroneal retinaculum with [id number] stitches using Vicryl 2-0 suture. I closed the fascia directly overlying the distal fibula with figure-of - eight stitches using Vicryl 2-0 sutures. I should state that I was aware of the position of the superficial peroneal nerve and sural nerve anatomically during this procedure and I looked for them, but they were never visualized or encountered. I next closed the subcutaneous tissue with buried simple stitches using Vicryl 3 -0 suture. The skin was closed with amarilis. We did note some bruising about the posterolateral ankle as soon as we were closed. However, the closure had brought very nicely together subcutaneous tissue and skin. There was no bleeding from the wound after the skin was fully stapled. However, I had no doubt that with the patient's general preop swelling and intraoperative oozing of blood from surfaces all over that this might be an issue. We removed the bone foam. This allowed the leg to convert to a more supine positioning. I made a medial approach to the medial malleolus. I dissected down to fracture site. I removed periosteum and fibrous tissue from the fracture. I reduced the fracture with my fingers. While it reduced nicely more medially, there was some gapping still between the 2 pieces of bone laterally. I think that this was because of some crushing, loss of bone secondary to the severe nature of the patient's injury. I confirmed visually the excellent reduction of the bone anteriorly. It was a little bit of likely a little small fragmented come out of the more lateral aspect of the fracture posteriorly, either from a small ethan fragment of bone or from just crush from the injury itself. I placed a K-wires across the medial malleolus fracture. I drilled and then placed partially threaded cannulated 4-0 screws. My first screw was placed without a washer. It was a shorter screw as it hit hardware from that posterior malleolar plate. The second screw was placed with a washer and had excellent purchase. Irrigation. Closure of the subcutaneous tissue with buried simple stitches using Vicryl 3-0 suture. To assist in the closure of the medial wound, I placed several horizontal mattress stitches using nylon suture. I then placed the amarilis along the skin. There was no drainage whatsoever from medial incision. A nice skin-to- skin apposition of this incision as well. I did note some bruising about the anterior ankle. I placed Adaptic over the 2 skin incisions followed by 4x4's and sterile Webril. Over the ex-fix pin sites, I placed Xeroform, 4x4's, and sterile Webril. I placed a much sterile Webril and I followed this with a nonsterile Webril, and a plaster splint, first a posterior slab and then a sugar tong slab overwrapped with an Amarjit bandage. The patient was awakened, extubated, and transferred to the PACU. DISPOSITION: The patient was returned to the floor on my service. Instructions were for extreme elevation again of that left lower extremity to minimize the risk of any wound breakdown or wound infection. Disposition planning would start immediately given the high likelihood of this patient requiring rehabilitation services given her weight and her non-weightbearing left lower extremity status. Given her high risk of postoperative infection, I wrote her for 2 days of vancomycin antibiotics postoperatively. The patient will soon be converted to a cast. Given her size I will likely cast her for 6 weeks postoperatively. Due to her risk of wound infection and breakdown, I will likely see the patient often in the first 6 weeks to be vigilant about the quality of those tissues. I had considered a skin wound sponge such as the Prevena or the MITZY to minimize the risk of wound breakdown or infection. However, I did not know if with the patient's multiple sclerosis and neuropathy if this could actually have a detrimental effect, so I held off on that. [id number]/[facility] #: [id number] LOPEZ
[2019-09-16] MEDS: Morphine INJ* 2 MG/ML 1 ML SYRINGE (TWO MG - NEW SYRINGE VERSION) IV PRN ×2 (04:28→10:51)
[2019-09-16] MEDS: Liothyronine TAB* 25 MCG PO SCH (05:36)
[2019-09-16] MEDS: Vancomycin(*) 1,000 MG in NS 0.9% 250 ML* 250 ML IV SCH ×2 (05:36→13:16)
[2019-09-16] MEDS: Acetaminophen TAB* 325 MG PO SCH ×3 (05:36→23:03)
[2019-09-16] MEDS: oxyCODONE TAB* 5 MG TAB PO PRN ×3 (09:26→23:18)
[2019-09-16] MEDS: DALFAMPRIDINE 10 MG PO SCH ×2 (09:32→21:17)
[2019-09-16] MEDS: Fluticasone NASAL SPRAY 50MCG* 16 gm SPRAY BTL BOTH NARES SCH ×2 (09:32→21:19)
[2019-09-16] MEDS: Methenamine Hippurate TAB* 1 GM TAB PO SCH ×2 (09:32→21:18)
[2019-09-16] MEDS: PTO: Mirabegron (NF) 25 MG TAB PO SCH (09:32)
[2019-09-16] MEDS: Calcium Polycarbophil TAB* 625 MG PO SCH (09:34)
[2019-09-16] MEDS: Calcium/Vitamin D TAB 250/125* TAB PO SCH (09:34)
[2019-09-16] MEDS: Docusate CAP* 100 MG PO SCH ×2 (09:34→21:16)
[2019-09-16] MEDS: Vitamin THERAPEUTIC TAB PO SCH (09:35)
[2019-09-16] MEDS: Ferrous Sulfate TAB* 325 MG PO SCH (09:35)
[2019-09-16] MEDS: BuPROPion XL* 300 MG TAB.XL PO SCH (09:35)
[2019-09-16] MEDS: Cyanocobalamin TAB* 500 MCG PO SCH (09:35)
[2019-09-16] MEDS: Pantoprazole TAB * 40 MG TAB PO SCH (09:35)
[2019-09-16] MEDS: DULoxetine DR CAP* 60 MG CAP.DR PO SCH (09:36)
[2019-09-16] MEDS: Cholecalciferol TAB* 1000 UNITS PO SCH (09:36)
[2019-09-16] MEDS: Folic Acid TAB* 1 MG PO SCH (09:36)
[2019-09-16] MEDS: Magnesium Hydroxide LIQ* 30 ML UDC PO SCH ×2 (09:37→21:00)
[2019-09-16] MEDS: PTO: Solifenacin(NF) 10 MG TAB PO SCH (09:54)
[2019-09-16] MEDS: lamoTRIgine TAB(*) 100 MG PO SCH (09:54)
[2019-09-16] MEDS: INTERFERON BETA SUBCUT SCH ×2 (10:48→23:04)
--- NOTE | 2019-09-16 12:25 | PN ---
Progress Note - Progress Note Date of Service: 09/16/19 SOAP: Subjective: Pain left ankle. Some decreased sensation toes. Objective: LLE: - Splint in place - Only minimal discomfort with PROM toes - Active flexion first 3 toes and active extension first two toes - CR less than 2 seconds Selected Entries 09/16/19 12:00 Temperature 98.3 F Pulse Rate 80 Respiratory 18 Rate Blood Pressure 118/58 (mmHg) O2 Sat by Pulse 94 Oximetry Laboratory Tests 09/12/19 09/14/19 09/15/19 05:55 05:51 05:21 Hct 34 L 35 31 L Assessment: POD 2 ORIF left ankle trimall fracture dislocation & removal of external fixator Plan: - Continue strict elevation left lower extremity. - Pain control. Try to wean off IV narcotics to facilitate discharge. - Heparin SQ for DVT prophylaxis - Vancomycin x 48 hours postop - Dispo planning - We may convert her splint to a cast prior to discharge from hospital given that she may have some difficulty getting to clinic postop and I would like to do a skin check early in the postop course
[2019-09-16] MEDS: Enoxaparin(*) 40 MG/0.4 ML SYR SUBCUT SCH (12:54)
[2019-09-16] MEDS ORDERED: Morphine INJ* 2 MG/ML 1 ML SYRINGE (TWO MG - NEW SYRINGE VERSION) IV PRN (13:02)
[2019-09-16] MEDS ORDERED: Morphine INJ* 2 MG/ML 1 ML SYRINGE (TWO MG - NEW SYRINGE VERSION) ONE (13:12)
[2019-09-16] MEDS ORDERED: Morphine TAB Extended Release (*) 30 MG TAB.ER ONE (13:13)
[2019-09-16] MEDS: Morphine TAB Extended Release (*) 15 MG TAB.ER PO SCH (13:29)
[2019-09-16] MEDS: Cyclobenzaprine TAB* 10 MG PO PRN (14:07)
[2019-09-16] MEDS: tiZANidine TAB* 2 MG PO PRN (21:16)
[2019-09-16] MEDS: traZODone TAB* 50 MG TAB PO SCH (21:16)
[2019-09-16] MEDS: Propranolol TAB* 80 MG PO SCH (21:18)
[2019-09-17] MEDS: Morphine TAB Extended Release (*) 15 MG TAB.ER PO SCH ×2 (00:24→14:37)
[2019-09-17] MEDS: Mometasone 220 MCG MDI INH SCH ×2 (00:28→19:10)
[2019-09-17] MEDS: oxyCODONE TAB* 5 MG TAB PO PRN ×2 (04:12→08:32)
[2019-09-17] MEDS: Acetaminophen TAB* 325 MG PO SCH ×3 (06:25→21:59)
[2019-09-17] MEDS: Liothyronine TAB* 25 MCG PO SCH (06:25)
[2019-09-17] MEDS: Polyethylene Glycol 3350* 17 GM PACKET PO PRN (08:24)
[2019-09-17] MEDS: DALFAMPRIDINE 10 MG PO SCH ×2 (08:24→20:41)
[2019-09-17] MEDS: lamoTRIgine TAB(*) 100 MG PO SCH (08:25)
[2019-09-17] MEDS: Cholecalciferol TAB* 1000 UNITS PO SCH (08:26)
[2019-09-17] MEDS: Calcium Polycarbophil TAB* 625 MG PO SCH (08:27)
[2019-09-17] MEDS: Pantoprazole TAB * 40 MG TAB PO SCH (08:28)
[2019-09-17] MEDS: DULoxetine DR CAP* 60 MG CAP.DR PO SCH (08:28)
[2019-09-17] MEDS: Methenamine Hippurate TAB* 1 GM TAB PO SCH ×2 (08:29→20:41)
[2019-09-17] MEDS: PTO: Mirabegron (NF) 25 MG TAB PO SCH (08:30)
[2019-09-17] MEDS: Fluticasone NASAL SPRAY 50MCG* 16 gm SPRAY BTL BOTH NARES SCH ×2 (08:31→20:43)
[2019-09-17] MEDS: PTO: Solifenacin(NF) 10 MG TAB PO SCH (08:31)
[2019-09-17] MEDS: Docusate CAP* 100 MG PO SCH ×2 (08:32→20:40)
[2019-09-17] MEDS: Vitamin THERAPEUTIC TAB PO SCH (08:33)
[2019-09-17] MEDS: Folic Acid TAB* 1 MG PO SCH (08:33)
[2019-09-17] MEDS: Cyanocobalamin TAB* 500 MCG PO SCH (08:33)
[2019-09-17] MEDS: Calcium/Vitamin D TAB 250/125* TAB PO SCH (08:34)
[2019-09-17] MEDS: Ferrous Sulfate TAB* 325 MG PO SCH (08:34)
[2019-09-17] MEDS: BuPROPion XL* 300 MG TAB.XL PO SCH (08:34)
[2019-09-17] MEDS: Magnesium Hydroxide LIQ* 30 ML UDC PO SCH ×2 (09:14→20:55)
--- NOTE | 2019-09-17 10:36 | PN ---
Progress Note - Progress Note Date of Service: 09/17/19 SOAP: Subjective: Pt is doing well. Has intermittent sharp shooting pain in the left foot. Morphine Er helping. Feels feverish this am. No abd pain, no CP/SOB. Objective: PE- 39 F NAD A&Ox3 LLE- splint c/d/i, mild pain with toe passive ROM, active ext of 4th and 5th digit, active flexion and extension first three toes, brisk cap refill Vital Signs Temp Pulse Resp BP Pulse Ox 100.7 F 84 18 140/65 92 09/17/19 09:02 09/17/19 07:48 09/17/19 09:30 09/17/19 07:48 09/17/19 07:48 Assessment: POD 3 ORIF left ankle trimall fracture dislocation & removal of external fixator Plan: - Continue strict elevation left lower extremity. - DC fatima today - Fever this am of 100.7. CBC, ESR, CRP, blood cultures and CXR to eval cause. Hold off on UA for now unless patient is having abdominal pain because will likely be positive from long history of straight cathing. I touched based with ID regarding UA. Will cont to monitor - Pain control. Cont morphine sulfate ER. Avoid IV narcotics to facilitate discharge. - lovenox for DVT prophylaxis - Keflex for 1 week to prevent wound infection - Dr. Castaneda to convert patient to cast tonight and eval wound
[2019-09-17 12:38] LABS: ABS Basophils 0.1 10^3/ul (0-0.2); ABS Eosinophils 0.3 10^3/ul (0-0.6); ABS Monocytes 0.7 10^3/ul (0-0.8); ABS Neutrophils 3.3 10^3/ul (1.5-7.7); Eosinophil % 4.7 %; Hematocrit 25 % (35-47); Hemoglobin 8.2 g/dL (12.0-16.0); Lymphocyte % 31.2 %; Mean Corpuscular HGB Conc 33 g/dL (31-36); Mean Corpuscular Hemoglobin 27 pg (27-31); Mean Corpuscular Volume 81 fL (80-97); Mean Platelet Volume 6.8 fL (7.4-10.4); Platelet Count 295 10^3/uL (150-450); Red Blood Count 3.08 10^6 /uL (3.70-4.87); Red Cell Distribution Width 16 % (10-15); White Blood Count 6.3 10^3/uL (3.5-10.8)
--- NOTE | 2019-09-17 13:58 | PN ---
Progress Note - Progress Note Date of Service: 09/17/19 SOAP: Subjective: CC: Fever HPI: Ms. Agarwal is a 39 yo female with PMH significant for depression, migraines, MS, neurogenic bladder, and morbid obesity; who presented to the hospital for a left ankle fracture. She underwent an ORIF of the left ankle after initially being in an external fixator. She was noted to have a fever this morning. Denies chills, nausea, vomiting, ABD pain, back pain, nausea, vomiting, or diarrhea. Reports pain in the left LE, intermittent dry cough, and fatigue. Objective: Vital Signs - 8 hr 09/17/19 09/17/19 09/17/19 07:48 08:30 08:32 Temperature 101 F Pulse Rate 84 Respiratory 18 18 18 Rate Blood Pressure 140/65 (mmHg) O2 Sat by Pulse 92 Oximetry 09/17/19 09/17/19 09/17/19 09:02 09:30 11:52 Temperature 100.7 F 98.3 F Pulse Rate 86 Respiratory 18 18 Rate Blood Pressure 95/52 (mmHg) O2 Sat by Pulse 97 Oximetry Physical Exam: General: NAD, sitting up in a chair Neurological: Alert and Oriented HEENT: Moist MM Cardiovascular: Heart rate regular Respiratory: Lung sounds clear Abdominal: Bowel sounds present; ABD soft, non tender, non distended, obese Skin: No rash. Surgical DSG to left LE clean, dry and intact Laboratory Results - last 24 hr 09/17/19 09/17/19 12:20 12:20 WBC 6.3 RBC 3.08 L Hgb 8.2 L Hct 25 L MCV 81 MCH 27 MCHC 33 RDW 16 H Plt Count 295 MPV 6.8 L Neut % (Auto) 52.6 Lymph % (Auto) 31.2 Johnston % (Auto) 10.6 Eos % (Auto) 4.7 Baso % (Auto) 0.9 Absolute Neuts (auto) 3.3 Absolute Lymphs (auto) 2.0 Absolute Monos (auto) 0.7 Absolute Eos (auto) 0.3 Absolute Basos (auto) 0.1 Absolute Nucleated RBC 0.0 Nucleated RBC % 0.0 C-Reactive Protein 77.11 H Assessment: 1. Fever. Temperature max this AM 101.0. Unclear cause at this time. Differential Dx: UTI, C-diff, surgical site infection, and atelectasis. Denies ABD pain or back pain; she is on Hiprex for chronic UTIs. Denies diarrhea. Reports an intermittent dry cough, chest xray with no acute findings. Per Othopedics plan to eval surgical site later today. no leukocytosis. CRP is noted to be elevated, ? reactive from surgery. 2. Left ankle fracture. S/P ORIF. 3. MS with neurogenic bladder. Straight caths at home, but has had an indwelling catheter while here. 4. Morbid obesity. BMI 54.5. Plan: No ABX at this time. Continue to follow temperature. Discussed with SOPHIA Reveles.
[2019-09-17] MEDS ORDERED: NS 0.9% 500 ML* 500 ML IV SCH (14:00)
[2019-09-17 14:34] LABS: Erythrocyte Sed Rate 81 mm/Hr (0-19)
[2019-09-17] MEDS: Cephalexin CAP* 500 MG PO SCH ×2 (14:37→20:40)
[2019-09-17] MEDS: Enoxaparin(*) 40 MG/0.4 ML SYR SUBCUT SCH (14:38)
[2019-09-17] MEDS: Cyclobenzaprine TAB* 10 MG PO PRN (18:26)
--- NOTE | 2019-09-17 18:28 | PN ---
Progress Note - Progress Note Date of Service: 09/17/19 SOAP: Subjective: Left ankle pain. No change in neuro symptoms left lower extremity. [place] feverish today, temp was 101.0 early this morning. We ordered fever workup and involved ID service. (Patient has distant past history of MRSA infection complicating lumbar spine surgery ~ 1.5 weeks postop.) Objective: NAD LLE - Motor exam is improved. Active flexion 1st, 2nd, 3rd, 4th toes and active extension 1st toe. - Sensation better medial than lateral - Splint in good condition - Splint was removed. Minimal bloody dressing on the first layer of the dressing, Telfa, at each incision site. No drainage from ex-fix pin sites. - Medial incision clean, dry, intact. Skin nicely apposed and healthy appearing. - Posterolateral incision clean, dry, intact with the exception of 1 half-drop of serous fluid mid-incision. Along parts of the incision there is some early darkening of a 1mm rim of tissue. Not noticed until after I cleaned the incision with normal saline was an area of skin about the distal end of the incision which looked overly white, possibly indicating some skin health compromise. x-rays after the fall into bed last night showed reduction and hardware unchanged. Selected Entries 09/16/19 09/16/19 09/17/19 15:46 20:40 04:07 Temperature 98.2 F 98.4 F 97.8 F 09/17/19 09/17/19 09/17/19 07:48 09:02 11:52 Temperature 101 F 100.7 F 98.3 F 09/17/19 16:23 Temperature 99.0 F Laboratory Tests 09/12/19 09/14/19 09/17/19 05:55 05:51 12:20 WBC 6.4 5.8 6.3 Neut % (Auto) 67.5 61.2 52.6 ESR 81 H C-Reactive Protein 09/17/19 12:20 WBC Neut % (Auto) ESR C-Reactive Protein 77.11 H Assessment: 1. POD 3 ORIF left ankle trimall fracture dislocation 2. POD 14 ex-fix left ankle trimall fracture dislocation 3. Morbid obesity with BMI 54.5, weight 380 lbs 4. Multiple sclerosis 5. Baseline bilateral lower extremity neuropathy status post lumbar spine excision of tumor and/or multiple sclerosis 6. New onset (with fracture) palsy left toes 7. Distant past history of perioperative infection with MRSA with lumbar spine surgery 8. Postop fever Plan: - Splint was converted to a cast today so as to enable a wound check. I had been planning this, given the patient's history of perioperative infection, her swelling pre-operatively, and her bleeding/oozing/swelling intraoperatively. Her fever today gave me an additional reason to inspect the incision sites. - I swabbed both incisions with a Providone swab. I then placed Telfa dressings over the incisions and Xeroform over the ex-fix pin site holes. Sterile 4 x 4 s and then Webroll. Then short leg cast with Fiberglass. I made a particularly thick, strong cast. I allowed the patient to plantarflex, because I figured that this would put less stress on the tissues around the posterolateral incision site and facilitate healing. - No indication of a wound infection on exam. The patient denied any symptoms consistent with a respiratory or urinary infection. - We will trend CRPs to further rule-out a wound infection or any other active infection. Perhaps the elevated temperature was just atelectasis. - Strict elevation left lower extremity. The patient clearly has impoverished fluid/edema clearance secondary to her medical problems. She needs all of the help that she can get with strict elevation to reduce swelling and to allow the healthy healing of naif-incisional tissues. - Disposition planning. The patient states that she didn't speak with hospice case manager today. Given her impaired weight bearing and mobility and weight, I suspect that she will need rehab placement or intensive visiting nurse services. We will wait for fever to discontinue prior to discharge. - Physical therapy and non-weight bearing left lower extremity - The patient is currently on Keflex PO as prophylaxis. Though there is no indication of infection and the presence of an antibiotic can muddle the current fever work-up, given this patient's high risk of infection, I think that it is reasonable at this time. I am certainly happy to discuss with ID service.
[2019-09-17] MEDS: traZODone TAB* 50 MG TAB PO SCH (20:40)
[2019-09-17] MEDS: tiZANidine TAB* 2 MG PO PRN (20:40)
[2019-09-17] MEDS: Propranolol TAB* 80 MG PO SCH (20:46)
[2019-09-18] MEDS: Morphine TAB Extended Release (*) 15 MG TAB.ER PO SCH ×2 (00:59→13:18)
[2019-09-18 05:22] LABS: ABS Basophils 0.1 10^3/ul (0-0.2); ABS Eosinophils 0.2 10^3/ul (0-0.6); ABS Lymphocytes 1.9 10^3/ul (1.0-4.8); ABS Monocytes 0.5 10^3/ul (0-0.8); ABS Neutrophils 2.9 10^3/ul (1.5-7.7); Eosinophil % 3.3 %; Hematocrit 25 % (35-47); Hemoglobin 8.1 g/dL (12.0-16.0); Lymphocyte % 34.8 %; Mean Corpuscular HGB Conc 33 g/dL (31-36); Mean Corpuscular Hemoglobin 27 pg (27-31); Mean Corpuscular Volume 82 fL (80-97); Platelet Count 301 10^3/uL (150-450); Red Blood Count 3.03 10^6 /uL (3.70-4.87); Red Cell Distribution Width 17 % (10-15); White Blood Count 5.5 10^3/uL (3.5-10.8)
[2019-09-18 05:41] LABS: Anion Gap 4 mmol/L (2-11); BUN/Creatinine Ratio 15.5 (8-20); Blood Urea Nitrogen 9 mg/dL (6-24); C Reactive Protein 72.69 mg/L (<8.01); CO2 Carbon Dioxide 32 mmol/L (22-32); Calcium 8.8 mg/dL (8.6-10.3); Chloride 102 mmol/L (101-111); EGFR African American 141.5 (>60); Glucose 108 mg/dL (70-100); Potassium 3.7 mmol/L (3.5-5.0); Sodium 138 mmol/L (135-145)
[2019-09-18] MEDS: Liothyronine TAB* 25 MCG PO SCH (05:46)
[2019-09-18] MEDS: Acetaminophen TAB* 325 MG PO SCH ×3 (05:46→22:58)
[2019-09-18] MEDS: Cyclobenzaprine TAB* 10 MG PO PRN (05:47)
--- NOTE | 2019-09-18 09:23 | PN ---
Progress Note - Progress Note Date of Service: 09/18/19 SOAP: Subjective: CC: Fever HPI: Ms. Agarwal is a 39 yo female with PMH significant for depression, migraines, MS, neurogenic bladder, and morbid obesity; who presented to the hospital for a left ankle fracture. She underwent an ORIF of the left ankle after initially being in an external fixator. Denies chills, nausea, vomiting, ABD pain, back pain, nausea, vomiting, or diarrhea. Reports pain in the left LE , intermittent dry cough, and fatigue. Objective: Vital Signs 09/18/19 08:35 Temperature 97.9 F Pulse Rate 82 Respiratory 19 Rate Blood Pressure 122/67 (mmHg) O2 Sat by Pulse 95 Oximetry Physical Exam: General: NAD, sitting up in bed Neurological: Alert and Oriented HEENT: Moist MM Cardiovascular: Heart rate regular Respiratory: Lung sounds clear Abdominal: Bowel sounds present; ABD soft, non tender and obese Skin: No rash. DSG to the left LE clean, dry and intact Laboratory Results - last 24 hr 09/17/19 09/17/19 09/18/19 12:20 12:20 05:04 WBC 6.3 5.5 RBC 3.08 L 3.03 L Hgb 8.2 L 8.1 L Hct 25 L 25 L MCV 81 82 MCH 27 27 MCHC 33 33 RDW 16 H 17 H Plt Count 295 301 MPV 6.8 L 7.0 L Neut % (Auto) 52.6 51.8 Lymph % (Auto) 31.2 34.8 Grady % (Auto) 10.6 9.2 Eos % (Auto) 4.7 3.3 Baso % (Auto) 0.9 0.9 Absolute Neuts (auto) 3.3 2.9 Absolute Lymphs (auto) 2.0 1.9 Absolute Monos (auto) 0.7 0.5 Absolute Eos (auto) 0.3 0.2 Absolute Basos (auto) 0.1 0.1 Absolute Nucleated RBC 0.0 0.0 Nucleated RBC % 0.0 0.0 ESR 81 H C-Reactive Protein 77.11 H 09/18/19 05:04 Sodium 138 Potassium 3.7 Chloride 102 Carbon Dioxide 32 Anion Gap 4 BUN 9 Creatinine 0.58 Est GFR ( Amer) 141.5 Est GFR (Non-Af Amer) 117.0 BUN/Creatinine Ratio 15.5 Glucose 108 H Calcium 8.8 C-Reactive Protein 72.69 H Assessment: 1. Fever. Temperature max yesterday AM of 101.0, afebrile since. Differential Dx : UTI, C-diff, surgical site infection, and atelectasis. Denies ABD pain or back pain; she is on Hiprex for chronic UTIs. Denies diarrhea. Reports an intermittent dry cough, chest xray with no acute findings. Per Othopedics no signs of surgical site. No leukocytosis. Blood cultures pending. CRP is noted to be elevated, ? reactive from surgery; is trending down without ABX. Suspect fever was from atelectasis. 2. Left ankle fracture. S/P ORIF. 3. MS with neurogenic bladder. 4. Morbid obesity. BMI 54.5. Plan: No ABX at this time (was started on Keflex by Orthopedics). Encourage IS use; cough and deep breathing. Discussed with SOPHIA Reveles.
[2019-09-18] MEDS: Polyethylene Glycol 3350* 17 GM PACKET PO PRN (10:18)
[2019-09-18] MEDS: PTO: Mirabegron (NF) 25 MG TAB PO SCH (10:20)
[2019-09-18] MEDS: Methenamine Hippurate TAB* 1 GM TAB PO SCH ×2 (10:20→23:01)
[2019-09-18] MEDS: DALFAMPRIDINE 10 MG PO SCH ×2 (10:20→22:59)
[2019-09-18] MEDS: DULoxetine DR CAP* 60 MG CAP.DR PO SCH (10:21)
[2019-09-18] MEDS: PTO: Solifenacin(NF) 10 MG TAB PO SCH (10:21)
[2019-09-18] MEDS: Fluticasone NASAL SPRAY 50MCG* 16 gm SPRAY BTL BOTH NARES SCH ×2 (10:21→23:01)
[2019-09-18] MEDS: Calcium Polycarbophil TAB* 625 MG PO SCH (10:21)
[2019-09-18] MEDS: Calcium/Vitamin D TAB 250/125* TAB PO SCH (10:22)
[2019-09-18] MEDS: Folic Acid TAB* 1 MG PO SCH (10:22)
[2019-09-18] MEDS: lamoTRIgine TAB(*) 100 MG PO SCH (10:22)
[2019-09-18] MEDS: BuPROPion XL* 300 MG TAB.XL PO SCH (10:22)
[2019-09-18] MEDS: Pantoprazole TAB * 40 MG TAB PO SCH (10:22)
[2019-09-18] MEDS: Ferrous Sulfate TAB* 325 MG PO SCH ×2 (10:23→22:58)
[2019-09-18] MEDS: Docusate CAP* 100 MG PO SCH ×2 (10:24→22:58)
[2019-09-18] MEDS: Cyanocobalamin TAB* 500 MCG PO SCH (10:24)
[2019-09-18] MEDS: Magnesium Hydroxide LIQ* 30 ML UDC PO SCH ×2 (10:24→23:00)
[2019-09-18] MEDS: Vitamin THERAPEUTIC TAB PO SCH (10:24)
--- NOTE | 2019-09-18 10:29 | PN ---
Progress Note - Progress Note Date of Service: 09/18/19 SOAP: Subjective: []Pt seen at bedside. She feels well without CP, SOB, nausea, abd pain, dysuria , foul smelling urine, dizziness. LLE pain is intermittently present with activity, moderate. At rest she is comfortable. Requests msk relaxant change to zanaflex as cyclobenzaprine makes her fall asleep. Also requests pain med aside from MS contin to take PRN between doses for acute pain. Does have intermittent increase in numbness of lateral foot over the past few days. Dr Castaneda placed her on keflex prophylactically yesterday. Objective: []Gen: NAD, appears well LLE: Lower leg cast in place. Toes with f/e MTPs 1-4 intact, 5 not well exposed in cast. Sensation intact to light touch and reported as baseline medical side of foot both dorsal and volar sides. From 3rd digit lateral with decreased sensation. All digits warm and well perfused with cap refill less than two seconds distally. Able to place 2 fingers between skin and cast, not appearing overly tight. No pain with passive stretch of digits. Assessment: []1. POD 4 ORIF left ankle trimall fracture dislocation 2. POD 15 ex-fix left ankle trimall fracture dislocation 3. Morbid obesity with BMI 54.5, weight 380 lbs 4. Multiple sclerosis 5. Baseline bilateral lower extremity neuropathy status post lumbar spine excision of tumor and/or multiple sclerosis 6. New onset (with fracture) palsy left toes 7. Distant past history of perioperative infection with MRSA with lumbar spineand with breast surgery 8. Postop fever 9. Anemia Plan: - Now afebrile. Will monitor temp. Cont sitting up in bed, IS - BP normalized with fluid bolus - Anemia: increased iron from QD to BID- possibly acute bloodless w/ fracture and surgery, hospitalist consulted today to eval for other cause. - No indication of a wound infection on exam. CRP trending down, will watch another day - Strict elevation left lower extremity - Disposition planning. it program manager to see today, will discuss final decision home vs rehab stay - Physical therapy and non-weight bearing left lower extremity - Discussed prophylactic abx with Dr Castaneda and ID - as patient has MRSA hx and previous sensitivities indicate sensitivity to doxy, will switch to doxy for 10 days - F/U Dr Castaneda in 1 week for wound check and cast change Vital Signs Temp 97.9 F 09/18/19 08:35 Pulse 82 09/18/19 08:35 Resp 19 09/18/19 08:35 BP 122/67 09/18/19 08:35 Pulse Ox 95 09/18/19 08:35 Intake & Output 09/17/19 09/18/19 09/18/19 18:59 06:59 18:59 Intake Total 600 916 240 Output Total 850 900 600 Balance -250 16 -360 Intake: IV Fluids 476 NS (0.9%) 476 Oral 600 440 240 Output: Urine 400 400 Contreras 200 Straight Cath 250 500 600 Other: Date of Last Bowel 09/17/19 Movement Laboratory Last Values WBC 5.5 10^3/uL (3.5-10.8) 09/18/19 05:04 RBC 3.03 10^6 /uL (3.70-4.87) L 09/18/19 05:04 Hgb 8.1 g/dL (12.0-16.0) L 09/18/19 05:04 Hct 25 % (35-47) L 09/18/19 05:04 MCV 82 fL (80-97) 09/18/19 05:04 MCH 27 pg (27-31) 09/18/19 05:04 MCHC 33 g/dL (31-36) 09/18/19 05:04 RDW 17 % (10-15) H 09/18/19 05:04 Plt Count 301 10^3/uL (150-450) 09/18/19 05:04 MPV 7.0 fL (7.4-10.4) L 09/18/19 05:04 Neut % (Auto) 51.8 % 09/18/19 05:04 Lymph % (Auto) 34.8 % 09/18/19 05:04 Harris % (Auto) 9.2 % 09/18/19 05:04 Eos % (Auto) 3.3 % 09/18/19 05:04 Baso % (Auto) 0.9 % 09/18/19 05:04 Absolute Neuts (auto) 2.9 10^3/ul (1.5-7.7) 09/18/19 05:04 Absolute Lymphs (auto) 1.9 10^3/ul (1.0-4.8) 09/18/19 05:04 Absolute Monos (auto) 0.5 10^3/ul (0-0.8) 09/18/19 05:04 Absolute Eos (auto) 0.2 10^3/ul (0-0.6) 09/18/19 05:04 Absolute Basos (auto) 0.1 10^3/ul (0-0.2) 09/18/19 05:04 Absolute Nucleated RBC 0.0 10^3/ul 09/18/19 05:04 Neutrophils % 67.0 % 09/12/19 05:55 Lymphocytes % 17.0 % 09/12/19 05:55 Monocytes % 13.0 % 09/12/19 05:55 Eosinophils % 3.0 % 09/12/19 05:55 Nucleated RBC % 0.0 09/18/19 05:04 Normal RBC Morphology Normal (Normal) 09/12/19 05:55 ESR 81 mm/Hr (0-19) H 09/17/19 12:20 Hem Pathologist Commnt 09/12/19 05:55 INR (Anticoag Therapy) 1.09 (0.82-1.09) 09/15/19 05:21 Sodium 138 mmol/L (135-145) 09/18/19 05:04 Potassium 3.7 mmol/L (3.5-5.0) 09/18/19 05:04 Chloride 102 mmol/L (101-111) 09/18/19 05:04 Carbon Dioxide 32 mmol/L (22-32) 09/18/19 05:04 Anion Gap 4 mmol/L (2-11) 09/18/19 05:04 BUN 9 mg/dL (6-24) 09/18/19 05:04 Creatinine 0.58 mg/dL (0.51-0.95) 09/18/19 05:04 Est GFR ( Amer) 141.5 (>60) 09/18/19 05:04 Est GFR (Non-Af Amer) 117.0 (>60) 09/18/19 05:04 BUN/Creatinine Ratio 15.5 (8-20) 09/18/19 05:04 Glucose 108 mg/dL (70-100) H 09/18/19 05:04 Calcium 8.8 mg/dL (8.6-10.3) 09/18/19 05:04 C-Reactive Protein 72.69 mg/L (<8.01) H 09/18/19 05:04 Vancomycin Trough < 2.0 mcg/mL 09/14/19 05:24 Random Vancomycin 22.6 mcg/mL 09/06/19 14:20 Blood Type O Positive 09/03/19 15:52 Antibody Screen Negative 09/03/19 15:52
[2019-09-18] MEDS: Cholecalciferol TAB* 1000 UNITS PO SCH (10:30)
[2019-09-18] MEDS: traMADol TAB* 50 MG PO PRN ×2 (10:30→19:18)
[2019-09-18] MEDS: Cephalexin CAP* 500 MG PO SCH (10:31)
[2019-09-18] MEDS: Enoxaparin(*) 40 MG/0.4 ML SYR SUBCUT SCH (12:22)
[2019-09-18] MEDS: DOXYcycline CAP(*) 100 MG PO SCH ×2 (12:22→22:57)
[2019-09-18] MEDS: tiZANidine TAB* 2 MG PO SCH ×2 (15:06→22:57)
[2019-09-18] MEDS: Mometasone 220 MCG MDI INH SCH (19:25)
[2019-09-18 21:42] LABS: % Iron Saturation 6 % (15-55); Iron 21 ug/dL (50-212); Total Iron Binding Capacity 347 mcg/dL (250-450); Transferrin 248 mg/dL (203-362)
[2019-09-18 22:07] LABS: Folate > 20.00 ng/mL (>3.99)
[2019-09-18] MEDS: INTERFERON BETA SUBCUT SCH (22:57)
[2019-09-18] MEDS: traZODone TAB* 50 MG TAB PO SCH (22:57)
[2019-09-18] MEDS: Propranolol TAB* 80 MG PO SCH (23:00)
[2019-09-19] MEDS: Morphine TAB Extended Release (*) 15 MG TAB.ER PO SCH ×2 (01:14→13:39)
--- NOTE | 2019-09-19 03:43 | CONS ---
HOSPITAL MEDICINE CONSULTATION REPORT: DATE OF CONSULT: 09/18/19 PROVIDER: Melo Laboy NP ATTENDING PHYSICIAN: Dr. Castaneda. CONSULTING PHYSICIAN: Dr. Odalis Chavez (dictated by Melo Laboy NP). REASON FOR CONSULT: Fever, anemia. HISTORY OF PRESENT ILLNESS: Ms. Agarwal is a 39-year-old female with a past medical history significant for MS, migraines, neuropathy, chronic UTIs, who initially presented to [facility] on 09/03/19 with an ankle fracture. The patient initially had external fixation of her ankle fracture and had repeat surgery on 09/15/19 for an ORIF of the left ankle. Her hospitalization has been uneventful until yesterday morning the patient spiked a fever of 101 and has been afebrile since. The patient denies any chills. She denies any chest pain or edema. She denies any cough, hemoptysis, or shortness of breath. No nausea, vomiting, diarrhea, or abdominal pain. She denies any pain with urination, burning, dysuria. The patient does report that she self caths and generally when she has a UTI, she does feel pain and burning. She denies any visual complaints, dysphagia, arthralgias, myalgias. No psychosis or anxiety. Due to the patient's fever and anemia, Hospital Medicine was asked to see and evaluate the patient. PAST MEDICAL HISTORY: Significant for: 1. MS. 2. Migraines. 3. Depression. 4. Neurogenic bladder. 5. Morbid obesity. PAST SURGICAL HISTORY: 1. Hip surgery as an . 2. Tonsillectomy. 3. . 4. Laminectomy. 5. Breast reduction. 6. Washout after laminectomy mainly for infection. HOME MEDICATIONS: 1. Ibuprofen 400 mg p.o. b.i.d. p.r.n. 2. Tizanidine 4 mg p.o. at bedtime. 3. Folic acid 1 mg p.o. daily. 4. Calcium with vitamin D 1 cap p.o. daily. 5. Lamictal 150 mg p.o. daily. 6. Prazosin 4 mg p.o. at bedtime. 7. Vitamin B12 500 mcg p.o. daily. 8. Duloxetine 60 mg p.o. daily. 9. Wellbutrin 300 mg p.o. daily. 10. Omeprazole 20 mg p.o. daily. 11. Vitamin D 5000 units p.o. daily. 12. VESIcare 10 mg p.o. daily. 13. Trazodone 100 mg at bedtime. 14. Zinc 50 mg p.o. daily. 15. Cytomel 25 mcg p.o. daily. 16. Myrbetriq 25 mg p.o. daily. 17. Dalfampridine 10 mg p.o. b.i.d. 18. Rizatriptan 10 mg as needed for migraines. 19. Zofran 4 mg p.o. q.8 hours as needed. 20. Interferon beta-1a 0.5 injected 3 times per week. 21. Flovent HFA inhaler 2 puffs b.i.d. 22. Albuterol HFA inhaler 2 puffs 4 times daily. 23. Fluticasone nasal spray 2 sprays to both nares b.i.d. 24. Oxycodone 5 to 10 mg every 6 hours as needed for pain. 25. Hiprex 1 g b.i.d. 26. MiraLAX 17 g p.o. daily. 27. FiberCon. 28. Ferrous sulfate 325 mg p.o. daily. 29. Propranolol 120 mg p.o. at bedtime. ALLERGIES: LATEX, NATURAL RUBBER, MACROBID, TREE NUTS, CIPRO - sensitivity as it is not compatible with other medications. FAMILY HISTORY: Mother with a history of hypertension. No reported history of diabetes. Maternal grandmother with breast and cervical cancer. SOCIAL HISTORY: Denies any tobacco, alcohol, or illicit drug use. She lives with her mother. Surrogate decision maker in the event she is unable to make her own decisions is her mother. She is a full code. REVIEW OF SYSTEMS: A 14-point review of systems was completed. All pertinent positives were mentioned in the HPI. PHYSICAL EXAM: General: At this time, Ms. Agarwal is a 39-year-old female. She is alert and oriented, resting in her hospital bed. She is in no acute distress. Vital Signs: Blood pressure 145/90, heart rate 86, respirations are 18, O2 saturation 100%, temperature was 98.5. HEENT: Head is atraumatic, normocephalic. Eyes: EOMs are intact. Sclerae anicteric and not pale. Oral mucosa is moist. Neck is supple. Lungs are clear to auscultation bilaterally. No wheezes, rales, or rhonchi. Cardiac: S1, S2. Regular rate and rhythm. No rubs or gallops. Abdomen is obese, soft, nontender. Bowel sounds are present x4. Extremities: She is able to move all 4 extremities. She does have a cast that is intact to her left lower leg. Sensation is intact to her toes. Cap refill is less than 2 seconds. Neurologic: She is awake, alert , oriented x3. Speech is clear. Thought process is intact. Skin: She does have a cast intact to her left lower leg. DIAGNOSTIC STUDIES/LAB DATA: WBCs are 5.5, RBCs 3.03, hemoglobin 8.1, hematocrit is 25, platelet count is 301. ESR yesterday 09/17/19 was 81. INR on 09/15/19 was 1.09. Sodium 138, potassium 3.7, chloride 102, carbon dioxide was 32, anion gap was 4, BUN was 9, creatinine 0.58, glucose was 108. C- reactive protein is trending down and today it was 72.69. IMPRESSION AND PLAN: Ms. Agarwal is a 39-year-old female with a past medical history significant for multiple sclerosis, neuropathy, history of migraines, neurogenic bladder, chronic urinary tract infections, who presented to [facility] after sustaining a left ankle fracture. Our recommendations are as follows: 1. Status post ORIF of the left ankle. Management per Orthopedics. PT/OT per Orthopedics. Bowel regimen per Orthopedics. Pain management per Orthopedics. 2. Fever. The patient does not currently have any symptomatology of urinary tract infection, no cough, or congestion or shortness of breath to suggest a pneumonia. She did have a chest x-ray that shows no acute disease process. I suspect her elevation in temperature is related to atelectasis. We will continue to monitor. Should the patient develop further fevers, I would recommend sending a urine for UA. I would encourage the patient to continue to use her incentive spirometer, take deep breaths and cough. 3. Anemia. The patient does have an H and H of 8.1 and 25 today. I suspect this is related to hemodilution from IV fluids she received during surgeries and blood loss from her ankle fracture. I would recommend continuing to monitor this. She can continue on iron as prescribed. The patient denies any black or tarry stools. Denies any vomiting up blood. Again I suspect that her anemia is related to acute blood loss anemia from her ankle fracture as well as dilution from receiving IV fluids during surgery. The patient is without tachycardia or hypotension at this time and does not have any signs of acute bleeding. 4. Multiple sclerosis. The patient should continue on medications as previously prescribed. 5. Neurogenic bladder. She should continue on her home medications, VESIcare and Myrbetriq as previously prescribed. The patient should continue self cathing as needed. 6. Depression. She should continue on her Cymbalta and Lamictal as previously prescribed. 7. Neuropathy. The patient can continue her tizanidine as previously prescribed. 8. FEN: She can have a regular diet. 9. Code status: She is a full code. 10. DVT prophylaxis: As per Orthopedics. TIME SPENT: Time spent on this consultation was 45 minutes, greater than half that time was spent at the bedside reviewing events leading thus far to her hospitalization, performing physical exam, and reviewing my plan of care. I have discussed this with my attending, Dr. Odalis Chavez; she is in agreement with my plan. MELO LABOY, [place] [id number]/CPS #: [id number] MTDD
[2019-09-19] MEDS: tiZANidine TAB* 2 MG PO SCH ×3 (05:07→22:08)
[2019-09-19] MEDS: Acetaminophen TAB* 325 MG PO SCH ×3 (05:07→22:07)
[2019-09-19] MEDS: Liothyronine TAB* 25 MCG PO SCH (05:07)
[2019-09-19 05:50] LABS: ABS Basophils 0.1 10^3/ul (0-0.2); ABS Eosinophils 0.2 10^3/ul (0-0.6); ABS Lymphocytes 1.4 10^3/ul (1.0-4.8); ABS Monocytes 0.4 10^3/ul (0-0.8); ABS Neutrophils 3.4 10^3/ul (1.5-7.7); Eosinophil % 3.5 %; Hematocrit 27 % (35-47); Hemoglobin 8.9 g/dL (12.0-16.0); Lymphocyte % 25.2 %; Mean Corpuscular HGB Conc 33 g/dL (31-36); Mean Corpuscular Hemoglobin 27 pg (27-31); Mean Corpuscular Volume 81 fL (80-97); Mean Platelet Volume 7.1 fL (7.4-10.4); Nucleated Red Blood Cells % 0.1; Platelet Count 365 10^3/uL (150-450); Red Blood Count 3.35 10^6 /uL (3.70-4.87); Red Cell Distribution Width 17 % (10-15); White Blood Count 5.4 10^3/uL (3.5-10.8)
[2019-09-19] MEDS: Fluticasone NASAL SPRAY 50MCG* 16 gm SPRAY BTL BOTH NARES SCH ×2 (08:56→20:36)
[2019-09-19] MEDS: PTO: Mirabegron (NF) 25 MG TAB PO SCH (08:56)
[2019-09-19] MEDS: PTO: Solifenacin(NF) 10 MG TAB PO SCH (08:57)
[2019-09-19] MEDS: DALFAMPRIDINE 10 MG PO SCH ×2 (08:57→20:32)
[2019-09-19] MEDS: Cholecalciferol TAB* 1000 UNITS PO SCH (08:58)
[2019-09-19] MEDS: Magnesium Hydroxide LIQ* 30 ML UDC PO SCH ×2 (08:58→20:21)
[2019-09-19] MEDS: Methenamine Hippurate TAB* 1 GM TAB PO SCH ×2 (08:58→20:35)
[2019-09-19] MEDS: Docusate CAP* 100 MG PO SCH ×2 (08:59→20:32)
[2019-09-19] MEDS: Vitamin THERAPEUTIC TAB PO SCH (08:59)
[2019-09-19] MEDS: Calcium/Vitamin D TAB 250/125* TAB PO SCH (09:00)
[2019-09-19] MEDS: DOXYcycline CAP(*) 100 MG PO SCH ×2 (09:01→20:32)
[2019-09-19] MEDS: BuPROPion XL* 300 MG TAB.XL PO SCH (09:01)
[2019-09-19] MEDS: Ferrous Sulfate TAB* 325 MG PO SCH ×2 (09:01→20:34)
[2019-09-19] MEDS: Pantoprazole TAB * 40 MG TAB PO SCH (09:01)
[2019-09-19] MEDS: DULoxetine DR CAP* 60 MG CAP.DR PO SCH (09:02)
[2019-09-19] MEDS: lamoTRIgine TAB(*) 100 MG PO SCH (09:02)
[2019-09-19] MEDS: Calcium Polycarbophil TAB* 625 MG PO SCH (09:02)
[2019-09-19] MEDS: Cyanocobalamin TAB* 500 MCG PO SCH (09:03)
[2019-09-19] MEDS: Folic Acid TAB* 1 MG PO SCH (09:03)
[2019-09-19 09:26] LABS: Erythrocyte Sed Rate 79 mm/Hr (0-19)
[2019-09-19] MEDS: traMADol TAB* 50 MG PO PRN (11:26)
[2019-09-19] MEDS: Enoxaparin(*) 40 MG/0.4 ML SYR SUBCUT SCH (11:26)
--- NOTE | 2019-09-19 12:38 | PN ---
Progress Note - Progress Note Date of Service: 09/19/19 SOAP: Subjective: []Pt seen at bedside. She feels well without complaints. Denies CP, cough, SOB, dizziness, nausea, dysuria. Numbness of LLE resolved, back to baseline. Improved ability to f/e toes. Objective: [] Gen: NAD, appears well LLE: Lower leg cast in place. Toes with f/e MTPs 1-4 intact, 5 not well exposed in cast. Sensation intact to light touch and reported as baseline throughout all exposed portions of LLE. All digits warm and well perfused with cap refill less than two seconds distally. Able to place 2 fingers between skin and cast, not appearing overly tight. No pain with passive stretch of digits. Assessment: []1. POD 5 ORIF left ankle trimall fracture dislocation 2. POD 16 ex-fix left ankle trimall fracture dislocation 3. Morbid obesity with BMI 54.5, weight 380 lbs 4. Multiple sclerosis 5. Baseline bilateral lower extremity neuropathy status post lumbar spine excision of tumor and/or multiple sclerosis 6. New onset (with fracture) palsy left toes 7. Distant past history of perioperative infection with MRSA with lumbar spineand with breast surgery 8. Postop fever 9. Anemia. Likely combo of acute bloodloss anemia and hemodilution Plan: - Remains afebrile and asymptomatic. Atelectasis most likely source. UA and incision to be checked with any recurrence of fevers - Anemia: H&H improved today, no sign of active bleeding. - No indication of a wound infection on exam. CRP still trending down slowly, will watch another day while in house - Strict elevation left lower extremity - Disposition planning. Due to delay of hospital bed to her home she will stay in house until tomorrow when it is able to be delivered. - Physical therapy and non-weight bearing left lower extremity - Prophylactic abx with Dr Castaneda and ID -doxy 100 bid for 10 days - F/U Dr Castaneda in 1 week for wound check and cast change - DC tomorrow to home Vital Signs Temp 98.1 F 09/19/19 12:00 Pulse 74 09/19/19 12:00 Resp 16 09/19/19 12:00 BP 132/74 09/19/19 12:00 Pulse Ox 92 09/19/19 12:00 Intake & Output 09/18/19 09/19/19 09/19/19 18:59 06:59 18:59 Intake Total 920 1860 Output Total 1150 1050 600 Balance -230 810 -600 Intake: Oral 920 1860 Output: Straight Cath 1150 1050 600 Other: Date of Last Bowel 09/18/28 Movement # Bowel Movements 1 0 Estimated Stool Amount Medium Laboratory Last Values WBC 5.4 10^3/uL (3.5-10.8) 09/19/19 05:31 RBC 3.35 10^6 /uL (3.70-4.87) L 09/19/19 05:31 Hgb 8.9 g/dL (12.0-16.0) L 09/19/19 05:31 Hct 27 % (35-47) L 09/19/19 05:31 MCV 81 fL (80-97) 09/19/19 05:31 MCH 27 pg (27-31) 09/19/19 05:31 MCHC 33 g/dL (31-36) 09/19/19 05:31 RDW 17 % (10-15) H 09/19/19 05:31 Plt Count 365 10^3/uL (150-450) 09/19/19 05:31 MPV 7.1 fL (7.4-10.4) L 09/19/19 05:31 Neut % (Auto) 62.7 % 09/19/19 05:31 Lymph % (Auto) 25.2 % 09/19/19 05:31 Ashley % (Auto) 7.6 % 09/19/19 05:31 Eos % (Auto) 3.5 % 09/19/19 05:31 Baso % (Auto) 1.0 % 09/19/19 05:31 Absolute Neuts (auto) 3.4 10^3/ul (1.5-7.7) 09/19/19 05:31 Absolute Lymphs (auto) 1.4 10^3/ul (1.0-4.8) 09/19/19 05:31 Absolute Monos (auto) 0.4 10^3/ul (0-0.8) 09/19/19 05:31 Absolute Eos (auto) 0.2 10^3/ul (0-0.6) 09/19/19 05:31 Absolute Basos (auto) 0.1 10^3/ul (0-0.2) 09/19/19 05:31 Absolute Nucleated RBC 0.0 10^3/ul 09/19/19 05:31 Neutrophils % 67.0 % 09/12/19 05:55 Lymphocytes % 17.0 % 09/12/19 05:55 Monocytes % 13.0 % 09/12/19 05:55 Eosinophils % 3.0 % 09/12/19 05:55 Nucleated RBC % 0.1 09/19/19 05:31 Normal RBC Morphology Normal (Normal) 09/12/19 05:55 ESR 79 mm/Hr (0-19) H 09/19/19 05:31 Hem Pathologist Commnt 09/12/19 05:55 INR (Anticoag Therapy) 1.09 (0.82-1.09) 09/15/19 05:21 Sodium 138 mmol/L (135-145) 09/18/19 05:04 Potassium 3.7 mmol/L (3.5-5.0) 09/18/19 05:04 Chloride 102 mmol/L (101-111) 09/18/19 05:04 Carbon Dioxide 32 mmol/L (22-32) 09/18/19 05:04 Anion Gap 4 mmol/L (2-11) 09/18/19 05:04 BUN 9 mg/dL (6-24) 09/18/19 05:04 Creatinine 0.58 mg/dL (0.51-0.95) 09/18/19 05:04 Est GFR ( Amer) 141.5 (>60) 09/18/19 05:04 Est GFR (Non-Af Amer) 117.0 (>60) 09/18/19 05:04 BUN/Creatinine Ratio 15.5 (8-20) 09/18/19 05:04 Glucose 108 mg/dL (70-100) H 09/18/19 05:04 Calcium 8.8 mg/dL (8.6-10.3) 09/18/19 05:04 Iron 21 ug/dL (50-212) L 09/18/19 05:04 TIBC 347 mcg/dL (250-450) 09/18/19 05:04 % Saturation 6 % (15-55) L 09/18/19 05:04 Unsat Iron Binding < 332 ug/dL 09/18/19 05:04 Transferrin 248 mg/dL (203-362) 09/18/19 05:04 C-Reactive Protein 68.83 mg/L (<8.01) H 09/19/19 05:31 Vitamin B12 462 pg/mL (180-914) 09/18/19 05:04 Folate > 20.00 ng/mL (>3.99) 09/18/19 05:04 Vancomycin Trough < 2.0 mcg/mL 09/14/19 05:24 Random Vancomycin 22.6 mcg/mL 09/06/19 14:20 Blood Type O Positive 09/03/19 15:52 Antibody Screen Negative 09/03/19 15:52 <Crystal Mcclendon - Last Filed: 09/19/19 12:39> - Progress Note SOAP: Subjective: Spoke with patient again about the importance of left lower extremity elevation. Spoke with her about notifying me if at home there are fevers or an increase in pain. Spoke about our needing to be vigilant about possible future wound and/or infection problems given her MS, ankle swelling, and history of infections after prior spine and breast surgeries. <Shen Castaneda - Last Filed: 09/19/19 21:29>
[2019-09-19] MEDS ORDERED: oxyCODONE TAB* 5 MG TAB PO PRN (15:53)
[2019-09-19] MEDS: Mometasone 220 MCG MDI INH SCH (20:14)
[2019-09-19] MEDS: Propranolol TAB* 80 MG PO SCH (20:33)
[2019-09-19] MEDS: traZODone TAB* 50 MG TAB PO SCH (20:34)
[2019-09-19] MEDS: oxyCODONE TAB* 5 MG TAB PO PRN (20:34)
[2019-09-20] MEDS: Morphine TAB Extended Release (*) 15 MG TAB.ER PO SCH ×2 (01:35→13:12)
[2019-09-20 05:56] LABS: ABS Eosinophils 0.2 10^3/ul (0-0.6); ABS Monocytes 0.5 10^3/ul (0-0.8); ABS Neutrophils 3.3 10^3/ul (1.5-7.7); Eosinophil % 3.2 %; Hematocrit 27 % (35-47); Hemoglobin 8.8 g/dL (12.0-16.0); Lymphocyte % 33.9 %; Mean Corpuscular HGB Conc 33 g/dL (31-36); Mean Corpuscular Hemoglobin 27 pg (27-31); Mean Corpuscular Volume 81 fL (80-97); Mean Platelet Volume 7.3 fL (7.4-10.4); Platelet Count 388 10^3/uL (150-450); Red Blood Count 3.31 10^6 /uL (3.70-4.87); Red Cell Distribution Width 17 % (10-15)
[2019-09-20] MEDS: Acetaminophen TAB* 325 MG PO SCH ×2 (06:14→13:12)
[2019-09-20] MEDS: oxyCODONE TAB* 5 MG TAB PO PRN ×2 (06:14→11:44)
[2019-09-20] MEDS: tiZANidine TAB* 2 MG PO SCH ×2 (06:14→13:12)
[2019-09-20] MEDS: Liothyronine TAB* 25 MCG PO SCH (06:14)
[2019-09-20] MEDS: Fluticasone NASAL SPRAY 50MCG* 16 gm SPRAY BTL BOTH NARES SCH (08:55)
[2019-09-20] MEDS: Polyethylene Glycol 3350* 17 GM PACKET PO PRN (08:55)
[2019-09-20] MEDS: DALFAMPRIDINE 10 MG PO SCH (08:56)
[2019-09-20] MEDS: Methenamine Hippurate TAB* 1 GM TAB PO SCH (08:56)
[2019-09-20] MEDS: PTO: Solifenacin(NF) 10 MG TAB PO SCH (08:56)
[2019-09-20] MEDS: Ferrous Sulfate TAB* 325 MG PO SCH (08:57)
[2019-09-20] MEDS: Pantoprazole TAB * 40 MG TAB PO SCH (08:57)
[2019-09-20] MEDS: Cholecalciferol TAB* 1000 UNITS PO SCH (08:57)
[2019-09-20] MEDS: Docusate CAP* 100 MG PO SCH (08:57)
[2019-09-20] MEDS: BuPROPion XL* 300 MG TAB.XL PO SCH (08:57)
[2019-09-20] MEDS: DULoxetine DR CAP* 60 MG CAP.DR PO SCH (08:57)
[2019-09-20] MEDS: DOXYcycline CAP(*) 100 MG PO SCH (08:58)
[2019-09-20] MEDS: Calcium/Vitamin D TAB 250/125* TAB PO SCH (08:58)
[2019-09-20] MEDS: Folic Acid TAB* 1 MG PO SCH (08:58)
[2019-09-20] MEDS: Vitamin THERAPEUTIC TAB PO SCH (08:58)
[2019-09-20] MEDS: Calcium Polycarbophil TAB* 625 MG PO SCH (08:58)
[2019-09-20] MEDS: Cyanocobalamin TAB* 500 MCG PO SCH (08:59)
[2019-09-20] MEDS: lamoTRIgine TAB(*) 100 MG PO SCH (08:59)
[2019-09-20] MEDS: PTO: Mirabegron (NF) 25 MG TAB PO SCH (09:02)
[2019-09-20] MEDS: Magnesium Hydroxide LIQ* 30 ML UDC PO SCH (09:02)
[2019-09-20] MEDS: Enoxaparin(*) 40 MG/0.4 ML SYR SUBCUT SCH (11:44)
[2019-09-20 12:20] VITALS: BP 101/59
--- NOTE | 2019-09-20 12:33 | DS ---
Orthopedic Discharge Summary - Discharge Summary Date of Admission:09/03/19 Date of Discharge: [] Date of Surgery: [] Attending Orthopedic Provider: [] Pre-operative Diagnosis: [] Operative Procedure: [] Disposition of Patient:[] Home care vs Outpatient services: [] Condition of Patient: [] Pain medication RX at discharge: [] DVT prophylaxis RX at discharge: [] History: SHANI HANSEN is a 39 year old F with years of increasingly severe [] pain. Patient has failed conservative management and has elected to undergo a [] total [] replacement Hospital Course: SHANI was admitted to [facility] on 09/03/19. Patient underwent a [] without complication followed by a brief recovery in PACU and transfer to the Short Stay Surgical Unit in stable condition. Our hospitalist service, physical therapy and occupational therapy also participated in this patients care. Post-op day 1: patient was alert and in no acute distress. Dressing was clean, dry and intact. Operative extremity dorsiflexion and plantarflexion intact, sensation intact to light touch distally , DP2+. Post-op day two: dressing was changed, incision was clean, dry and intact. Patient was deemed to be medically and orthopedically stable for discharge. Physical therapy goals were met. Home Medications Medication Instructions Recorded Confirmed Type DULoxetine DR CAP* [Cymbalta CAP*] 60 mg PO DAILY 11/24/15 09/03/19 History Prazosin 1 mg CAP [Minipress 1 mg 4 mg PO BEDTIME 11/24/15 09/03/19 History CAP] traZODone TAB* [Desyrel TAB*] 100 mg PO BEDTIME 11/24/15 09/03/19 History Interferon Beta 1a (NF) [Rebif 0.5 ml INJ .3X/WEEK 01/23/17 09/03/19 History (NF)] Albuterol HFA INHALER* [Ventolin 2 puff INH QID PRN 06/20/18 09/03/19 History HFA Inhaler*] Fluticasone HFA 110 mcg(NF) 2 puff INH BID 06/20/18 09/03/19 History [Flovent HFA 110 mcg(NF)] Zinc 50 mg PO DAILY 06/20/18 09/03/19 History Propranolol TAB* [Inderal TAB*] 120 mg PO BEDTIME 08/29/18 09/03/19 History Rizatriptan ODT (NF) [Maxalt-[employer] 10 mg PO ONCE MDD 2 tabs/day 08/29/18 09/03/19 History (NF)] Solifenacin(NF) [Vesicare(NF)] 10 mg PO DAILY 08/29/18 09/03/19 History lamoTRIgine TAB(*) [Lamictal 150 mg PO DAILY 08/29/18 09/03/19 History TAB(*)] Mirabegron [Myrbetriq] 25 mg PO DAILY 04/19/19 09/03/19 History Bupropion XL* [Wellbutrin XL *] 300 mg PO DAILY 09/03/19 09/03/19 History Calcium Carbonate/Vitamin D3 1 cap PO DAILY 09/03/19 09/03/19 History [Calcium 600+D Softgel] Calcium Polycarbophil TAB* 625 - 1,250 mg PO DAILY 09/03/19 09/03/19 History [Fibercon TAB*] Cholecalciferol TAB* [Vitamin D 5,000 units PO DAILY 09/03/19 09/03/19 History TAB*] Cyanocobalamin TAB* [Vitamin B12 500 mcg PO DAILY 09/03/19 09/03/19 History TAB*] Dalfampridine [Dalfampridine ER] 10 mg PO BID 09/03/19 09/03/19 History Ferrous Sulfate TAB* 325 mg PO DAILY 09/03/19 09/03/19 History Fluticasone NASAL SPRAY 50MCG* 2 spray BOTH NARES BID 09/03/19 09/03/19 History [Flonase NASAL SPRAY 50MCG*] Folic Acid TAB* [Folvite TAB*] 1 mg PO DAILY 09/03/19 09/03/19 History Liothyronine TAB* [Cytomel TAB*] 25 mcg PO DAILY 09/03/19 09/03/19 History Methenamine Hippurate TAB* [Hiprex 1 gm PO BID 09/03/19 09/03/19 History TAB*] Omeprazole CAP (NF) [Prilosec CAP* 20 mg PO DAILY 09/03/19 09/03/19 History 20 MG] Ondansetron TAB* [Zofran 4 MG Tab*] 4 mg PO Q8H PRN 09/03/19 09/03/19 History Polyethylene Glycol 3350* [Miralax 17 gm PO DAILY PRN 09/03/19 09/03/19 History (17 GM DOSE ASHWINI)] DOXYcycline CAP(*) [DOXYcycline 100 mg PO BID #15 cap 09/20/19 Rx 100MG CAP(*)] Docusate CAP* [Colace Cap*] 100 mg PO BID #0 cap 09/20/19 Rx Enoxaparin(*) [Lovenox(*)] 40 mg SUBCUT Q24H #30 syringe 09/20/19 Rx Morphine TAB Extended Rel(*) [Ms 15 mg PO Q12H #10 tab.er MDD 2 09/20/19 Rx Contin(*)] oxyCODONE TAB* [Roxycodone TAB 5 5 mg PO Q4H PRN tab MDD 10 09/20/19 Rx mg*] oxyCODONE TAB* [Roxycodone TAB 5 10 mg PO Q4H PRN #50 tab MDD 10 09/20/19 Rx mg*] tiZANidine TAB* [Zanaflex TAB*] 2 mg PO Q8HR PRN #30 tab 09/20/19 Rx Discharge Instructions following Orthopedic Surgery: Activity: * nonweightbearing left leg * Continue physical therapy and occupational therapy exercises as shown * you have elected to have home physical therapy, continue therapy exercises at home. Idegrees/squat Wound care: * OK to shower but do not get your cast wet. If wet or soiled call ortho office. Call Orthopedic office for: * Increased drainage * Increased swelling * Redness * Increased pain * Fever Go to ER with shortness of breath or chest pain. Diet: * Regular diet * Increase fluids and fiber to prevent constipation. * Continue to use stool softeners, call office if no bowel motion within 48 hours. Medications See Home Medication List in your packet for medications that you should take after discharge. DVT Prophylaxis: Lovenox Dosing: [40] mg once a day. Increases bleeding tendency Antibiotic: Doxycycline 100 mg every 12 hours for 15 more doses ( total of 10 days). You had your morning dose 09/20, need afternoon dose Pain Control: Percocet 5/325 mg 1 tab for moderate pain and 2 tabs for severe pain by mouth every 4 hours as needed. Maximum of 10 tabs per day. Hold for sedation , wean off as soon as pain allows Please note that Percocet contains Tylenol (acetaminophen). Maximum daily dose of Tylenol is 4000 mg from all sources. MS Contin 15 mg 1 tab every 12 hours for most severe intolerable pain. Stop this medication as soon as pain is tolerable. Hold for sedation and wean off as soon as pain allows Zanaflex 2 mg take 1 tab every 8 hours as needed for muscle spasm. hold for sedation, wean off as soon as pain allows. FOLLOW UP: Follow up with [Leonel] Within [7] days, call for appointment Please call our office with any questions or concerns ([phone]) [facility]
== END 2019-09-20 16:30 | disposition home health service (06) | DRG 493 ==
LOC: ED 10:51 → SSU 15:27 → ED 16:52
PROVIDERS: ADMIT Physician Assistant; ATTEND Physician Assistant
PROC: 0QSK34Z Reposition Left Fibula with Internal Fixation Device, Percutaneous Approach (ICD-10-PCS; 2019-09-03)
PROC: 0QSHXZZ Reposition Left Tibia, External Approach (ICD-10-PCS; 2019-09-03)
PROC: 0QSH0ZZ Reposition Left Tibia, Open Approach (ICD-10-PCS; 2019-09-14)
PROC: 0QP Lower Bones, Removal (ICD-10-PCS; 2019-09-14)
PROC: 0QPH05Z Removal of External Fixation Device from Left Tibia, Open Approach (ICD-10-PCS; 2019-09-14)
PROC: 0QSK04Z Reposition Left Fibula with Internal Fixation Device, Open Approach (ICD-10-PCS; principal; 2019-09-14 12:15)
DX: S82.852A Displaced trimalleolar fracture of left lower leg, initial encounter for closed fracture (principal); Z68.43 Body mass index [BMI] 50.0-59.9, adult; W00.2XXA Other fall from one level to another due to ice and snow, initial encounter; G35 Multiple sclerosis; F32.9 Major depressive disorder, single episode, unspecified; G43.909 Migraine, unspecified, not intractable, without status migrainosus; N31.9 Neuromuscular dysfunction of bladder, unspecified; R15.9 Full incontinence of feces; J45.909 Unspecified asthma, uncomplicated; F41.9 Anxiety disorder, unspecified; E66.01 Morbid (severe) obesity due to excess calories; G62.9 Polyneuropathy, unspecified; F43.10 Post-traumatic stress disorder, unspecified; S94.92XA Injury of unspecified nerve at ankle and foot level, left leg, initial encounter; R50.82 Postprocedural fever; D64.9 Anemia, unspecified; Y92.89 Other specified places as the place of occurrence of the external cause; Z88.1 Allergy status to other antibiotic agents; Z91.040 Latex allergy status; Z91.018 Allergy to other foods; Z86.14 Personal history of Methicillin resistant Staphylococcus aureus infection; Z87.440 Personal history of urinary (tract) infections; Z79.899 Other long term (current) drug therapy
CPT/HCPCS: 36415; 71045; 71046; 76000; 80048; 80202; 82565; 82607; 82746; 83540; 83550; 84520; 85014; 85018; 85025; 85049; 85060; 85610; 85652; 86140; 86850; 86900; 86901; 87040; 93005; 94640; 96374; 96375; 96376; 99284; A9270-GY; C1713; C1776; J0690; J1100; J1170; J1644; J1650; J1885; J2250; J2270; J2405; J2704; J3010; J3370

== ENCOUNTER 2021-07-02 16:25 | Inpatient (IN) ==
[2021-07-02] MEDS ORDERED: NS 0.9% 1000 ml BAG 1,000 ML IV ONE (17:00)
[2021-07-02] MEDS ORDERED: Dexamethasone IV 4 MG/ML VIAL 1 ml VIAL IV SLOW PU ONE (17:01)
[2021-07-02 17:03] LABS: ABS Lymphocytes 0.8 10^3/ul (1.0-4.8); ABS Monocytes 0.3 10^3/ul (0-0.8); ABS Neutrophils 2.4 10^3/ul (1.5-7.7); Eosinophil % 0.1 %; Hematocrit 39 % (35-47); Hemoglobin 13.3 g/dL (12.0-16.0); Mean Corpuscular HGB Conc 34 g/dL (31-36); Mean Corpuscular Hemoglobin 27 pg (27-31); Mean Corpuscular Volume 82 fL (80-97); Mean Platelet Volume 7.7 fL (7.4-10.4); Nucleated Red Blood Cells % 0.1; Platelet Count 254 10^3/uL (150-450); Red Blood Count 4.84 10^6 /uL (3.70-4.87); Red Cell Distribution Width 15 % (10-15); White Blood Count 3.5 10^3/uL (3.5-10.8)
[2021-07-02 17:27] LABS: Activated Partial Thrombo Time 34.3 seconds (26.0-38.0); INR 1.29 (0.86-1.15)
[2021-07-02 17:28] LABS: Albumin 3.7 g/dL (3.2-5.2); Albumin/Globulin Ratio 1.4 (1-3); C Reactive Protein 177.78 mg/L (<8.01); Calcium 8.9 mg/dL (8.6-10.3); Globulin 2.7 g/dL (2-4); Potassium 3.2 mmol/L (3.5-5.0); Total Bilirubin 0.4 mg/dL (0.2-1.0); Total Protein 6.4 g/dL (6.4-8.9); eGFR CKD-EPI 116.6 (>60)
[2021-07-02 17:51] LABS: Ferritin 269.5 ng/mL (11-307)
[2021-07-02] MEDS ORDERED: Albuterol HFA INHALER 8 gm MDI INH ONE (17:51)
[2021-07-02] MEDS ORDERED: Polyethylene Glycol 3350 17 GM PACKET PO PRN (19:43)
[2021-07-02] MEDS ORDERED: Fluticasone NASAL SPRAY 50MCG 16 gm SPRAY BTL BOTH NARES PRN (19:43)
[2021-07-02] MEDS ORDERED: Albuterol HFA INHALER 8 gm MDI INH PRN (19:50)
[2021-07-02 20:30] LABS: Rapid COVID-19 Molecular Detected (Undetected)
[2021-07-02] MEDS ORDERED: Remdesivir 100 mg Vial 200 MG in NS 0.9% 250 ml 210 ML IV ONE (20:30)
[2021-07-02 20:39] LABS: Influenza A Molecular Negative (Negative); Influenza B Molecular Negative (Negative)
[2021-07-02] MEDS ORDERED: Potassium Chloride LIQUID 20 MEQ/15 ML LIQUID PO ONE (20:39)
[2021-07-03] MEDS: Enoxaparin 40 MG/0.4 ML SYR SUBCUT SCH ×2 (00:46→20:14)
[2021-07-03] MEDS: DALFAMPRIDINE 10 MG PO SCH ×3 (00:47→20:22)
[2021-07-03 06:20] LABS: Calcium 8.7 mg/dL (8.6-10.3); Potassium 3.4 mmol/L (3.5-5.0); eGFR CKD-EPI 123.5 (>60)
[2021-07-03 07:41] LABS: Magnesium 1.9 mg/dL (1.9-2.7)
[2021-07-03] MEDS: cefTRIAXone 1 gm/50 mL NS BAG 1 GM/50 ML BAG IVPB SCH (07:42)
[2021-07-03] MEDS ORDERED: Solifenacin 10 mg TAB (NF) PO SCH (09:00)
[2021-07-03] MEDS: DULoxetine DR 60 mg CAP PO SCH (09:39)
[2021-07-03] MEDS: Mirabegron 25 mg ER TAB (NF) PO SCH (10:13)
[2021-07-03] MEDS: Calcium/Vitamin D TAB 250/125 TAB PO SCH (12:49)
[2021-07-03] MEDS ORDERED: Potassium Chlor 20 meq TAB.ER PO ONE (14:03)
[2021-07-03] MEDS: CMCS: Baricitinib 2 MG TAB (NF) PO SCH (14:54)
[2021-07-03] MEDS: Lactated Ringers 1000 ml BAG 1,000 ML IV SCH (14:54)
[2021-07-03] MEDS ORDERED: Ondansetron 4 mg VIAL 2 MG/ML 2 ml VIAL IV PRN (18:08)
[2021-07-03] MEDS ORDERED: Lorazepam PYXIS KEY PRN (18:15)
[2021-07-03] MEDS: LORazepam 2 mg VIAL 1 ml IV PUSH PRN (18:23)
[2021-07-03] MEDS: Remdesivir 100 mg Vial 100 MG in NS 0.9% 250 ml 230 ML IV SCH (21:52)
[2021-07-04] MEDS: cefTRIAXone 1 gm/50 mL NS BAG 1 GM/50 ML BAG IVPB SCH (06:07)
[2021-07-04] MEDS: DULoxetine DR 60 mg CAP PO SCH (08:10)
[2021-07-04] MEDS: DALFAMPRIDINE 10 MG PO SCH ×2 (08:11→21:04)
[2021-07-04] MEDS: Mirabegron 25 mg ER TAB (NF) PO SCH (08:11)
[2021-07-04] MEDS: LORazepam 2 mg VIAL 1 ml IV PUSH PRN ×2 (08:19→20:42)
[2021-07-04 09:23] LABS: ABS Lymphocytes 0.8 10^3/ul (1.0-4.8); ABS Monocytes 0.6 10^3/ul (0-0.8); ABS Neutrophils 4.3 10^3/ul (1.5-7.7); Hematocrit 37 % (35-47); Hemoglobin 12.1 g/dL (12.0-16.0); Lymphocyte % 14.2 %; Mean Corpuscular HGB Conc 33 g/dL (31-36); Mean Corpuscular Hemoglobin 27 pg (27-31); Mean Corpuscular Volume 82 fL (80-97); Mean Platelet Volume 7.6 fL (7.4-10.4); Platelet Count 309 10^3/uL (150-450); Red Blood Count 4.46 10^6 /uL (3.70-4.87); Red Cell Distribution Width 15 % (10-15); White Blood Count 5.7 10^3/uL (3.5-10.8)
[2021-07-04 09:41] LABS: Albumin 3.4 g/dL (3.2-5.2); Albumin/Globulin Ratio 1.3 (1-3); Calcium 8.8 mg/dL (8.6-10.3); Globulin 2.6 g/dL (2-4); Magnesium 1.8 mg/dL (1.9-2.7); Potassium 3.8 mmol/L (3.5-5.0); Total Bilirubin 0.3 mg/dL (0.2-1.0); eGFR CKD-EPI 122.9 (>60)
[2021-07-04] MEDS: Lactated Ringers 1000 ml BAG 1,000 ML IV SCH (09:50)
[2021-07-04] MEDS: CMCS: Baricitinib 2 MG TAB (NF) PO SCH (13:17)
[2021-07-04] MEDS: Calcium/Vitamin D TAB 250/125 TAB PO SCH (13:17)
[2021-07-04] MEDS: Remdesivir 100 mg Vial 100 MG in NS 0.9% 250 ml 230 ML IV SCH (20:47)
[2021-07-04] MEDS: Enoxaparin 40 MG/0.4 ML SYR SUBCUT SCH (21:03)
[2021-07-05] MEDS: cefTRIAXone 1 gm/50 mL NS BAG 1 GM/50 ML BAG IVPB SCH (05:17)
[2021-07-05] MEDS: LORazepam 2 mg VIAL 1 ml IV PUSH PRN (05:32)
[2021-07-05] MEDS ORDERED: Magnesium Sulfate 2 gm BAG 2 GM/50 ML BAG IVPB ONE (08:00)
[2021-07-05] MEDS: DULoxetine DR 60 mg CAP PO SCH (08:44)
[2021-07-05] MEDS: DALFAMPRIDINE 10 MG PO SCH ×2 (08:45→20:50)
[2021-07-05] MEDS: Mirabegron 25 mg ER TAB (NF) PO SCH (08:45)
[2021-07-05] MEDS: Prochlorperazine 5 mg/ml 2 ml VIAL (10 mg) IV PRN ×2 (08:51→21:53)
[2021-07-05] MEDS: Calcium/Vitamin D TAB 250/125 TAB PO SCH (11:42)
[2021-07-05] MEDS: CMCS: Baricitinib 2 MG TAB (NF) PO SCH (12:51)
[2021-07-05] MEDS: Remdesivir 100 mg Vial 100 MG in NS 0.9% 250 ml 230 ML IV SCH (21:31)
[2021-07-05] MEDS: Enoxaparin 40 MG/0.4 ML SYR SUBCUT SCH (21:34)
[2021-07-06] MEDS: cefTRIAXone 1 gm/50 mL NS BAG 1 GM/50 ML BAG IVPB SCH (05:55)
[2021-07-06 06:04] LABS: ABS Lymphocytes 0.8 10^3/ul (1.0-4.8); ABS Monocytes 0.8 10^3/ul (0-0.8); ABS Neutrophils 3.5 10^3/ul (1.5-7.7); Hematocrit 40 % (35-47); Hemoglobin 12.9 g/dL (12.0-16.0); Lymphocyte % 15.8 %; Mean Corpuscular HGB Conc 33 g/dL (31-36); Mean Corpuscular Hemoglobin 27 pg (27-31); Mean Corpuscular Volume 83 fL (80-97); Mean Platelet Volume 7.7 fL (7.4-10.4); Nucleated Red Blood Cells % 0.1; Platelet Count 332 10^3/uL (150-450); Red Blood Count 4.79 10^6 /uL (3.70-4.87); Red Cell Distribution Width 15 % (10-15)
[2021-07-06 06:32] LABS: C Reactive Protein 55.18 mg/L (<8.01); Calcium 8.8 mg/dL (8.6-10.3); Magnesium 2.1 mg/dL (1.9-2.7); Phosphorus 3.3 mg/dL (2.5-5.0); Potassium 4.1 mmol/L (3.5-5.0); eGFR CKD-EPI 126.8 (>60)
[2021-07-06] MEDS: DULoxetine DR 60 mg CAP PO SCH (10:03)
[2021-07-06] MEDS: Prochlorperazine 5 mg/ml 2 ml VIAL (10 mg) IV PRN ×2 (10:06→17:29)
[2021-07-06] MEDS: DALFAMPRIDINE 10 MG PO SCH ×2 (10:12→19:22)
[2021-07-06] MEDS: Mirabegron 25 mg ER TAB (NF) PO SCH (10:13)
[2021-07-06] MEDS ORDERED: Furosemide 20 mg/2 ml IV VIAL IV ONE (13:41)
[2021-07-06] MEDS: CMCS: Baricitinib 2 MG TAB (NF) PO SCH (14:10)
[2021-07-06] MEDS: Calcium/Vitamin D TAB 250/125 TAB PO SCH (17:29)
[2021-07-06] MEDS: Ondansetron 4 mg VIAL 2 MG/ML 2 ml VIAL IV PRN (21:29)
[2021-07-06] MEDS: Enoxaparin 40 MG/0.4 ML SYR SUBCUT SCH (21:43)
[2021-07-06] MEDS: Remdesivir 100 mg Vial 100 MG in NS 0.9% 250 ml 230 ML IV SCH (21:44)
[2021-07-07] MEDS: cefTRIAXone 1 gm/50 mL NS BAG 1 GM/50 ML BAG IVPB SCH (06:05)
[2021-07-07] MEDS: Ondansetron 4 mg VIAL 2 MG/ML 2 ml VIAL IV PRN (06:31)
[2021-07-07 06:37] LABS: ABS Lymphocytes 0.9 10^3/ul (1.0-4.8); ABS Monocytes 0.8 10^3/ul (0-0.8); ABS Neutrophils 4.9 10^3/ul (1.5-7.7); Eosinophil % 0.3 %; Hematocrit 40 % (35-47); Hemoglobin 13.2 g/dL (12.0-16.0); Lymphocyte % 13.2 %; Mean Corpuscular HGB Conc 33 g/dL (31-36); Mean Corpuscular Hemoglobin 27 pg (27-31); Mean Corpuscular Volume 83 fL (80-97); Mean Platelet Volume 7.8 fL (7.4-10.4); Platelet Count 378 10^3/uL (150-450); Red Blood Count 4.82 10^6 /uL (3.70-4.87); Red Cell Distribution Width 15 % (10-15); White Blood Count 6.6 10^3/uL (3.5-10.8)
[2021-07-07 06:56] LABS: Albumin 3.5 g/dL (3.2-5.2); Albumin/Globulin Ratio 1.3 (1-3); Calcium 8.9 mg/dL (8.6-10.3); Globulin 2.8 g/dL (2-4); Potassium 4.1 mmol/L (3.5-5.0); Total Bilirubin 0.4 mg/dL (0.2-1.0); Total Protein 6.3 g/dL (6.4-8.9); eGFR CKD-EPI 119.5 (>60)
[2021-07-07] MEDS: DULoxetine DR 60 mg CAP PO SCH (09:57)
[2021-07-07] MEDS: Prochlorperazine 5 mg/ml 2 ml VIAL (10 mg) IV PRN ×2 (09:59→22:12)
[2021-07-07] MEDS: Mirabegron 25 mg ER TAB (NF) PO SCH (10:36)
[2021-07-07] MEDS: DALFAMPRIDINE 10 MG PO SCH ×2 (10:36→22:11)
[2021-07-07] MEDS ORDERED: Metoclopramide 5 MG/ML VIAL (10 mg) IV PRN (12:13)
[2021-07-07] MEDS: CMCS: Baricitinib 2 MG TAB (NF) PO SCH (12:24)
[2021-07-07] MEDS: Calcium/Vitamin D TAB 250/125 TAB PO SCH (12:24)
[2021-07-07] MEDS ORDERED: Furosemide 20 mg/2 ml IV VIAL IV SLOW PU ONE (13:19)
[2021-07-07] MEDS: Metoclopramide 5 MG/ML VIAL (10 mg) IV PRN (14:05)
[2021-07-07] MEDS: Enoxaparin 40 MG/0.4 ML SYR SUBCUT SCH (22:11)
[2021-07-08 07:44] LABS: ABS Lymphocytes 1.2 10^3/ul (1.0-4.8); ABS Monocytes 1.1 10^3/ul (0-0.8); ABS Neutrophils 6.6 10^3/ul (1.5-7.7); Eosinophil % 0.3 %; Hematocrit 42 % (35-47); Hemoglobin 13.8 g/dL (12.0-16.0); Lymphocyte % 13.5 %; Mean Corpuscular HGB Conc 33 g/dL (31-36); Mean Corpuscular Hemoglobin 27 pg (27-31); Mean Corpuscular Volume 82 fL (80-97); Mean Platelet Volume 7.7 fL (7.4-10.4); Platelet Count 436 10^3/uL (150-450); Red Blood Count 5.07 10^6 /uL (3.70-4.87); Red Cell Distribution Width 15 % (10-15); White Blood Count 8.9 10^3/uL (3.5-10.8)
[2021-07-08 08:03] LABS: Albumin 3.5 g/dL (3.2-5.2); Albumin/Globulin Ratio 1.3 (1-3); Calcium 9.1 mg/dL (8.6-10.3); Globulin 2.7 g/dL (2-4); Potassium 4.4 mmol/L (3.5-5.0); Total Bilirubin 0.5 mg/dL (0.2-1.0); Total Protein 6.2 g/dL (6.4-8.9)
[2021-07-08] MEDS ORDERED: Furosemide 20 mg/2 ml IV VIAL IV ONE (09:50)
[2021-07-08] MEDS: DULoxetine DR 60 mg CAP PO SCH (10:46)
[2021-07-08] MEDS: Metoclopramide 5 MG/ML VIAL (10 mg) IV PRN ×2 (10:46→17:15)
[2021-07-08] MEDS: DALFAMPRIDINE 10 MG PO SCH ×2 (11:13→20:20)
[2021-07-08] MEDS: Mirabegron 25 mg ER TAB (NF) PO SCH (11:13)
[2021-07-08] MEDS: CMCS: Baricitinib 2 MG TAB (NF) PO SCH (13:19)
[2021-07-08] MEDS: Calcium/Vitamin D TAB 250/125 TAB PO SCH (13:19)
[2021-07-08] MEDS: Prochlorperazine 5 mg/ml 2 ml VIAL (10 mg) IV PRN (13:23)
[2021-07-08] MEDS: Enoxaparin 40 MG/0.4 ML SYR SUBCUT SCH (21:16)
[2021-07-09 06:59] LABS: ABS Eosinophils 0.1 10^3/ul (0-0.6); ABS Lymphocytes 1.3 10^3/ul (1.0-4.8); ABS Neutrophils 7.3 10^3/ul (1.5-7.7); Eosinophil % 0.6 %; Hematocrit 42 % (35-47); Hemoglobin 13.9 g/dL (12.0-16.0); Lymphocyte % 13.7 %; Mean Corpuscular HGB Conc 33 g/dL (31-36); Mean Corpuscular Hemoglobin 27 pg (27-31); Mean Corpuscular Volume 82 fL (80-97); Mean Platelet Volume 7.8 fL (7.4-10.4); Platelet Count 501 10^3/uL (150-450); Red Blood Count 5.06 10^6 /uL (3.70-4.87); Red Cell Distribution Width 15 % (10-15); White Blood Count 9.7 10^3/uL (3.5-10.8)
[2021-07-09 07:20] LABS: Albumin 3.5 g/dL (3.2-5.2); Albumin/Globulin Ratio 1.3 (1-3); Calcium 9.1 mg/dL (8.6-10.3); Globulin 2.7 g/dL (2-4); Potassium 4.6 mmol/L (3.5-5.0); Total Bilirubin 0.5 mg/dL (0.2-1.0); Total Protein 6.2 g/dL (6.4-8.9); eGFR CKD-EPI 117.5 (>60)
[2021-07-09] MEDS: DULoxetine DR 60 mg CAP PO SCH (08:13)
[2021-07-09] MEDS: Mirabegron 25 mg ER TAB (NF) PO SCH (08:14)
[2021-07-09] MEDS: DALFAMPRIDINE 10 MG PO SCH ×2 (08:14→19:15)
[2021-07-09] MEDS ORDERED: Furosemide 20 mg/2 ml IV VIAL IV ONE (09:18)
[2021-07-09] MEDS: Calcium/Vitamin D TAB 250/125 TAB PO SCH (12:05)
[2021-07-09] MEDS: Prochlorperazine 5 mg/ml 2 ml VIAL (10 mg) IV PRN (12:06)
[2021-07-09] MEDS: CMCS: Baricitinib 2 MG TAB (NF) PO SCH (15:38)
[2021-07-09] MEDS ORDERED: Ondansetron ODT 4 mg TAB 4 MG TAB SL PRN (19:54)
[2021-07-09] MEDS: Enoxaparin 40 MG/0.4 ML SYR SUBCUT SCH (19:55)
[2021-07-10] MEDS: DULoxetine DR 60 mg CAP PO SCH (09:16)
[2021-07-10] MEDS: DALFAMPRIDINE 10 MG PO SCH (09:19)
[2021-07-10] MEDS: Mirabegron 25 mg ER TAB (NF) PO SCH (09:19)
[2021-07-10 12:41] VITALS: BP 140/94
== END 2021-07-10 12:25 | disposition home or self-care (01) | DRG 871 ==
LOC: ED 16:25 → EDHOLD 19:43 → SUATTDRO 19:43 → MED 23:08
PROVIDERS: ADMIT Hospitalist; ATTEND Internal Medicine

== ENCOUNTER 2021-08-16 00:36 | Inpatient (IN) ==
[2021-08-16] MEDS ORDERED: Ondansetron 4 mg VIAL 2 MG/ML 2 ml VIAL IV ONE (01:18)
[2021-08-16] MEDS ORDERED: Azithromycin 500 mg/250 ml NS 500 MG/250 ML BAG IVPB ONE (01:18)
[2021-08-16] MEDS ORDERED: cefTRIAXone 1 gm/50 mL NS BAG 1 GM/50 ML BAG IVPB ONE (01:20)
[2021-08-16 01:35] LABS: PCO2 Arterial 40 mmHg (35-45); PO2 Arterial 142 mmHg (80-100)
[2021-08-16 01:58] LABS: ABS Lymphocytes 0.7 10^3/ul (1.0-4.8); ABS Monocytes 0.4 10^3/ul (0-0.8); ABS Neutrophils 6.4 10^3/ul (1.5-7.7); Hematocrit 36 % (35-47); Hemoglobin 11.9 g/dL (12.0-16.0); Lymphocyte % 8.9 %; Mean Corpuscular HGB Conc 33 g/dL (31-36); Mean Corpuscular Hemoglobin 27 pg (27-31); Mean Corpuscular Volume 82 fL (80-97); Mean Platelet Volume 7.4 fL (7.4-10.4); Platelet Count 322 10^3/uL (150-450); Red Blood Count 4.42 10^6 /uL (3.70-4.87); Red Cell Distribution Width 17 % (10-15); White Blood Count 7.5 10^3/uL (3.5-10.8)
[2021-08-16 02:06] LABS: Activated Partial Thrombo Time 27.6 seconds (26.0-38.0); INR 1.32 (0.86-1.15)
[2021-08-16 02:21] LABS: ALT 18 U/L (7-52); AST 33 U/L (13-39); Albumin 3.4 g/dL (3.2-5.2); Albumin/Globulin Ratio 1.3 (1-3); Alkaline Phosphatase 63 U/L (35-149); Anion Gap 7 mmol/L (2-11); Blood Urea Nitrogen 16 mg/dL (6-24); C Reactive Protein 203.72 mg/L (<8.01); CO2 Carbon Dioxide 28 mmol/L (22-32); Calcium 8.6 mg/dL (8.6-10.3); Chloride 99 mmol/L (101-111); Creatine Kinase 113 U/L (10-223); Globulin 2.6 g/dL (2-4); Glucose 133 mg/dL (70-100); Potassium 4.1 mmol/L (3.5-5.0); Sodium 134 mmol/L (135-145); eGFR CKD-EPI 113.1 (>60)
[2021-08-16] MEDS ORDERED: Iohexol 350 (CONTRAST) 500 ML MDV IV ONE (02:29)
[2021-08-16 02:39] LABS: Troponin I 0.67 ng/mL (<0.03)
[2021-08-16 03:00] LABS: TSH Ultra Thyroid Stim Horm 0.84 mcIU/mL (0.34-5.60)
[2021-08-16 03:17] LABS: Urine Appearance Clear; Urine Color Yellow; Urine Ketones Negative (Negative); Urine Specific Gravity 1.025 (1.002-1.030); Urine Urobilinogen Negative (Negative); Urine pH 6 (5-9)
[2021-08-16 03:18] LABS: Urine Bilirubin Negative (Negative); Urine Blood Negative (Negative); Urine Glucose Negative (Negative); Urine Nitrite Negative (Negative); Urine Protein 2+(100 mg/dL) (Negative)
[2021-08-16] MEDS ORDERED: Polyethylene Glycol 3350 17 GM PACKET PO PRN (03:19)
[2021-08-16] MEDS ORDERED: Albuterol HFA INHALER 8 gm MDI INH PRN (03:19)
[2021-08-16] MEDS ORDERED: Vancomycin 1,000 MG in NS 0.9% 250 ml 250 ML IVPB ONE (04:05)
[2021-08-16] MEDS ORDERED: Furosemide 20 mg/2 ml IV VIAL IV SLOW PU ONE (04:36)
[2021-08-16] MEDS ORDERED: Vancomycin 1500 MG IV - x ONCE IVPB ONE (05:00)
[2021-08-16] MEDS ORDERED: Vancomycin per Pharmacy 1 EA NOTE FOLLOW UP SCH (05:00)
[2021-08-16] MEDS ORDERED: Cefepime 1 GM in Dextrose 1 GM/50 ML BAG IV SCH (05:00)
[2021-08-16] MEDS: methylPREDNISolone SOD 40 mg/ml 1 ml VIAL IV SCH ×3 (05:45→22:39)
[2021-08-16 05:52] LABS: PCO2 Arterial 45 mmHg (35-45); PO2 Arterial 78 mmHg (80-100)
[2021-08-16 06:55] LABS: Troponin I 1.14 ng/mL (<0.03)
[2021-08-16] MEDS ORDERED: Furosemide 40 mg/4 ml IV VIAL ONE (09:29)
[2021-08-16] MEDS: DULoxetine DR 60 mg CAP PO SCH (09:32)
[2021-08-16] MEDS: Heparin 5000 UNITS/ML 1 mL VIAL SUBCUT SCH ×3 (09:33→22:38)
[2021-08-16] MEDS: CMCS: Solifenacin 5 mg TAB (NF) PO SCH (09:33)
[2021-08-16] MEDS: PTO:Dalfampridine ER 10 mg (NF) TAB.ER.12H PO SCH ×2 (09:34→22:34)
[2021-08-16] MEDS: NF: Mirabegron 25 mg ER TAB (NF) PO SCH (09:34)
[2021-08-16] MEDS: Fluticasone NASAL SPRAY 50MCG 16 gm SPRAY BTL BOTH NARES SCH ×2 (09:34→20:01)
[2021-08-16] MEDS ORDERED: Furosemide 40 mg/4 ml IV VIAL IV SLOW PU ONE (10:00)
[2021-08-16] MEDS ORDERED: Morphine 4 MG/ML VIAL (1 ml) IV PRN (10:11)
[2021-08-16] MEDS: cefTRIAXone 1 gm/50 mL NS BAG 1 GM/50 ML BAG IVPB SCH (12:25)
[2021-08-16] MEDS: Hydrocortisone 1% Oint(NF) 30 GM TUBE TOPICAL SCH (13:23)
[2021-08-16] MEDS: Dimethicone Lice Treatment 118 ML TOP.LOTION TOPICAL SCH (13:23)
[2021-08-16] MEDS: Vancomycin 1,500 MG in NS 0.9% 250 ml 250 ML IVPB SCH ×2 (14:49→22:39)
[2021-08-16] MEDS: Albuterol/Ipratropium NEB.SOL (2.5/0.5 MG) 3 ML NEB.SOLN INH SCH (19:03)
[2021-08-16] MEDS: Budesonide NEB 0.25 MG/2 ML NEB.SOLN INH SCH (19:04)
[2021-08-17 04:38] LABS: ABS Lymphocytes 0.7 10^3/ul (1.0-4.8); ABS Monocytes 0.4 10^3/ul (0-0.8); ABS Neutrophils 7.5 10^3/ul (1.5-7.7); Hematocrit 37 % (35-47); Hemoglobin 12.1 g/dL (12.0-16.0); Lymphocyte % 8.2 %; Mean Corpuscular HGB Conc 33 g/dL (31-36); Mean Corpuscular Hemoglobin 27 pg (27-31); Mean Corpuscular Volume 82 fL (80-97); Mean Platelet Volume 8.1 fL (7.4-10.4); Nucleated Red Blood Cells % 0.1; Platelet Count 233 10^3/uL (150-450); Red Blood Count 4.49 10^6 /uL (3.70-4.87); Red Cell Distribution Width 17 % (10-15); White Blood Count 8.7 10^3/uL (3.5-10.8)
[2021-08-17 05:10] LABS: Blood Urea Nitrogen 15 mg/dL (6-24); eGFR CKD-EPI 100.6 (>60)
[2021-08-17] MEDS ORDERED: Vancomycin Trough Check NOTE FOLLOW UP ONE (05:30)
[2021-08-17 05:45] LABS: ABS Lymphocytes 0.4 10^3/ul (1.0-4.8); ABS Monocytes 0.4 10^3/ul (0-0.8); ABS Neutrophils 7.7 10^3/ul (1.5-7.7); Hematocrit 36 % (35-47); Mean Corpuscular HGB Conc 33 g/dL (31-36); Mean Corpuscular Hemoglobin 27 pg (27-31); Mean Corpuscular Volume 82 fL (80-97); Mean Platelet Volume 7.6 fL (7.4-10.4); Nucleated Red Blood Cells % 0.1; Platelet Count 242 10^3/uL (150-450); Red Blood Count 4.44 10^6 /uL (3.70-4.87); Red Cell Distribution Width 17 % (10-15); White Blood Count 8.6 10^3/uL (3.5-10.8)
[2021-08-17 06:08] LABS: Potassium 4.1 mmol/L (3.5-5.0); eGFR CKD-EPI 119.5 (>60)
[2021-08-17] MEDS: Vancomycin 1,500 MG in NS 0.9% 250 ml 250 ML IVPB SCH (06:23)
[2021-08-17] MEDS: methylPREDNISolone SOD 40 mg/ml 1 ml VIAL IV SCH ×3 (06:24→22:02)
[2021-08-17] MEDS: Heparin 5000 UNITS/ML 1 mL VIAL SUBCUT SCH ×3 (06:24→22:02)
[2021-08-17] MEDS: Albuterol/Ipratropium NEB.SOL (2.5/0.5 MG) 3 ML NEB.SOLN INH SCH ×4 (07:10→19:11)
[2021-08-17] MEDS: Budesonide NEB 0.25 MG/2 ML NEB.SOLN INH SCH ×2 (07:10→19:12)
[2021-08-17] MEDS: CMCS: Solifenacin 5 mg TAB (NF) PO SCH (08:12)
[2021-08-17] MEDS: DULoxetine DR 60 mg CAP PO SCH (08:13)
[2021-08-17] MEDS: PTO:Dalfampridine ER 10 mg (NF) TAB.ER.12H PO SCH ×2 (09:32→20:08)
[2021-08-17] MEDS: Fluticasone NASAL SPRAY 50MCG 16 gm SPRAY BTL BOTH NARES SCH ×2 (09:33→20:36)
[2021-08-17] MEDS: Hydrocortisone 1% Oint(NF) 30 GM TUBE TOPICAL SCH (09:33)
[2021-08-17] MEDS: NF: Mirabegron 25 mg ER TAB (NF) PO SCH (09:33)
[2021-08-17] MEDS: Dimethicone Lice Treatment 118 ML TOP.LOTION TOPICAL SCH (09:33)
[2021-08-17] MEDS: cefTRIAXone 1 gm/50 mL NS BAG 1 GM/50 ML BAG IVPB SCH (11:00)
[2021-08-17] MEDS: Acetaminophen IV 1 GM/100ML 100 ML IV PRN ×2 (11:00→23:51)
[2021-08-17] MEDS ORDERED: Piperacillin/Tazobac ADVAN 3.375 GM in NS 0.9% 100 ml BAG 100 ML IV ONE (12:00)
[2021-08-17] MEDS ORDERED: Zosyn per Pharmacy NOTE FOLLOW UP SCH (12:00)
[2021-08-17] MEDS ORDERED: Remdesivir 200 mg LOADING DOSE X1 IV ONE (16:30)
[2021-08-17] MEDS: ZOSYN 3.375 GM Q8H per EXTENDED INFUSION IV SCH (18:22)
[2021-08-18] MEDS: ZOSYN 3.375 GM Q8H per EXTENDED INFUSION IV SCH ×3 (01:36→16:40)
[2021-08-18 04:57] LABS: Hematocrit 37 % (35-47); Hemoglobin 11.8 g/dL (12.0-16.0); Mean Corpuscular HGB Conc 32 g/dL (31-36); Mean Corpuscular Hemoglobin 27 pg (27-31); Mean Corpuscular Volume 83 fL (80-97); Mean Platelet Volume 7.7 fL (7.4-10.4); Platelet Count 261 10^3/uL (150-450); Red Blood Count 4.42 10^6 /uL (3.70-4.87); Red Cell Distribution Width 17 % (10-15); White Blood Count 13.7 10^3/uL (3.5-10.8)
[2021-08-18 05:12] LABS: Anion Gap 9 mmol/L (2-11); Blood Urea Nitrogen 16 mg/dL (6-24); CO2 Carbon Dioxide 32 mmol/L (22-32); Calcium 9.1 mg/dL (8.6-10.3); Chloride 97 mmol/L (101-111); Glucose 128 mg/dL (70-100); Potassium 4.3 mmol/L (3.5-5.0); Sodium 138 mmol/L (135-145); eGFR CKD-EPI 119.5 (>60)
[2021-08-18 05:17] LABS: Troponin I 0.58 ng/mL (<0.03)
[2021-08-18 05:29] LABS: ABS Basophils 0.1 10^3/ul (0-0.2); ABS Lymphocytes 0.5 10^3/ul (1.0-4.8); ABS Monocytes 0.5 10^3/ul (0-0.8); ABS Neutrophils 12.7 10^3/ul (1.5-7.7); Lymphocyte % 3.5 %
[2021-08-18] MEDS: Heparin 5000 UNITS/ML 1 mL VIAL SUBCUT SCH ×3 (05:32→22:48)
[2021-08-18] MEDS: methylPREDNISolone SOD 40 mg/ml 1 ml VIAL IV SCH ×3 (05:32→22:48)
[2021-08-18] MEDS ORDERED: Furosemide 40 mg/4 ml IV VIAL IV SLOW PU ONE (05:40)
[2021-08-18] MEDS: Albuterol/Ipratropium NEB.SOL (2.5/0.5 MG) 3 ML NEB.SOLN INH SCH (07:42)
[2021-08-18] MEDS: Budesonide NEB 0.25 MG/2 ML NEB.SOLN INH SCH (07:42)
[2021-08-18 08:50] LABS: PCO2 Arterial 47 mmHg (35-45); PO2 Arterial 77 mmHg (80-100)
[2021-08-18] MEDS: Acetaminophen IV 1 GM/100ML 100 ML IV PRN ×2 (09:02→16:40)
[2021-08-18] MEDS: Dimethicone Lice Treatment 118 ML TOP.LOTION TOPICAL SCH (09:04)
[2021-08-18] MEDS: Fluticasone NASAL SPRAY 50MCG 16 gm SPRAY BTL BOTH NARES SCH ×2 (09:04→20:34)
[2021-08-18] MEDS: Hydrocortisone 1% Oint(NF) 30 GM TUBE TOPICAL SCH ×2 (09:04→21:00)
[2021-08-18] MEDS: PTO:Dalfampridine ER 10 mg (NF) TAB.ER.12H PO SCH ×2 (09:04→21:03)
[2021-08-18] MEDS: DULoxetine DR 60 mg CAP PO SCH (09:04)
[2021-08-18] MEDS: CMCS: Solifenacin 5 mg TAB (NF) PO SCH (09:05)
[2021-08-18] MEDS: NF: Mirabegron 25 mg ER TAB (NF) PO SCH (09:05)
[2021-08-18] MEDS ORDERED: Perflutren Lipid Microsphere 3 ML VIAL ONE (09:31)
[2021-08-18] MEDS ORDERED: Albuterol/Ipratropium NEB.SOL (2.5/0.5 MG) 3 ML NEB.SOLN INH PRN (10:53)
[2021-08-18] MEDS ORDERED: Iohexol 350 (CONTRAST) 500 ML MDV IV ONE (12:34)
[2021-08-18] MEDS: Remdesivir 100 mg Vial 100 MG in NS 0.9% 250 ml 230 ML IV SCH (21:01)
[2021-08-19] MEDS: ZOSYN 3.375 GM Q8H per EXTENDED INFUSION IV SCH ×3 (01:10→17:29)
[2021-08-19 04:53] LABS: ABS Lymphocytes 0.4 10^3/ul (1.0-4.8); ABS Monocytes 0.6 10^3/ul (0-0.8); ABS Neutrophils 11.7 10^3/ul (1.5-7.7); Hematocrit 37 % (35-47); Hemoglobin 12.1 g/dL (12.0-16.0); Lymphocyte % 3.3 %; Mean Corpuscular HGB Conc 33 g/dL (31-36); Mean Corpuscular Hemoglobin 27 pg (27-31); Mean Corpuscular Volume 82 fL (80-97); Mean Platelet Volume 8.1 fL (7.4-10.4); Platelet Count 256 10^3/uL (150-450); Red Blood Count 4.52 10^6 /uL (3.70-4.87); Red Cell Distribution Width 17 % (10-15); White Blood Count 12.8 10^3/uL (3.5-10.8)
[2021-08-19 05:05] LABS: Potassium 3.9 mmol/L (3.5-5.0); eGFR CKD-EPI 121.7 (>60)
[2021-08-19] MEDS: Heparin 5000 UNITS/ML 1 mL VIAL SUBCUT SCH ×3 (05:28→21:50)
[2021-08-19] MEDS: methylPREDNISolone SOD 40 mg/ml 1 ml VIAL IV SCH ×3 (05:28→21:50)
[2021-08-19] MEDS ORDERED: Furosemide 20 mg/2 ml IV VIAL IV ONE (09:20)
[2021-08-19] MEDS: CMCS: Solifenacin 5 mg TAB (NF) PO SCH (09:39)
[2021-08-19] MEDS: DULoxetine DR 60 mg CAP PO SCH (09:40)
[2021-08-19] MEDS: NF: Mirabegron 25 mg ER TAB (NF) PO SCH (09:51)
[2021-08-19] MEDS: PTO:Dalfampridine ER 10 mg (NF) TAB.ER.12H PO SCH ×2 (09:52→19:50)
[2021-08-19] MEDS: Fluticasone NASAL SPRAY 50MCG 16 gm SPRAY BTL BOTH NARES SCH ×2 (10:06→19:53)
[2021-08-19] MEDS: Ondansetron 4 mg VIAL 2 MG/ML 2 ml VIAL IV PRN (11:04)
[2021-08-19] MEDS: Hydrocortisone 1% Oint(NF) 30 GM TUBE TOPICAL SCH (11:33)
[2021-08-19] MEDS: Dimethicone Lice Treatment 118 ML TOP.LOTION TOPICAL SCH (11:33)
[2021-08-19] MEDS: Remdesivir 100 mg Vial 100 MG in NS 0.9% 250 ml 230 ML IV SCH (21:50)
[2021-08-20] MEDS ORDERED: Morphine 2 MG/ML SYRINGE IV ONE (01:03)
[2021-08-20] MEDS: ZOSYN 3.375 GM Q8H per EXTENDED INFUSION IV SCH ×3 (01:48→17:06)
[2021-08-20] MEDS: methylPREDNISolone SOD 40 mg/ml 1 ml VIAL IV SCH ×3 (05:31→22:38)
[2021-08-20] MEDS: Heparin 5000 UNITS/ML 1 mL VIAL SUBCUT SCH ×3 (05:31→22:38)
[2021-08-20 06:14] LABS: ABS Lymphocytes 0.5 10^3/ul (1.0-4.8); ABS Monocytes 0.7 10^3/ul (0-0.8); ABS Neutrophils 11.8 10^3/ul (1.5-7.7); Hematocrit 39 % (35-47); Hemoglobin 12.5 g/dL (12.0-16.0); Lymphocyte % 4.1 %; Mean Corpuscular HGB Conc 32 g/dL (31-36); Mean Corpuscular Hemoglobin 26 pg (27-31); Mean Corpuscular Volume 81 fL (80-97); Nucleated Red Blood Cells % 0.1; Platelet Count 291 10^3/uL (150-450); Red Blood Count 4.73 10^6 /uL (3.70-4.87); Red Cell Distribution Width 17 % (10-15); White Blood Count 13.1 10^3/uL (3.5-10.8)
[2021-08-20 06:30] LABS: Calcium 9.3 mg/dL (8.6-10.3); eGFR CKD-EPI 121.7 (>60)
[2021-08-20] MEDS: DULoxetine DR 60 mg CAP PO SCH (09:20)
[2021-08-20] MEDS: PTO:Dalfampridine ER 10 mg (NF) TAB.ER.12H PO SCH ×2 (09:23→20:05)
[2021-08-20] MEDS: Fluticasone NASAL SPRAY 50MCG 16 gm SPRAY BTL BOTH NARES SCH ×2 (09:24→20:05)
[2021-08-20] MEDS: CMCS: Solifenacin 5 mg TAB (NF) PO SCH (09:25)
[2021-08-20] MEDS: NF: Mirabegron 25 mg ER TAB (NF) PO SCH (09:27)
[2021-08-20] MEDS ORDERED: Furosemide 20 mg/2 ml IV VIAL IV ONE (10:08)
[2021-08-20] MEDS: Hydrocortisone 1% Oint(NF) 30 GM TUBE TOPICAL SCH (10:51)
[2021-08-20] MEDS: Dimethicone Lice Treatment 118 ML TOP.LOTION TOPICAL SCH (10:51)
[2021-08-20] MEDS: Remdesivir 100 mg Vial 100 MG in NS 0.9% 250 ml 230 ML IV SCH ×2 (20:05→22:38)
[2021-08-21] MEDS: ZOSYN 3.375 GM Q8H per EXTENDED INFUSION IV SCH ×3 (01:09→18:00)
[2021-08-21] MEDS: Heparin 5000 UNITS/ML 1 mL VIAL SUBCUT SCH ×3 (05:21→22:06)
[2021-08-21] MEDS: methylPREDNISolone SOD 40 mg/ml 1 ml VIAL IV SCH ×3 (05:21→22:06)
[2021-08-21 06:13] LABS: ABS Lymphocytes 0.7 10^3/ul (1.0-4.8); ABS Monocytes 0.8 10^3/ul (0-0.8); ABS Neutrophils 12.5 10^3/ul (1.5-7.7); Hematocrit 40 % (35-47); Lymphocyte % 4.8 %; Mean Corpuscular HGB Conc 33 g/dL (31-36); Mean Corpuscular Hemoglobin 27 pg (27-31); Mean Corpuscular Volume 82 fL (80-97); Mean Platelet Volume 8.1 fL (7.4-10.4); Platelet Count 329 10^3/uL (150-450); Red Blood Count 4.88 10^6 /uL (3.70-4.87); Red Cell Distribution Width 17 % (10-15); White Blood Count 14.1 10^3/uL (3.5-10.8)
[2021-08-21 06:30] LABS: Calcium 9.4 mg/dL (8.6-10.3); Potassium 4.3 mmol/L (3.5-5.0); eGFR CKD-EPI 121.7 (>60)
[2021-08-21] MEDS: NF: Mirabegron 25 mg ER TAB (NF) PO SCH (08:34)
[2021-08-21] MEDS: CMCS: Solifenacin 5 mg TAB (NF) PO SCH (08:39)
[2021-08-21] MEDS: PTO:Dalfampridine ER 10 mg (NF) TAB.ER.12H PO SCH ×2 (08:40→22:41)
[2021-08-21] MEDS: DULoxetine DR 60 mg CAP PO SCH (08:40)
[2021-08-21] MEDS: Hydrocortisone 1% Oint(NF) 30 GM TUBE TOPICAL SCH (08:43)
[2021-08-21] MEDS: Dimethicone Lice Treatment 118 ML TOP.LOTION TOPICAL SCH (08:43)
[2021-08-21] MEDS: Fluticasone NASAL SPRAY 50MCG 16 gm SPRAY BTL BOTH NARES SCH ×2 (08:43→22:34)
[2021-08-21] MEDS: Remdesivir 100 mg Vial 100 MG in NS 0.9% 250 ml 230 ML IV SCH (22:06)
[2021-08-22] MEDS: ZOSYN 3.375 GM Q8H per EXTENDED INFUSION IV SCH ×3 (01:30→17:04)
[2021-08-22] MEDS: methylPREDNISolone SOD 40 mg/ml 1 ml VIAL IV SCH ×3 (06:08→21:21)
[2021-08-22] MEDS: Heparin 5000 UNITS/ML 1 mL VIAL SUBCUT SCH ×3 (06:08→21:21)
[2021-08-22] MEDS: DULoxetine DR 60 mg CAP PO SCH (10:10)
[2021-08-22] MEDS: CMCS: Solifenacin 5 mg TAB (NF) PO SCH (10:11)
[2021-08-22] MEDS: Fluticasone NASAL SPRAY 50MCG 16 gm SPRAY BTL BOTH NARES SCH ×2 (10:14→21:36)
[2021-08-22] MEDS: Dimethicone Lice Treatment 118 ML TOP.LOTION TOPICAL SCH (10:39)
[2021-08-22] MEDS: PTO:Dalfampridine ER 10 mg (NF) TAB.ER.12H PO SCH ×2 (10:39→21:36)
[2021-08-22] MEDS: Hydrocortisone 1% Oint(NF) 30 GM TUBE TOPICAL SCH (10:39)
[2021-08-22] MEDS: NF: Mirabegron 25 mg ER TAB (NF) PO SCH (10:39)
[2021-08-22 11:10] LABS: ABS Basophils 0.1 10^3/ul (0-0.2); ABS Lymphocytes 0.6 10^3/ul (1.0-4.8); ABS Monocytes 0.6 10^3/ul (0-0.8); ABS Neutrophils 11.2 10^3/ul (1.5-7.7); Hematocrit 41 % (35-47); Hemoglobin 13.1 g/dL (12.0-16.0); Lymphocyte % 4.4 %; Mean Corpuscular HGB Conc 32 g/dL (31-36); Mean Corpuscular Hemoglobin 27 pg (27-31); Mean Corpuscular Volume 82 fL (80-97); Mean Platelet Volume 8.1 fL (7.4-10.4); Nucleated Red Blood Cells % 0.1; Platelet Count 352 10^3/uL (150-450); Red Blood Count 4.93 10^6 /uL (3.70-4.87); Red Cell Distribution Width 17 % (10-15); White Blood Count 12.4 10^3/uL (3.5-10.8)
[2021-08-22 11:25] LABS: Calcium 9.2 mg/dL (8.6-10.3); Potassium 4.3 mmol/L (3.5-5.0); eGFR CKD-EPI 115.7 (>60)
[2021-08-23] MEDS: ZOSYN 3.375 GM Q8H per EXTENDED INFUSION IV SCH ×3 (00:48→16:40)
[2021-08-23] MEDS: Heparin 5000 UNITS/ML 1 mL VIAL SUBCUT SCH ×2 (05:12→15:28)
[2021-08-23] MEDS: methylPREDNISolone SOD 40 mg/ml 1 ml VIAL IV SCH ×3 (05:12→21:17)
[2021-08-23 05:49] LABS: Hematocrit 41 % (35-47); Hemoglobin 13.2 g/dL (12.0-16.0); Mean Corpuscular HGB Conc 32 g/dL (31-36); Mean Corpuscular Hemoglobin 27 pg (27-31); Mean Corpuscular Volume 82 fL (80-97); Platelet Count 369 10^3/uL (150-450); Red Blood Count 4.98 10^6 /uL (3.70-4.87); Red Cell Distribution Width 17 % (10-15); White Blood Count 14.6 10^3/uL (3.5-10.8)
[2021-08-23 06:05] LABS: Albumin 3.2 g/dL (3.2-5.2); Albumin/Globulin Ratio 1.5 (1-3); Calcium 8.8 mg/dL (8.6-10.3); Globulin 2.2 g/dL (2-4); Magnesium 2.2 mg/dL (1.9-2.7); Potassium 4.6 mmol/L (3.5-5.0); Total Bilirubin 0.7 mg/dL (0.2-1.0); Total Protein 5.4 g/dL (6.4-8.9); eGFR CKD-EPI 121.1 (>60)
[2021-08-23] MEDS: PTO:Dalfampridine ER 10 mg (NF) TAB.ER.12H PO SCH ×2 (09:38→21:16)
[2021-08-23] MEDS: DULoxetine DR 60 mg CAP PO SCH (09:38)
[2021-08-23] MEDS: CMCS: Solifenacin 5 mg TAB (NF) PO SCH (09:39)
[2021-08-23] MEDS: Fluticasone NASAL SPRAY 50MCG 16 gm SPRAY BTL BOTH NARES SCH ×2 (09:39→21:16)
[2021-08-23] MEDS: NF: Mirabegron 25 mg ER TAB (NF) PO SCH (09:41)
[2021-08-23] MEDS ORDERED: Albuterol/Ipratropium NEB.SOL (2.5/0.5 MG) 3 ML NEB.SOLN INH PRN (10:22)
[2021-08-23] MEDS ORDERED: Furosemide 40 mg/4 ml IV VIAL IV ONE (10:22)
[2021-08-23] MEDS: Nystatin TOP POWDER 15 GM BTL TOPICAL SCH ×2 (13:57→21:17)
[2021-08-23 20:56] LABS: ABS Basophils 0.1 10^3/ul (0-0.2); ABS Lymphocytes 0.7 10^3/ul (1.0-4.8); Hematocrit 39 % (35-47); Hemoglobin 12.6 g/dL (12.0-16.0); Lymphocyte % 4.3 %; Mean Corpuscular HGB Conc 32 g/dL (31-36); Mean Corpuscular Hemoglobin 27 pg (27-31); Mean Corpuscular Volume 83 fL (80-97); Mean Platelet Volume 8.3 fL (7.4-10.4); Platelet Count 411 10^3/uL (150-450); Red Blood Count 4.76 10^6 /uL (3.70-4.87); Red Cell Distribution Width 17 % (10-15); White Blood Count 15.8 10^3/uL (3.5-10.8)
[2021-08-23] MEDS: Heparin DRIP 25,000 UNITS BAG 25,000 UNITS/500 ML BAG IV SCH (21:00)
[2021-08-23] MEDS: Heparin 5000 UNITS/ML 1 mL VIAL IV SCH (21:01)
[2021-08-23 21:12] LABS: Blood Urea Nitrogen 20 mg/dL (6-24); eGFR CKD-EPI 100.6 (>60)
[2021-08-23 21:35] LABS: Troponin I 0.11 ng/mL (<0.03)
[2021-08-24] MEDS: ZOSYN 3.375 GM Q8H per EXTENDED INFUSION IV SCH ×2 (00:09→08:43)
[2021-08-24 04:30] LABS: Hematocrit 37 % (35-47); Hemoglobin 12.3 g/dL (12.0-16.0); Mean Corpuscular HGB Conc 33 g/dL (31-36); Mean Corpuscular Hemoglobin 27 pg (27-31); Mean Corpuscular Volume 82 fL (80-97); Mean Platelet Volume 7.9 fL (7.4-10.4); Platelet Count 408 10^3/uL (150-450); Red Blood Count 4.51 10^6 /uL (3.70-4.87); Red Cell Distribution Width 18 % (10-15); White Blood Count 16.2 10^3/uL (3.5-10.8)
[2021-08-24 04:48] LABS: ALT 17 U/L (7-52); Albumin 3.1 g/dL (3.2-5.2); Albumin/Globulin Ratio 1.5 (1-3); Alkaline Phosphatase 61 U/L (35-149); Blood Urea Nitrogen 19 mg/dL (6-24); CO2 Carbon Dioxide 33 mmol/L (22-32); Calcium 8.5 mg/dL (8.6-10.3); Chloride 97 mmol/L (101-111); Globulin 2.1 g/dL (2-4); Glucose 220 mg/dL (70-100); Sodium 139 mmol/L (135-145); Total Protein 5.2 g/dL (6.4-8.9)
[2021-08-24 04:53] LABS: ABS Basophils 0.1 10^3/ul (0-0.2); ABS Lymphocytes 0.7 10^3/ul (1.0-4.8); ABS Neutrophils 14.5 10^3/ul (1.5-7.7); Lymphocyte % 4.3 %; Nucleated Red Blood Cells % 0.2
[2021-08-24 04:55] LABS: Anion Gap 9 mmol/L (2-11)
[2021-08-24 05:41] LABS: Potassium Redraw 4.3 mmol/L (3.5-5.0)
[2021-08-24] MEDS: PTO:Dalfampridine ER 10 mg (NF) TAB.ER.12H PO SCH ×2 (08:38→21:13)
[2021-08-24] MEDS: NF: Mirabegron 25 mg ER TAB (NF) PO SCH (08:39)
[2021-08-24] MEDS: CMCS: Solifenacin 5 mg TAB (NF) PO SCH (08:40)
[2021-08-24] MEDS: DULoxetine DR 60 mg CAP PO SCH (08:42)
[2021-08-24] MEDS: Nystatin TOP POWDER 15 GM BTL TOPICAL SCH (08:43)
[2021-08-24] MEDS: Fluticasone NASAL SPRAY 50MCG 16 gm SPRAY BTL BOTH NARES SCH ×2 (08:43→21:37)
[2021-08-24] MEDS ORDERED: Furosemide 40 mg/4 ml IV VIAL IV SLOW PU ONE (08:54)
[2021-08-24] MEDS ORDERED: Buffered Lidocaine 1% SYRIN 1 ml INTRADERM ONE (08:55)
[2021-08-24] MEDS ORDERED: Furosemide 40 mg/4 ml IV VIAL ONE (09:15)
[2021-08-24] MEDS: Ondansetron 4 mg VIAL 2 MG/ML 2 ml VIAL IV PRN (09:17)
[2021-08-24] MEDS ORDERED: Perflutren Lipid Microsphere 3 ML VIAL ONE (10:02)
[2021-08-24 10:04] LABS: Phosphorus 4.1 mg/dL (2.5-5.0)
[2021-08-24] MEDS: Heparin DRIP 25,000 UNITS BAG 25,000 UNITS/500 ML BAG IV SCH (13:35)
[2021-08-25 03:16] LABS: Hematocrit 37 % (35-47); Mean Corpuscular HGB Conc 32 g/dL (31-36); Mean Corpuscular Hemoglobin 27 pg (27-31); Mean Corpuscular Volume 82 fL (80-97); Platelet Count 394 10^3/uL (150-450); Red Blood Count 4.52 10^6 /uL (3.70-4.87); Red Cell Distribution Width 18 % (10-15); White Blood Count 18.9 10^3/uL (3.5-10.8)
[2021-08-25] MEDS: Acetaminophen IV 1 GM/100ML 100 ML IV PRN ×2 (03:21→19:51)
[2021-08-25 03:35] LABS: Calcium 8.9 mg/dL (8.6-10.3); Potassium 3.8 mmol/L (3.5-5.0)
[2021-08-25 03:41] LABS: Phosphorus 3.5 mg/dL (2.5-5.0); eGFR CKD-EPI 115.2 (>60)
[2021-08-25] MEDS ORDERED: Acetaminophen IV 1 GM/100ML 100 ML IV PRN ×2 (07:05→09:30)
[2021-08-25] MEDS: DULoxetine DR 60 mg CAP PO SCH (09:16)
[2021-08-25] MEDS: CMCS: Solifenacin 5 mg TAB (NF) PO SCH (09:17)
[2021-08-25] MEDS: PTO:Dalfampridine ER 10 mg (NF) TAB.ER.12H PO SCH ×2 (09:17→19:51)
[2021-08-25] MEDS: Fluticasone NASAL SPRAY 50MCG 16 gm SPRAY BTL BOTH NARES SCH ×2 (09:18→19:53)
[2021-08-25] MEDS: NF: Mirabegron 25 mg ER TAB (NF) PO SCH (09:19)
[2021-08-25] MEDS ORDERED: Furosemide 20 mg/2 ml IV VIAL IV SLOW PU ONE (10:35)
[2021-08-25] MEDS ORDERED: Warfarin per PHARMACY **NOTE FOLLOW UP SCH (11:00)
[2021-08-25 14:23] LABS: Urine Appearance Clear; Urine Bilirubin Negative (Negative); Urine Blood 1+ (Negative); Urine Color Yellow; Urine Glucose Negative (Negative); Urine Ketones Negative (Negative); Urine Nitrite Negative (Negative); Urine Protein Negative (Negative); Urine Specific Gravity 1.013 (1.002-1.030); Urine Urobilinogen Negative (Negative)
[2021-08-25 14:31] LABS: Urine Bacteria Absent (Absent); Urine Red Blood Cell 1+(3-5/hpf) (Absent); Urine Squamous Epithelial Cell Present (Absent); Urine White Blood Cell 1+(6-10/hpf) (Absent)
[2021-08-25] MEDS ORDERED: Cefepime 2 GM in NS 0.9% 50 ML 50 ML IVPB SCH (16:00)
[2021-08-25] MEDS: CEFEPIME 2 GM in Dextrose 50 mL IV SCH (16:17)
[2021-08-25] MEDS: Warfarin DAILY REMINDER **NOTE FOLLOW UP SCH (17:02)
[2021-08-25] MEDS: Propranolol 80 mg TAB PO SCH (19:51)
[2021-08-25] MEDS: Saline FLUSH-CENTRAL 10 ML SYRINGE CENT\\PICC SCH (23:40)
[2021-08-26 04:35] LABS: Hematocrit 37 % (35-47); Mean Corpuscular HGB Conc 32 g/dL (31-36); Mean Corpuscular Hemoglobin 27 pg (27-31); Mean Corpuscular Volume 82 fL (80-97); Platelet Count 334 10^3/uL (150-450); Red Blood Count 4.51 10^6 /uL (3.70-4.87); Red Cell Distribution Width 18 % (10-15); White Blood Count 17.3 10^3/uL (3.5-10.8)
[2021-08-26] MEDS: CEFEPIME 2 GM in Dextrose 50 mL IV SCH ×2 (04:35→15:29)
[2021-08-26 04:49] LABS: Activated Partial Thrombo Time 43.8 seconds (26.0-38.0); INR 1.49 (0.86-1.15)
[2021-08-26 04:51] LABS: Calcium 8.8 mg/dL (8.6-10.3)
[2021-08-26 05:32] LABS: Anisocytosis 1+; Microcytosis 1+
[2021-08-26 05:33] LABS: ABS Eosinophils 0.2 10^3/ul (0-0.6); ABS Lymphocytes 0.8 10^3/ul (1.0-4.8); ABS Monocytes 0.8 10^3/ul (0-0.8); ABS Neutrophils 15.4 10^3/ul (1.5-7.7); Eosinophil % 1.1 %; Lymphocyte % 4.9 %
[2021-08-26] MEDS: Heparin 5000 UNITS/ML 1 mL VIAL IV SCH (05:33)
[2021-08-26] MEDS ORDERED: Voriconazole 200 MG VIAL IV SCH (06:00)
[2021-08-26] MEDS: Acetaminophen IV 1 GM/100ML 100 ML IV PRN (07:45)
[2021-08-26] MEDS: Heparin DRIP 25,000 UNITS BAG 25,000 UNITS/500 ML BAG IV SCH (08:58)
[2021-08-26] MEDS: VORICONAZOLE 50 MG PO SCH ×2 (09:29→21:00)
[2021-08-26] MEDS: Fluticasone NASAL SPRAY 50MCG 16 gm SPRAY BTL BOTH NARES SCH ×2 (09:30→20:57)
[2021-08-26] MEDS: CMCS: Solifenacin 5 mg TAB (NF) PO SCH (09:30)
[2021-08-26] MEDS: DULoxetine DR 60 mg CAP PO SCH (09:33)
[2021-08-26] MEDS: PTO:Dalfampridine ER 10 mg (NF) TAB.ER.12H PO SCH ×2 (09:35→20:57)
[2021-08-26] MEDS: Propranolol 80 mg TAB PO SCH ×2 (09:35→20:58)
[2021-08-26] MEDS: Saline FLUSH-CENTRAL 10 ML SYRINGE CENT\\PICC SCH ×2 (10:00→21:23)
[2021-08-26] MEDS: NF: Mirabegron 25 mg ER TAB (NF) PO SCH (12:43)
[2021-08-26] MEDS: Warfarin DAILY REMINDER **NOTE FOLLOW UP SCH (17:54)
[2021-08-27] MEDS: Heparin DRIP 25,000 UNITS BAG 25,000 UNITS/500 ML BAG IV SCH (03:25)
[2021-08-27] MEDS: CEFEPIME 2 GM in Dextrose 50 mL IV SCH ×2 (03:25→16:14)
[2021-08-27 04:32] LABS: Hematocrit 34 % (35-47); Hemoglobin 11.1 g/dL (12.0-16.0); Mean Corpuscular HGB Conc 32 g/dL (31-36); Mean Corpuscular Hemoglobin 27 pg (27-31); Mean Corpuscular Volume 82 fL (80-97); Platelet Count 274 10^3/uL (150-450); Red Blood Count 4.18 10^6 /uL (3.70-4.87); Red Cell Distribution Width 18 % (10-15); White Blood Count 14.4 10^3/uL (3.5-10.8)
[2021-08-27 04:46] LABS: INR 2.08 (0.86-1.15)
[2021-08-27 04:47] LABS: Activated Partial Thrombo Time 56.8 seconds (26.0-38.0)
[2021-08-27 04:50] LABS: Calcium 8.6 mg/dL (8.6-10.3); Magnesium 1.9 mg/dL (1.9-2.7); Phosphorus 3.6 mg/dL (2.5-5.0); Potassium 4.2 mmol/L (3.5-5.0); eGFR CKD-EPI 116.1 (>60)
[2021-08-27] MEDS ORDERED: Potassium Chlor 20 meq TAB.ER PO ONE (07:26)
[2021-08-27] MEDS ORDERED: Magnesium Sulfate IV 1GM/100ML 1 GM/100 ML BAG IV ONE (07:26)
[2021-08-27] MEDS: DULoxetine DR 60 mg CAP PO SCH (08:36)
[2021-08-27] MEDS: PTO:Dalfampridine ER 10 mg (NF) TAB.ER.12H PO SCH ×2 (08:38→19:49)
[2021-08-27] MEDS: Fluticasone NASAL SPRAY 50MCG 16 gm SPRAY BTL BOTH NARES SCH ×2 (08:39→19:49)
[2021-08-27] MEDS: Propranolol 80 mg TAB PO SCH ×2 (08:40→19:48)
[2021-08-27] MEDS: VORICONAZOLE 50 MG PO SCH ×2 (08:44→19:48)
[2021-08-27] MEDS ORDERED: Vancomycin 1,750 MG in NS 0.9% 500 ml BAG 500 ML IVPB ONE (09:00)
[2021-08-27] MEDS ORDERED: Furosemide 40 mg/4 ml IV VIAL IV SLOW PU ONE (09:00)
[2021-08-27] MEDS ORDERED: Vancomycin per Pharmacy 1 EA NOTE FOLLOW UP PRN (10:15)
[2021-08-27] MEDS: Saline FLUSH-CENTRAL 10 ML SYRINGE CENT\\PICC SCH ×2 (11:17→22:47)
[2021-08-27] MEDS: Sulfamethox/Trimethoprim DS TAB 800/160 mg PO SCH ×2 (11:20→19:48)
[2021-08-27] MEDS: Warfarin DAILY REMINDER **NOTE FOLLOW UP SCH (16:20)
[2021-08-27] MEDS: Vancomycin 1,500 MG in NS 0.9% 250 ml 250 ML IVPB SCH (22:38)
[2021-08-28] MEDS: CEFEPIME 2 GM in Dextrose 50 mL IV SCH ×2 (04:55→16:57)
[2021-08-28 08:48] LABS: ABS Eosinophils 0.2 10^3/ul (0-0.6); ABS Lymphocytes 0.6 10^3/ul (1.0-4.8); ABS Monocytes 0.5 10^3/ul (0-0.8); ABS Neutrophils 12.1 10^3/ul (1.5-7.7); Activated Partial Thrombo Time 32.3 seconds (26.0-38.0); Eosinophil % 1.6 %; Hematocrit 37 % (35-47); INR 2.6 (0.86-1.15); Lymphocyte % 4.4 %; Mean Corpuscular HGB Conc 33 g/dL (31-36); Mean Corpuscular Hemoglobin 27 pg (27-31); Mean Corpuscular Volume 82 fL (80-97); Nucleated Red Blood Cells % 0.1; Red Blood Count 4.49 10^6 /uL (3.70-4.87); Red Cell Distribution Width 19 % (10-15); White Blood Count 13.5 10^3/uL (3.5-10.8)
[2021-08-28] MEDS: Sulfamethox/Trimethoprim DS TAB 800/160 mg PO SCH ×2 (08:56→22:35)
[2021-08-28] MEDS: DULoxetine DR 60 mg CAP PO SCH (08:56)
[2021-08-28] MEDS: PTO:Dalfampridine ER 10 mg (NF) TAB.ER.12H PO SCH ×2 (08:58→22:40)
[2021-08-28] MEDS: Propranolol 80 mg TAB PO SCH ×2 (08:59→22:39)
[2021-08-28] MEDS: Fluticasone NASAL SPRAY 50MCG 16 gm SPRAY BTL BOTH NARES SCH ×2 (08:59→22:36)
[2021-08-28 09:04] LABS: Calcium 8.8 mg/dL (8.6-10.3); Potassium 4.5 mmol/L (3.5-5.0)
[2021-08-28 09:10] LABS: eGFR CKD-EPI 114.8 (>60)
[2021-08-28] MEDS ORDERED: Furosemide 40 mg/4 ml IV VIAL IV SLOW PU ONE (09:25)
[2021-08-28 09:56] LABS: Mean Platelet Volume 8.4 fL (7.4-10.4); Platelet Count 299 10^3/uL (150-450)
[2021-08-28] MEDS ORDERED: Iohexol 300 (CONTRAST) 10 ML SDV IV ONE (10:11)
[2021-08-28] MEDS: Saline FLUSH-CENTRAL 10 ML SYRINGE CENT\\PICC SCH ×2 (10:52→22:38)
[2021-08-28] MEDS: VORICONAZOLE 50 MG PO SCH ×2 (11:02→22:38)
[2021-08-28] MEDS: Vancomycin 1,500 MG in NS 0.9% 250 ml 250 ML IVPB SCH ×2 (11:05→22:45)
[2021-08-28] MEDS ORDERED: Furosemide 20 mg/2 ml IV VIAL IV SLOW PU ONE (16:19)
[2021-08-28] MEDS ORDERED: Furosemide 20 mg/2 ml IV VIAL ONE (16:22)
[2021-08-28] MEDS: Warfarin DAILY REMINDER **NOTE FOLLOW UP SCH (17:03)
[2021-08-28] MEDS ORDERED: VORICONAZOLE IVPB SCH (21:00)
[2021-08-29] MEDS: CEFEPIME 2 GM in Dextrose 50 mL IV SCH ×2 (05:17→15:34)
[2021-08-29 06:35] LABS: INR 2.55 (0.86-1.15)
[2021-08-29] MEDS ORDERED: NS 0.9% 250 ml 250 ML ONE (09:30)
[2021-08-29] MEDS: Sulfamethox/Trimethoprim DS TAB 800/160 mg PO SCH ×2 (09:36→21:05)
[2021-08-29] MEDS: DULoxetine DR 60 mg CAP PO SCH (09:37)
[2021-08-29] MEDS: Propranolol 80 mg TAB PO SCH ×2 (09:37→21:05)
[2021-08-29] MEDS: VORICONAZOLE 50 MG PO SCH ×2 (09:38→21:06)
[2021-08-29] MEDS: Fluticasone NASAL SPRAY 50MCG 16 gm SPRAY BTL BOTH NARES SCH ×2 (09:42→22:22)
[2021-08-29] MEDS: PTO:Dalfampridine ER 10 mg (NF) TAB.ER.12H PO SCH ×2 (09:42→22:23)
[2021-08-29] MEDS ORDERED: Vancomycin Trough Check NOTE FOLLOW UP ONE (10:30)
[2021-08-29] MEDS: Saline FLUSH-CENTRAL 10 ML SYRINGE CENT\\PICC SCH ×2 (11:58→22:24)
[2021-08-29] MEDS: Vancomycin 1,500 MG in NS 0.9% 250 ml 250 ML IVPB SCH (12:02)
[2021-08-29] MEDS ORDERED: Furosemide 40 mg/4 ml IV VIAL IV ONE (13:02)
[2021-08-29] MEDS: Warfarin DAILY REMINDER **NOTE FOLLOW UP SCH (17:35)
[2021-08-29] MEDS: Vancomycin 1,750 MG in NS 0.9% 500 ml BAG 500 ML IVPB SCH (23:58)
[2021-08-30] MEDS: CEFEPIME 2 GM in Dextrose 50 mL IV SCH ×2 (05:33→16:48)
[2021-08-30 05:41] LABS: INR 2.63 (0.86-1.15)
[2021-08-30] MEDS: Sulfamethox/Trimethoprim DS TAB 800/160 mg PO SCH ×2 (10:05→23:28)
[2021-08-30] MEDS: Propranolol 80 mg TAB PO SCH ×2 (10:06→22:56)
[2021-08-30] MEDS: DULoxetine DR 60 mg CAP PO SCH (10:07)
[2021-08-30] MEDS: Fluticasone NASAL SPRAY 50MCG 16 gm SPRAY BTL BOTH NARES SCH ×2 (10:07→22:57)
[2021-08-30] MEDS: VORICONAZOLE 50 MG PO SCH ×2 (10:08→23:11)
[2021-08-30] MEDS: PTO:Dalfampridine ER 10 mg (NF) TAB.ER.12H PO SCH ×2 (10:08→23:11)
[2021-08-30] MEDS: Saline FLUSH-CENTRAL 10 ML SYRINGE CENT\\PICC SCH ×2 (10:09→22:56)
[2021-08-30] MEDS ORDERED: Furosemide 40 mg/4 ml IV VIAL IV SLOW PU ONE (10:40)
[2021-08-30] MEDS: Vancomycin 1,750 MG in NS 0.9% 500 ml BAG 500 ML IVPB SCH ×2 (11:01→23:28)
[2021-08-30] MEDS ORDERED: Sodium Chloride(INHALANT) 3% 4 ML NEB.SOLN INH SCH (12:00)
[2021-08-30] MEDS ORDERED: Albuterol/Ipratropium NEB.SOL (2.5/0.5 MG) 3 ML NEB.SOLN INH SCH (12:00)
[2021-08-30] MEDS ORDERED: Lorazepam PYXIS KEY PRN (12:11)
[2021-08-30] MEDS: Sodium Chloride(INHALANT) 3% 4 ML NEB.SOLN INH SCH ×4 (12:57→23:54)
[2021-08-30] MEDS: Albuterol/Ipratropium NEB.SOL (2.5/0.5 MG) 3 ML NEB.SOLN INH SCH ×4 (12:57→23:50)
[2021-08-30] MEDS: LORazepam 2 mg VIAL 1 ml IV PUSH PRN ×2 (13:00→20:16)
[2021-08-30] MEDS: Warfarin DAILY REMINDER **NOTE FOLLOW UP SCH (17:28)
[2021-08-30] MEDS ORDERED: Furosemide 40 mg/4 ml IV VIAL IV ONE ×3 (20:58→21:58)
[2021-08-30] MEDS ORDERED: Furosemide 40 mg/4 ml IV VIAL ONE ×2 (20:59→21:57)
[2021-08-30 21:17] LABS: ABS Basophils 0.1 10^3/ul (0-0.2); ABS Lymphocytes 0.6 10^3/ul (1.0-4.8); ABS Monocytes 0.8 10^3/ul (0-0.8); ABS Neutrophils 15.5 10^3/ul (1.5-7.7); Eosinophil % 0.2 %; Hematocrit 38 % (35-47); Hemoglobin 12.4 g/dL (12.0-16.0); Lymphocyte % 3.7 %; Mean Corpuscular HGB Conc 32 g/dL (31-36); Mean Corpuscular Hemoglobin 26 pg (27-31); Mean Corpuscular Volume 81 fL (80-97); Nucleated Red Blood Cells % 0.1; Platelet Count 313 10^3/uL (150-450); Red Blood Count 4.71 10^6 /uL (3.70-4.87); Red Cell Distribution Width 19 % (10-15)
[2021-08-30] MEDS ORDERED: methylPREDNISolone SOD 40 mg/ml 1 ml VIAL IV ONE (21:22)
[2021-08-30 21:23] LABS: PCO2 Arterial 54 mmHg (35-45)
[2021-08-30 21:36] LABS: ALT 20 U/L (7-52); AST 31 U/L (13-39); Albumin 3.5 g/dL (3.2-5.2); Albumin/Globulin Ratio 1.2 (1-3); Alkaline Phosphatase 89 U/L (35-149); Anion Gap 7 mmol/L (2-11); Blood Urea Nitrogen 16 mg/dL (6-24); C Reactive Protein 440.48 mg/L (<8.01); CO2 Carbon Dioxide 31 mmol/L (22-32); Calcium 9.6 mg/dL (8.6-10.3); Chloride 95 mmol/L (101-111); Glucose 109 mg/dL (70-100); Magnesium 2.1 mg/dL (1.9-2.7); Potassium 4.7 mmol/L (3.5-5.0); Sodium 133 mmol/L (135-145); Total Protein 6.5 g/dL (6.4-8.9); eGFR CKD-EPI 116.6 (>60)
[2021-08-30 21:37] LABS: PO2 Arterial 52 mmHg (80-100)
[2021-08-30] MEDS ORDERED: Bumetanide IV 0.25 MG/ML 4 ml VIAL (1 mg) SLOW PUSH ONE (21:43)
[2021-08-30 21:49] LABS: Troponin I 0.03 ng/mL (<0.03)
[2021-08-30] MEDS ORDERED: Rocuronium 50 mg VIAL 10 mg/ml 5 ml VIAL (50 mg) ONE (22:02)
[2021-08-30] MEDS ORDERED: Succinylcholine 200 mg VIAL 20 mg/ml 10 ml VIAL (200 mg) ONE (22:02)
[2021-08-30] MEDS ORDERED: Propofol 10 mg/ml 100 ML BTL 100 ML ONE (22:06)
[2021-08-30] MEDS: Propofol 10 mg/ml 100 ML BTL 100 ML IV SCH (22:15)
[2021-08-31] MEDS: Propofol 10 mg/ml 100 ML BTL 100 ML IV SCH ×9 (00:13→22:44)
[2021-08-31 00:23] LABS: PCO2 Arterial 44 mmHg (35-45); PO2 Arterial 98 mmHg (80-100)
[2021-08-31] MEDS: Chlorhexidine MOUTHWASH 0.12% 15 ML UDC TOPICAL SCH ×6 (00:38→19:55)
[2021-08-31] MEDS: Albuterol/Ipratropium NEB.SOL (2.5/0.5 MG) 3 ML NEB.SOLN INH SCH ×6 (03:07→22:48)
[2021-08-31] MEDS: Sodium Chloride(INHALANT) 3% 4 ML NEB.SOLN INH SCH ×2 (03:07→07:35)
[2021-08-31] MEDS: CEFEPIME 2 GM in Dextrose 50 mL IV SCH (05:20)
[2021-08-31 05:43] LABS: ABS Lymphocytes 0.5 10^3/ul (1.0-4.8); ABS Monocytes 0.2 10^3/ul (0-0.8); Eosinophil % 0.1 %; Hematocrit 35 % (35-47); Hemoglobin 12.1 g/dL (12.0-16.0); Mean Corpuscular HGB Conc 34 g/dL (31-36); Mean Corpuscular Hemoglobin 28 pg (27-31); Mean Corpuscular Volume 82 fL (80-97); Mean Platelet Volume 8.5 fL (7.4-10.4); Platelet Count 275 10^3/uL (150-450); Red Blood Count 4.29 10^6 /uL (3.70-4.87); Red Cell Distribution Width 19 % (10-15); White Blood Count 12.7 10^3/uL (3.5-10.8)
[2021-08-31 05:59] LABS: Blood Urea Nitrogen 25 mg/dL (6-24); CO2 Carbon Dioxide 28 mmol/L (22-32); Calcium 9.3 mg/dL (8.6-10.3); Chloride 88 mmol/L (101-111); Glucose 163 mg/dL (70-100); Sodium 128 mmol/L (135-145); eGFR CKD-EPI 78.2 (>60)
[2021-08-31 06:08] LABS: Anion Gap 12 mmol/L (2-11)
[2021-08-31] MEDS: Pantoprazole VIAL 40 MG VIAL IV SCH ×2 (08:08→22:43)
[2021-08-31 08:09] LABS: INR 2.79 (0.86-1.15)
[2021-08-31] MEDS: Sulfamethox/Trimethoprim DS TAB 800/160 mg PO SCH (08:09)
[2021-08-31] MEDS: Fluticasone NASAL SPRAY 50MCG 16 gm SPRAY BTL BOTH NARES SCH ×2 (08:10→22:42)
[2021-08-31 08:18] LABS: Magnesium 2.1 mg/dL (1.9-2.7); Potassium Redraw 4.2 mmol/L (3.5-5.0)
[2021-08-31] MEDS ORDERED: NF:Mirabegron 25 mg ER TAB (NF) PO SCH (09:00)
[2021-08-31] MEDS: VORICONAZOLE 50 MG PO SCH ×2 (09:51→22:26)
[2021-08-31] MEDS: PTO:Dalfampridine ER 10 mg (NF) TAB.ER.12H PO SCH ×2 (09:52→22:26)
[2021-08-31] MEDS: DULoxetine DR 60 mg CAP PO SCH (09:52)
[2021-08-31] MEDS ORDERED: Acetylcysteine INH SOL (RT) 200 MG/ML 4 ML VIAL INH PRN (10:05)
[2021-08-31] MEDS: Meropenem 2 GM in NS 0.9% 100 ml BAG 100 ML IVPB SCH ×2 (10:41→17:35)
[2021-08-31] MEDS: Saline FLUSH-CENTRAL 10 ML SYRINGE CENT\\PICC SCH ×2 (10:57→22:26)
[2021-08-31] MEDS ORDERED: guaiFENesin 100 mg/5 ml LIQ unit dose cup PO PRN (11:00)
[2021-08-31] MEDS ORDERED: Loperamide LIQ 2 MG/15 ML UDC PO PRN (11:00)
[2021-08-31] MEDS ORDERED: Vancomycin Trough Check NOTE FOLLOW UP ONE (11:00)
[2021-08-31] MEDS: Vancomycin 1,750 MG in NS 0.9% 500 ml BAG 500 ML IVPB SCH ×2 (11:41→22:42)
[2021-08-31] MEDS: Acetylcysteine INH SOL (RT) 200 MG/ML 4 ML VIAL INH SCH ×4 (11:45→22:48)
[2021-08-31] MEDS ORDERED: Furosemide 40 mg/4 ml IV VIAL IV SLOW PU ONE (13:13)
[2021-08-31] MEDS: Warfarin DAILY REMINDER **NOTE FOLLOW UP SCH (17:59)
[2021-08-31] MEDS ORDERED: Succinylcholine 200 mg VIAL 20 mg/ml 10 ml VIAL (200 mg) ONE (20:59)
[2021-08-31] MEDS ORDERED: Rocuronium 50 mg VIAL 10 mg/ml 5 ml VIAL (50 mg) ONE (21:00)
[2021-08-31] MEDS: fentaNYL 100 mcg/2 ml 50 MCG/ML VIAL IV SLOW PU PRN (21:17)
[2021-09-01] MEDS: Chlorhexidine MOUTHWASH 0.12% 15 ML UDC TOPICAL SCH ×7 (01:37→23:38)
[2021-09-01] MEDS: Propofol 10 mg/ml 100 ML BTL 100 ML IV SCH ×11 (01:57→23:38)
[2021-09-01] MEDS: Meropenem 2 GM in NS 0.9% 100 ml BAG 100 ML IVPB SCH ×3 (02:18→17:03)
[2021-09-01] MEDS: Albuterol/Ipratropium NEB.SOL (2.5/0.5 MG) 3 ML NEB.SOLN INH SCH ×2 (02:53→09:06)
[2021-09-01] MEDS: Acetylcysteine INH SOL (RT) 200 MG/ML 4 ML VIAL INH SCH ×2 (02:57→09:06)
[2021-09-01] MEDS: fentaNYL 100 mcg/2 ml 50 MCG/ML VIAL IV SLOW PU PRN ×3 (03:48→21:40)
[2021-09-01 04:18] LABS: ABS Basophils 0.1 10^3/ul (0-0.2); ABS Lymphocytes 0.6 10^3/ul (1.0-4.8); ABS Monocytes 0.5 10^3/ul (0-0.8); ABS Neutrophils 16.7 10^3/ul (1.5-7.7); Hematocrit 33 % (35-47); Lymphocyte % 3.2 %; Mean Corpuscular HGB Conc 33 g/dL (31-36); Mean Corpuscular Hemoglobin 27 pg (27-31); Mean Corpuscular Volume 80 fL (80-97); Mean Platelet Volume 8.4 fL (7.4-10.4); Platelet Count 281 10^3/uL (150-450); Red Cell Distribution Width 19 % (10-15); White Blood Count 17.9 10^3/uL (3.5-10.8)
[2021-09-01 04:30] LABS: INR 3.13 (0.86-1.15)
[2021-09-01 04:35] LABS: Calcium 9.3 mg/dL (8.6-10.3); Magnesium 2.1 mg/dL (1.9-2.7); Potassium 3.7 mmol/L (3.5-5.0); eGFR CKD-EPI 70.1 (>60)
[2021-09-01] MEDS: LORazepam 2 mg VIAL 1 ml IV PUSH PRN (07:37)
[2021-09-01] MEDS: VORICONAZOLE 50 MG PO SCH ×2 (07:48→20:57)
[2021-09-01] MEDS: Pantoprazole VIAL 40 MG VIAL IV SCH ×2 (07:48→20:57)
[2021-09-01] MEDS: Fluticasone NASAL SPRAY 50MCG 16 gm SPRAY BTL BOTH NARES SCH ×2 (07:49→21:42)
[2021-09-01] MEDS: PTO:Dalfampridine ER 10 mg (NF) TAB.ER.12H PO SCH ×2 (07:49→21:42)
[2021-09-01] MEDS: Dexmedetomidine 1,000 MCG in NS 0.9% 250 ml 240 ML IV SCH (09:04)
[2021-09-01] MEDS ORDERED: Furosemide 40 mg/4 ml IV VIAL IV SLOW PU ONE (09:20)
[2021-09-01] MEDS: Saline FLUSH-CENTRAL 10 ML SYRINGE CENT\\PICC SCH ×2 (10:54→22:46)
[2021-09-01] MEDS: DULoxetine DR 60 mg CAP PO SCH ×2 (10:58→11:02)
[2021-09-01] MEDS: Vancomycin 1,750 MG in NS 0.9% 500 ml BAG 500 ML IVPB SCH ×2 (11:12→23:28)
[2021-09-01] MEDS: Warfarin DAILY REMINDER **NOTE FOLLOW UP SCH (18:38)
[2021-09-02] MEDS: Midazolam 2 mg/2 ml VIAL 1 mg/ml 2 ml VIAL (2 mg) IV SLOW PU PRN ×3 (00:04→23:02)
[2021-09-02] MEDS: Dexmedetomidine 1,000 MCG in NS 0.9% 250 ml 240 ML IV SCH ×2 (01:11→13:24)
[2021-09-02] MEDS: Meropenem 2 GM in NS 0.9% 100 ml BAG 100 ML IVPB SCH ×3 (02:20→18:01)
[2021-09-02] MEDS: Propofol 10 mg/ml 100 ML BTL 100 ML IV SCH ×9 (04:37→22:21)
[2021-09-02] MEDS: Chlorhexidine MOUTHWASH 0.12% 15 ML UDC TOPICAL SCH ×5 (04:38→19:56)
[2021-09-02 05:17] LABS: ABS Eosinophils 0.2 10^3/ul (0-0.6); ABS Lymphocytes 0.6 10^3/ul (1.0-4.8); ABS Monocytes 0.3 10^3/ul (0-0.8); ABS Neutrophils 7.5 10^3/ul (1.5-7.7); Eosinophil % 1.8 %; Hematocrit 31 % (35-47); Hemoglobin 10.4 g/dL (12.0-16.0); Lymphocyte % 7.4 %; Mean Corpuscular HGB Conc 33 g/dL (31-36); Mean Corpuscular Hemoglobin 27 pg (27-31); Mean Corpuscular Volume 80 fL (80-97); Platelet Count 225 10^3/uL (150-450); Red Blood Count 3.91 10^6 /uL (3.70-4.87); Red Cell Distribution Width 18 % (10-15); White Blood Count 8.6 10^3/uL (3.5-10.8)
[2021-09-02 05:24] LABS: INR 1.91 (0.86-1.15)
[2021-09-02 05:44] LABS: Magnesium 2.1 mg/dL (1.9-2.7); eGFR CKD-EPI 93.3 (>60)
[2021-09-02] MEDS: fentaNYL 100 mcg/2 ml 50 MCG/ML VIAL IV SLOW PU PRN ×4 (08:28→17:53)
[2021-09-02] MEDS: DULoxetine DR 60 mg CAP PO SCH (09:14)
[2021-09-02] MEDS: Pantoprazole VIAL 40 MG VIAL IV SCH ×2 (09:14→21:44)
[2021-09-02] MEDS: VORICONAZOLE 50 MG PO SCH ×2 (09:15→22:20)
[2021-09-02] MEDS: Fluticasone NASAL SPRAY 50MCG 16 gm SPRAY BTL BOTH NARES SCH (09:52)
[2021-09-02] MEDS: Saline FLUSH-CENTRAL 10 ML SYRINGE CENT\\PICC SCH ×2 (10:18→22:07)
[2021-09-02] MEDS: PTO:Dalfampridine ER 10 mg (NF) TAB.ER.12H PO SCH (11:52)
[2021-09-02] MEDS: Polyethylene Glycol 3350 17 GM PACKET PO SCH (11:53)
[2021-09-02] MEDS: Vancomycin 1,750 MG in NS 0.9% 500 ml BAG 500 ML IVPB SCH ×2 (11:53→23:05)
[2021-09-02] MEDS ORDERED: Furosemide 40 mg/4 ml IV VIAL IV SLOW PU ONE (13:39)
[2021-09-02] MEDS: Warfarin DAILY REMINDER **NOTE FOLLOW UP SCH (18:01)
[2021-09-03] MEDS: Dexmedetomidine 1,000 MCG in NS 0.9% 250 ml 240 ML IV SCH ×3 (00:16→19:15)
[2021-09-03] MEDS: Chlorhexidine MOUTHWASH 0.12% 15 ML UDC TOPICAL SCH ×6 (00:16→21:35)
[2021-09-03] MEDS: Propofol 10 mg/ml 100 ML BTL 100 ML IV SCH ×14 (00:17→23:33)
[2021-09-03] MEDS: Meropenem 2 GM in NS 0.9% 100 ml BAG 100 ML IVPB SCH ×3 (02:37→17:45)
[2021-09-03] MEDS: Midazolam 2 mg/2 ml VIAL 1 mg/ml 2 ml VIAL (2 mg) IV SLOW PU PRN ×2 (02:37→23:20)
[2021-09-03] MEDS: fentaNYL 100 mcg/2 ml 50 MCG/ML VIAL IV SLOW PU PRN ×2 (03:56→22:39)
[2021-09-03 04:26] LABS: INR 1.43 (0.86-1.15)
[2021-09-03 04:33] LABS: Calcium 8.7 mg/dL (8.6-10.3); Magnesium 2.1 mg/dL (1.9-2.7)
[2021-09-03 04:35] LABS: ABS Eosinophils 0.7 10^3/ul (0-0.6); ABS Lymphocytes 0.8 10^3/ul (1.0-4.8); ABS Monocytes 0.4 10^3/ul (0-0.8); ABS Neutrophils 6.7 10^3/ul (1.5-7.7); Eosinophil % 8.6 %; Hematocrit 36 % (35-47); Hemoglobin 11.6 g/dL (12.0-16.0); Lymphocyte % 8.9 %; Mean Corpuscular HGB Conc 32 g/dL (31-36); Mean Corpuscular Hemoglobin 27 pg (27-31); Mean Corpuscular Volume 84 fL (80-97); Mean Platelet Volume 8.4 fL (7.4-10.4); Nucleated Red Blood Cells % 0.1; Platelet Count 150 10^3/uL (150-450); Red Blood Count 4.31 10^6 /uL (3.70-4.87); Red Cell Distribution Width 19 % (10-15); White Blood Count 8.6 10^3/uL (3.5-10.8)
[2021-09-03 04:39] LABS: eGFR CKD-EPI 113.9 (>60)
[2021-09-03 04:52] LABS: Potassium 4.3 mmol/L (3.5-5.0)
[2021-09-03] MEDS: Albuterol/Ipratropium NEB.SOL (2.5/0.5 MG) 3 ML NEB.SOLN INH PRN (07:28)
[2021-09-03] MEDS: DULoxetine DR 60 mg CAP PO SCH (08:55)
[2021-09-03] MEDS ORDERED: Furosemide 40 mg/4 ml IV VIAL IV SLOW PU ONE (08:56)
[2021-09-03] MEDS: Polyethylene Glycol 3350 17 GM PACKET PO SCH (08:57)
[2021-09-03] MEDS: VORICONAZOLE 50 MG PO SCH ×2 (08:57→21:35)
[2021-09-03] MEDS: Pantoprazole VIAL 40 MG VIAL IV SCH ×2 (08:57→21:38)
[2021-09-03] MEDS ORDERED: Furosemide 40 mg/4 ml IV VIAL ONE (09:03)
[2021-09-03] MEDS: Saline FLUSH-CENTRAL 10 ML SYRINGE CENT\\PICC SCH ×2 (09:06→21:45)
[2021-09-03] MEDS ORDERED: Vancomycin Trough Check NOTE FOLLOW UP ONE (10:30)
[2021-09-03] MEDS: Vancomycin 1,750 MG in NS 0.9% 500 ml BAG 500 ML IVPB SCH (13:51)
[2021-09-03] MEDS: Alteplase (CATHFLO) 2 MG VIAL IV ONE ×2 (14:38→15:12)
[2021-09-03] MEDS: Warfarin DAILY REMINDER **NOTE FOLLOW UP SCH (18:48)
[2021-09-03] MEDS: Vancomycin 1,500 MG in NS 0.9% 250 ml 250 ML IVPB SCH (21:38)
[2021-09-03] MEDS ORDERED: LORazepam 2 mg VIAL 1 ml IV PUSH PRN (22:51)
[2021-09-04] MEDS: Dexmedetomidine 1,000 MCG in NS 0.9% 250 ml 240 ML IV SCH ×5 (00:28→22:03)
[2021-09-04] MEDS: fentaNYL 100 mcg/2 ml 50 MCG/ML VIAL IV SLOW PU PRN ×3 (00:51→06:41)
[2021-09-04] MEDS: Chlorhexidine MOUTHWASH 0.12% 15 ML UDC TOPICAL SCH ×6 (01:13→19:29)
[2021-09-04] MEDS: Propofol 10 mg/ml 100 ML BTL 100 ML IV SCH ×14 (01:13→22:05)
[2021-09-04] MEDS: Meropenem 2 GM in NS 0.9% 100 ml BAG 100 ML IVPB SCH ×3 (01:41→19:02)
[2021-09-04] MEDS: Midazolam 2 mg/2 ml VIAL 1 mg/ml 2 ml VIAL (2 mg) IV SLOW PU PRN (02:53)
[2021-09-04 05:18] LABS: ABS Basophils 0.1 10^3/ul (0-0.2); ABS Eosinophils 0.6 10^3/ul (0-0.6); ABS Lymphocytes 0.9 10^3/ul (1.0-4.8); ABS Monocytes 0.7 10^3/ul (0-0.8); ABS Neutrophils 11.1 10^3/ul (1.5-7.7); Eosinophil % 4.8 %; Hematocrit 33 % (35-47); Hemoglobin 10.6 g/dL (12.0-16.0); Lymphocyte % 6.4 %; Mean Corpuscular HGB Conc 32 g/dL (31-36); Mean Corpuscular Hemoglobin 27 pg (27-31); Mean Corpuscular Volume 83 fL (80-97); Mean Platelet Volume 7.8 fL (7.4-10.4); Platelet Count 139 10^3/uL (150-450); Red Blood Count 3.99 10^6 /uL (3.70-4.87); Red Cell Distribution Width 18 % (10-15); White Blood Count 13.4 10^3/uL (3.5-10.8)
[2021-09-04 05:24] LABS: INR 1.34 (0.86-1.15)
[2021-09-04 05:36] LABS: Calcium 8.7 mg/dL (8.6-10.3); Magnesium 2.3 mg/dL (1.9-2.7); Potassium 4.5 mmol/L (3.5-5.0); eGFR CKD-EPI 84.5 (>60)
[2021-09-04] MEDS: Vancomycin 1,500 MG in NS 0.9% 250 ml 250 ML IVPB SCH ×2 (08:03→20:48)
[2021-09-04] MEDS: DULoxetine DR 60 mg CAP PO SCH (08:03)
[2021-09-04] MEDS: VORICONAZOLE 50 MG PO SCH ×2 (08:04→20:46)
[2021-09-04] MEDS: Pantoprazole VIAL 40 MG VIAL IV SCH ×2 (08:05→20:46)
[2021-09-04] MEDS: Polyethylene Glycol 3350 17 GM PACKET PO SCH (08:06)
[2021-09-04] MEDS: Saline FLUSH-CENTRAL 10 ML SYRINGE CENT\\PICC SCH ×2 (10:28→22:05)
[2021-09-04] MEDS ORDERED: Furosemide 40 mg/4 ml IV VIAL IV SLOW PU ONE (13:12)
[2021-09-04] MEDS: Albuterol/Ipratropium NEB.SOL (2.5/0.5 MG) 3 ML NEB.SOLN INH PRN (13:16)
[2021-09-04 13:50] LABS: PCO2 Arterial 99 mmHg (35-45); PO2 Arterial 59 mmHg (80-100)
[2021-09-04 15:51] LABS: PO2 Arterial 68 mmHg (80-100)
[2021-09-04 15:59] LABS: PCO2 Arterial 90 mmHg (35-45)
[2021-09-04] MEDS: Warfarin DAILY REMINDER **NOTE FOLLOW UP SCH (18:12)
[2021-09-04 22:33] LABS: PO2 Arterial 73 mmHg (80-100)
[2021-09-04 22:37] LABS: PCO2 Arterial 77 mmHg (35-45)
[2021-09-04] MEDS ORDERED: fentaNYL INFUSION 50 mcg/mL VL 2,500 MCG/50 ML VIAL IV SCH ×2 (23:00)
[2021-09-04] MEDS ORDERED: Midazolam 50 MG VIAL IV DRIP 50 ML IV SCH ×2 (23:00)
[2021-09-05] MEDS ORDERED: Midazolam 5 mg/5 ml VIAL 1 mg/ml 5 ml VIAL (5 mg) ONE (00:03)
[2021-09-05] MEDS ORDERED: Midazolam 5 mg/5 ml VIAL 1 mg/ml 5 ml VIAL (5 mg) IV SLOW PU ONE (00:05)
[2021-09-05] MEDS ORDERED: Rocuronium 50 mg VIAL 10 mg/ml 5 ml VIAL (50 mg) ONE (01:21)
[2021-09-05] MEDS ORDERED: Rocuronium 50 mg VIAL 10 mg/ml 5 ml VIAL (50 mg) IV ONE (01:21)
[2021-09-05 03:44] VITALS: BP 69/52
[2021-09-05] MEDS: Chlorhexidine MOUTHWASH 0.12% 15 ML UDC TOPICAL SCH (04:02)
[2021-09-07] MEDS ORDERED: Vancomycin Trough Check NOTE FOLLOW UP ONE (08:30)
== END 2021-09-05 01:55 | disposition expired | DRG 207 ==
LOC: ED 00:36 → SUATTDRO 03:17 → ICU 03:17
PROVIDERS: ADMIT Internal Medicine; ATTEND Internal Medicine Critical Care Medicine